=== PATIENT | male | born 1950 | race Caucasian/White ===

== ENCOUNTER → 2018-08-31 13:32 | Outpatient (CLI) | payer MEDICARE | END | disposition home or self-care (01) | LOC: D.RAD 13:32 | DX: M25.531 Pain in right wrist (principal) ==

== ENCOUNTER 2018-10-21 13:21 | Inpatient (IN) | payer MEDICARE ==
[~2018-10-21] VITALS: Ht 188 cm; Wt 122.5 kg
[2018-10-21] MEDS ORDERED: SINGULAIR10 MG PO (13:35)
[2018-10-21] MEDS ORDERED: HYDROCODON-ACE1 EA10 PO (13:35)
[2018-10-21] MEDS ORDERED: MOVANTIK25 MG PO (13:36)
[2018-10-21] MEDS ORDERED: FLOMAX0.4 MG PO (13:36)
[2018-10-21] MEDS ORDERED: COZAAR50 MG PO (13:37)
[2018-10-21] MEDS ORDERED: HCTZ25 MG PO (13:37)
[2018-10-21] MEDS ORDERED: CLARITIN 10 MG10 MG PO (13:38)
[2018-10-21] MEDS ORDERED: PROVENTIL/2.5 MG/3 M INH (13:38)
[2018-10-21] MEDS ORDERED: LYRICA25 MG PO (13:38)
[2018-10-21] MEDS ORDERED: FLOVENT HFA 22012 GM INH (13:39)
[2018-10-21] MEDS ORDERED: ATROVENT 0.02%2.5 ML UPD (13:39)
[2018-10-21 14:45] VITALS: BP 163/79
[2018-10-21 14:46] LABS: BASOPHILS 0.4 % (0-2); EOSINOPHILS 0.6 % (0-7); HEMATOCRIT 43.5 % (42.0-54.0); HEMOGLOBIN 15.4 g/dL (13.5-17.5); IMMATURE GRANULOCYTES 0.3 % (0-5); LYMPHOCYTES 19.4 % (15-50); MCH 33.9 pg (26.0-34.0); MCHC 35.4 g/dL (31.0-37.0); MCV 95.8 fL (80.0-100.0); MEAN PLATELET VOLUME 9.2 fL (7.4-10.4); MONOCYTES 11.4 % (2-11); NEUTROPHILS 67.9 % (40-80); PLATELET COUNT 372 10x3/uL (130-400); RBC 4.54 10x6/uL (4.20-6.10); RDW 12.5 % (11.5-14.5)
[2018-10-21 14:54] LABS: APTT 27.6 SECONDS (22.8-39.4); INR 1.13 (0.85-1.17)
[2018-10-21 15:03] LABS: ALBUMIN 3.8 g/dL (3.4-5.0); ALKALINE PHOSPHATASE 101 U/L (46-116); ALT (SGPT) 23 U/L (10-68); BILIRUBIN - TOTAL 0.84 mg/dL (0.2-1.3); CALC OSMOLALITY 265 mosm/kg (275-300); CALCIUM 9.2 mg/dL (8.5-10.1); CARBON DIOXIDE 29.8 mmol/L (21.0-32.0); CHLORIDE - SERUM 96 mmol/L (98-107); CREATININE - SERUM 1.5 mg/dL (0.6-1.3); GLUCOSE 118 mg/dL (74-106); POTASSIUM - SERUM 3.6 mmol/L (3.5-5.1); PROTEIN - SERUM 8.2 g/dL (6.4-8.2); SODIUM 133 mmol/L (136-145); UREA NITROGEN 10 mg/dL (7-18); eGFR NON AFRICAN AMERICAN 49 mL/min (90-120)
[2018-10-21 15:15] LABS: CKMB 0.4 U/L (0.0-3.6); CREATINE KINASE 59 UL (21-232); PRO BNP 98 pg/mL (0-125)
[2018-10-21 15:16] LABS: TROPONIN-I < 0.017 ng/mL (0.000-0.060)
[2018-10-21 15:45] VITALS: BP 145/73
[2018-10-21 17:26] VITALS: BP 163/91
[2018-10-21 18:20] VITALS: BP 163/91
--- NOTE | 2018-10-21 18:40 | NUR ---
ATTEMPTED TO AMB PT FROM BED TO HW. PT BECAME VERY DYSPNIC AND STARTED COUGHING INITIAL SATS =97% AFTER BACK TO BED SATS 90-92% ON RA
--- NOTE | 2018-10-21 19:14 | NUR ---
BS REPORT TO ARIANNE MCHUGH
[2018-10-21 19:25] VITALS: BP 137/77
[2018-10-21 22:52] VITALS: BP 141/73; BMI 34.7
[2018-10-22] VITALS: BP 138/69
[2018-10-22 03:00] VITALS: BP 139/72
[2018-10-22 06:36] LABS: BASOPHILS 0 % (0-2); EOSINOPHILS 0.1 % (0-7); HEMOGLOBIN 13.2 g/dL (13.5-17.5); IMMATURE GRANULOCYTES 0.2 % (0-5); LYMPHOCYTES 6.2 % (15-50); MCH 33.3 pg (26.0-34.0); MCHC 34.7 g/dL (31.0-37.0); MEAN PLATELET VOLUME 9.2 fL (7.4-10.4); MONOCYTES 1.1 % (2-11); NEUTROPHILS 92.4 % (40-80); PLATELET COUNT 331 10x3/uL (130-400); RBC 3.96 10x6/uL (4.20-6.10); RDW 12.4 % (11.5-14.5); WBC 9.9 10x3/uL (4.8-10.8)
[2018-10-22 06:53] LABS: ANION GAP 14.5 mmol/L (8-16); CALCIUM 8.8 mg/dL (8.5-10.1); CARBON DIOXIDE 25.2 mmol/L (21.0-32.0); CREATININE - SERUM 1.3 mg/dL (0.6-1.3); POTASSIUM - SERUM 3.7 mmol/L (3.5-5.1)
--- NOTE | 2018-10-22 07:55 | NUR ---
PT ALERT X 4. EXPIRATORY WHEEZES TO ALL [place]. TELEMETRY IN PLACE. REPORTING PAIN OF 8/10, WILL MONITOR. IV TO RIGHT FOREARM, PATENT, DRESSING CLEAN DRY AND INTACT. BED LOW, CALL LIGHT IN REACH. NO OTHER NEEDS AT THIS TIME.
[2018-10-22 09:07] VITALS: BP 146/73
[2018-10-22 10:41] VITALS: Ht 188 cm; Wt 122.5 kg
--- NOTE | 2018-10-22 10:45 | NUR ---
I have reviewed this patient and I concur with the Shift Assessment completed by the Licensed Practical Nurse today this shift.
[2018-10-22 14:16] VITALS: BP 126/66
[2018-10-22 17:15] VITALS: BP 129/67
[2018-10-22 20:00] VITALS: BP 119/58
--- NOTE | 2018-10-22 20:15 | NUR ---
LYING IN BED WITH EYES CLOSED. AWAKENED FOR ASSESSMENT. ORIENTED X4. DENIES PAIN. RESP EVEN AND NONLABORED. BBS DIMINSHED BILAT. TELEMETRY SHOWS SR WITH RATE OF 73. NO EDEMA NOTED. SCDS IN USE BILAT. USES URINAL. NS @ 75 ML/HR INFUSING IN RT FOREARM WITHOUT DIFF. RAY ALARM ON FOR PT SAFETY. SR ELEVATED X2. CL IN REACH.
--- NOTE | 2018-10-22 22:35 | NUR ---
MEDICATED WITH MORPHINE FOR C/O CHRONIC NECK AND BACK PAIN. GIVEN SNACK PER REQUEST. CL IN REACH.
--- NOTE | 2018-10-23 00:05 | NUR ---
PT HAD REQUESTED EARLIER THAT HE NOT BE AWAKENED FOR MIDNIGHT V/S.
--- NOTE | 2018-10-23 02:31 | NUR ---
REQUESTED POPSICLE. MEDICATED WITH MORPHINE FOR C/O PAIN IN NECK AND BACK. TALKATIVE WITH STAFF. NO DISTRESS. SR ELEVATED X2. CL IN REACH. RAY ALARM I USE.
[2018-10-23 03:00] VITALS: BP 109/63
[2018-10-23 06:55] LABS: BASOPHILS 0.1 % (0-2); EOSINOPHILS 0 % (0-7); HEMATOCRIT 38.1 % (42.0-54.0); HEMOGLOBIN 12.9 g/dL (13.5-17.5); IMMATURE GRANULOCYTES 0.2 % (0-5); LYMPHOCYTES 4.1 % (15-50); MCH 33.1 pg (26.0-34.0); MCHC 33.9 g/dL (31.0-37.0); MCV 97.7 fL (80.0-100.0); MEAN PLATELET VOLUME 9.5 fL (7.4-10.4); MONOCYTES 2.8 % (2-11); NEUTROPHILS 92.8 % (40-80); PLATELET COUNT 328 10x3/uL (130-400); RDW 12.8 % (11.5-14.5)
[2018-10-23 06:58] LABS: WBC 19.2 10x3/uL (4.8-10.8)
--- NOTE | 2018-10-23 07:42 | NUR ---
PT ALERT X 4. BREATH SOUNDS DIMINISHED TO LOWER LOBES, INSPIRATORY AND EXPIRATORY WHEEZES TO LEFT SIDE, EXPIRATORY WHEEZES TO RIGHT SIDE. TELEMETRY IN PLACE. IV TO RIGHT FOREARM, PATENT, DRESSING CLEAN DRY AND INTACT. SCD'S IN PLACE. PT REPORTING PAIN OF 5/10, NOT WANTING MEDICATION AT THIS TIME, WILL MONITOR. BED LOW, CALL LIGHT IN REACH. NO OTHER NEEDS AT THIS TIME.
[2018-10-23 09:54] VITALS: BP 125/60
[2018-10-23 10:08] LABS: ALBUMIN 2.9 g/dL (3.4-5.0); ANION GAP 13.8 mmol/L (8-16); BILIRUBIN - TOTAL 0.36 mg/dL (0.2-1.3); CALCIUM 8.3 mg/dL (8.5-10.1); CARBON DIOXIDE 26.6 mmol/L (21.0-32.0); CREATININE - SERUM 1.4 mg/dL (0.6-1.3); POTASSIUM - SERUM 3.4 mmol/L (3.5-5.1); PROTEIN - SERUM 6.5 g/dL (6.4-8.2)
[2018-10-23 13:43] VITALS: BP 100/58
--- NOTE | 2018-10-23 16:24 | NUR ---
I have reviewed this patient and I concur with the Shift Assessment completed by the Licensed Practical Nurse today this shift.
[2018-10-23 17:49] VITALS: BP 139/73
--- NOTE | 2018-10-23 19:15 | NUR ---
SITTING UP IN BED. ALERT AND ORIENTED X4. C/O PAIN IN BACK RATING 8. RESP IRREG. BBS EXP WHEEZES. TELEMETRY SHOWS SR WITH RATE OF 71 WITH PACS. SCDS IN USE BILAT. NO EDEMA NOTED. BRUISES NOTED TO BUE. SALINE LOCK NOTED TO LT WRIST. RAY ALARM ON FOR PT SAFETY. AMB WITH ASSIST X1. SR ELEVATED X2. CL IN REACH.
--- NOTE | 2018-10-23 19:25 | NUR ---
MEDICATED WITH FLEXERIL ORDERED FOR C/O BACK PAIN. CL IN REACH.
[2018-10-23 20:00] VITALS: BP 143/66
--- NOTE | 2018-10-24 02:20 | NUR ---
HAS RESTED WELL TONIGHT. LYING IN BED WITH EYES CLOSED. RESP EVEN AND NONLABORED. NO DISTRESS. SR ELEVATED X2. CL IN REACH.
[2018-10-24 03:00] VITALS: BP 152/84
--- NOTE | 2018-10-24 05:50 | NUR ---
MEDICATED WITH NORCO ORDERED FOR C/O BACK PAIN RATING 8. CL IN REACH.
[2018-10-24 07:51] LABS: BASOPHILS 0 % (0-2); EOSINOPHILS 0 % (0-7); HEMATOCRIT 38.7 % (42.0-54.0); HEMOGLOBIN 13.1 g/dL (13.5-17.5); IMMATURE GRANULOCYTES 0.3 % (0-5); LYMPHOCYTES 4.5 % (15-50); MCHC 33.9 g/dL (31.0-37.0); MCV 97.5 fL (80.0-100.0); MEAN PLATELET VOLUME 9.5 fL (7.4-10.4); MONOCYTES 8.2 % (2-11); PLATELET COUNT 320 10x3/uL (130-400); RBC 3.97 10x6/uL (4.20-6.10); RDW 12.6 % (11.5-14.5); WBC 14.3 10x3/uL (4.8-10.8)
[2018-10-24 08:07] LABS: ANION GAP 11.7 mmol/L (8-16); BILIRUBIN - TOTAL 0.4 mg/dL (0.2-1.3); CALCIUM 8.7 mg/dL (8.5-10.1); CARBON DIOXIDE 27.9 mmol/L (21.0-32.0); CREATININE - SERUM 1.3 mg/dL (0.6-1.3); POTASSIUM - SERUM 3.6 mmol/L (3.5-5.1); PROTEIN - SERUM 6.5 g/dL (6.4-8.2)
[2018-10-24 11:16] VITALS: BP 154/84
[2018-10-24 14:37] VITALS: BP 145/74
--- NOTE | 2018-10-24 14:42 | NUR ---
REQUESTED AND RECEIVED A NEWSPAPER. CO BACK PAIN STILL AT A 03/28. REQUESTS SOME BENADRYL FOR ITCHING NOT ORDERED BUT WILL ASK DR. SCHMIDT
--- NOTE | 2018-10-24 15:44 | NUR ---
OT NOTE: PT COMPLETED SIMPLE HYGIENE TASK SUPINE IN BED WITH SET UP. PT COMPLETED UE AROM AXS . THANK YOU, HARESH WALLACE
[2018-10-24 18:12] VITALS: BP 132/84
[2018-10-24 21:57] VITALS: BP 136/71
[2018-10-25 05:19] VITALS: BP 136/67
[2018-10-25 07:20] LABS: BASOPHILS 0 % (0-2); EOSINOPHILS 0 % (0-7); HEMOGLOBIN 13.7 g/dL (13.5-17.5); IMMATURE GRANULOCYTES 0.3 % (0-5); LYMPHOCYTES 13.8 % (15-50); MCH 33.5 pg (26.0-34.0); MCHC 34.3 g/dL (31.0-37.0); MCV 97.8 fL (80.0-100.0); MEAN PLATELET VOLUME 9.6 fL (7.4-10.4); MONOCYTES 12.7 % (2-11); NEUTROPHILS 73.2 % (40-80); PLATELET COUNT 284 10x3/uL (130-400); RBC 4.09 10x6/uL (4.20-6.10); RDW 12.5 % (11.5-14.5); WBC 12.9 10x3/uL (4.8-10.8)
--- NOTE | 2018-10-25 08:00 | NUR ---
PT RESTING EYES CLOSED EASY RISE AND FALL OF CHEST, NO SIGNS OF DISTRESS NOTED, WILL CONTINUE TO MONITOR CL IN REACH
[2018-10-25 08:10] LABS: ALBUMIN 3.2 g/dL (3.4-5.0); BILIRUBIN - TOTAL 0.73 mg/dL (0.2-1.3); CALCIUM 8.7 mg/dL (8.5-10.1); CARBON DIOXIDE 29.9 mmol/L (21.0-32.0); CREATININE - SERUM 1.4 mg/dL (0.6-1.3); PROTEIN - SERUM 6.7 g/dL (6.4-8.2)
[2018-10-25 08:28] LABS: ANION GAP 9.6 mmol/L (8-16); POTASSIUM - SERUM 3.5 mmol/L (3.5-5.1)
[2018-10-25 08:55] VITALS: BP 146/82
--- NOTE | 2018-10-25 09:49 | MORECARE ---
CASE MANAGEMENT DISCHARGE SUMMARY PATIENT: CHAZ HUGGINS UNIT: [id number] ADM DATE: 10/21/18 AGE: 68 : 49 SEX: M ROOM/BED: D.2240 AUTHOR: DIOMEDES ANDRADE PHYSICIAN: REFERRING PHYSICIAN: PATRIA MENG DO DATE OF SERVICE: 10/25/18 Discharge Plan Patient Name: CHAZ HUGGINS [facility] [facility] 1950 Planned Disposition: Inpatient Rehab Anticipated Discharge Date: Discharge Date: Expected LOS: Initial Reviewer: [email or web address] Initial Review Date: 10/25/2018 Generated: 10/25/18 10:49 am Patient Name: CHAZ HUGGINS Page [id number] at 0949 All edits/amendments must be made on the electronic document DICTATION DATE: 10/25/18948 SCHOOL ADMISSIONS REPRESENTATIVE: JACK 10/25/18948 RPT#: [id number] DC DATE: STATUS: ADM IN [facility] [address] [place] [address] END OF REPORT
--- NOTE | 2018-10-25 09:56 | MORECARE ---
CASE MANAGEMENT DISCHARGE SUMMARY PATIENT: CHAZ HUGGINS UNIT: [id number] ADM DATE: 10/21/18 AGE: 68 : 49 SEX: M ROOM/BED: D.2240 AUTHOR: DIOMEDES ANDRADE PHYSICIAN: REFERRING PHYSICIAN: PATRIA MENG DO DATE OF SERVICE: 10/25/18 Discharge Plan Patient Name: CHAZ HUGGINS [facility] : 1950 Planned Disposition: Inpatient Rehab Anticipated Discharge Date: Discharge Date: Expected LOS: Initial Reviewer: [email or web address] Initial Review Date: 10/25/2018 Generated: 10/25/18 10:56 am DCPIA - Discharge Planning Initial Assessment Updated by [email or web address]: Amarilis Eisenberg on 10/25/18 9:50 am * Is the patient Alert and Oriented? Yes * How many steps to enter\exit or inside your home? 6/0 * PCP Dr. Gilmar Chew in [place] * Pharmacy [facility] on [address] * Preadmission Environment Home Alone * ADLs Partial Dependent * Partial ADLs (Assistance needed) Ambulation * Equipment Cane Nebulizer Oxygen * List name and contact numbers for known caregivers / representatives who currently or will assist patient after discharge: Blaise Dela Cruz - [phone] * Verbal permission to speak to the caregivers and representatives has been obtained from the patient. Yes * Community resources currently utilized None * Additional services required to return to the preadmission environment? No * Can the patient safely return to the preadmission environment? Yes * Has this patient been hospitalized within the prior 30 days at any hospital? No Last DP export: 10/25/18 8:49 am Patient Name: CHAZ HUGGINS Page [id number] at 0956 All edits/amendments must be made on the electronic document DICTATION DATE: 10/25/18954 ROAD DESIGN DRAFTSPERSON: JACK 10/25/18954 RPT#: [id number] DC DATE: STATUS: ADM IN [facility] [address] [place] [address] END OF REPORT
--- NOTE | 2018-10-25 10:10 | MORECARE ---
CASE MANAGEMENT DISCHARGE SUMMARY PATIENT: CHAZ HUGGINS UNIT: [id number] ADM DATE: 10/21/18 AGE: 68 : 49 SEX: M ROOM/BED: D.2240 AUTHOR: DIOMEDES ANDRADE PHYSICIAN: REFERRING PHYSICIAN: PATRIA MENG DO DATE OF SERVICE: 10/25/18 Discharge Plan Patient Name: CHAZ HUGGINS [facility] [facility] 1950 Planned Disposition: Inpatient Rehab Anticipated Discharge Date: Discharge Date: Expected LOS: Initial Reviewer: [email or web address] Initial Review Date: 10/25/2018 Generated: 10/25/18 11:09 am Comments DCP- Discharge Planning Updated by [id number]: Amarilis Eisenberg on 10/25/18 9:[address] Patient Name: CHAZ HUGGINS Admission Status: ER Accout number: [id number] Admission Date: 10-21-2018 : 1950 Admission Diagnosis:CHRONIC OBSTRUCTIVE PULMONARY DISEASE W (ACUTE) EXACERB Attending: PATRIA MENG Current LOS: 4 Anticipated DC Date: Planned Disposition: Inpatient Rehab Primary Insurance: [facility] MEDICARE SOLUTIONS Discharge Planning Comments: CM met with patient to discuss discharge planning/needs, he is alone in the room. States he lives alone. States he has a privately hired person that assists with cooking and cleaning. States she is not from an agency, just someone he met through a friend that helps him out. States he is independent with his care and still drives. States he has a cane, nebulizer and oxygen concentrator. He does not have portable oxygen and states he would like portable oxygen. I informed him that for insurance to pay he would need his oxygen saturation less than 88%. He has not been wearing oxygen this admission. He states DME company is [employer], but he bought his own concentrator. I called Shaina at [employer] and she states that they do not provide oxygen for him. Shaina states that his insurance will not pay for the neb meds, he will need to get them at his pharmacy. At this time, he does not qualify for portable oxygen and with his back issues he would be unable to do a 6 minute walk test. I provided him with the physician referral number from out website and [employer] connections number for primary care. CM will continue to follow and assist with discharge planning/needs. Ribbon Inker: Amarilis Faina DCPIA - Discharge Planning Initial Assessment Updated by [id number]: Amarilis Eisenberg on 10/25/18 9:50 am * Is the patient Alert and Oriented? Yes * How many steps to enter\exit or inside your home? 6/0 * PCP Dr. Gilmar Chew in [place] * Pharmacy [facility] on [address] * Preadmission Environment Home Alone * ADLs Partial Dependent * Partial ADLs (Assistance needed) Ambulation * Equipment Cane Nebulizer Oxygen * List name and contact numbers for known caregivers / representatives who currently or will assist patient after discharge: Blaise Moralesd [phone] * Verbal permission to speak to the caregivers and representatives has been obtained from the patient. Yes * Community resources currently utilized None * Additional services required to return to the preadmission environment? No * Can the patient safely return to the preadmission environment? Yes * Has this patient been hospitalized within the prior 30 days at any hospital? No Coverage Notice Reviewer: [id number] - Amarilis Eisenberg Notice Issued Date-Time: 10/25/2018 10:05 Notice Type: Patient Choice Letter Notice Delivered To: Patient Relationship to Patient: Chemical Plant Operator Name: Delivery Method: HAND - Hand Delivered Yolanda Days: Prior Verbal Notification: Recipient Understood Notice: Yes Recipient Signature: Yes Med Rec Note Co-signed by Attending: Coverage Notice Comment: ELENA for Ang Gonzalez DP export: 10/25/18 8:56 am Patient Name: CHAZ HUGGINS Page [id number] at 1010 All edits/amendments must be made on the electronic document DICTATION DATE: 10/25/18 1009 CODIFIER: JACK 10/25/18 1009 RPT#: [id number] DC DATE: STATUS: ADM IN [facility] [address] [place] [address] END OF REPORT
[2018-10-25 12:24] VITALS: BP 142/85
--- NOTE | 2018-10-25 15:28 | NUR ---
I have reviewed this patient and I concur with the Shift Assessment completed by the Licensed Practical Nurse today this shift.
[2018-10-25 16:45] VITALS: BP 155/82
--- NOTE | 2018-10-25 20:00 | NUR ---
SITTING UP IN CHAIR, C/O BACK PAIN, SEE SHIFT ASSESSMENT, CALL LIGHT IN REACH
[2018-10-25 21:18] VITALS: BP 125/69
[2018-10-26 05:32] LABS: BASOPHILS 0.1 % (0-2); EOSINOPHILS 0 % (0-7); HEMATOCRIT 40.6 % (42.0-54.0); HEMOGLOBIN 13.7 g/dL (13.5-17.5); IMMATURE GRANULOCYTES 0.4 % (0-5); LYMPHOCYTES 16.4 % (15-50); MCH 33.3 pg (26.0-34.0); MCHC 33.7 g/dL (31.0-37.0); MCV 98.5 fL (80.0-100.0); MEAN PLATELET VOLUME 9.6 fL (7.4-10.4); MONOCYTES 15.3 % (2-11); NEUTROPHILS 67.8 % (40-80); PLATELET COUNT 258 10x3/uL (130-400); RBC 4.12 10x6/uL (4.20-6.10); RDW 12.4 % (11.5-14.5)
[2018-10-26 05:53] LABS: ANION GAP 8.3 mmol/L (8-16); BILIRUBIN - TOTAL 0.83 mg/dL (0.2-1.3); CALCIUM 8.3 mg/dL (8.5-10.1); CARBON DIOXIDE 32.1 mmol/L (21.0-32.0); CREATININE - SERUM 1.3 mg/dL (0.6-1.3); POTASSIUM - SERUM 3.4 mmol/L (3.5-5.1); PROTEIN - SERUM 6.6 g/dL (6.4-8.2); WBC 9.5 10x3/uL (4.8-10.8)
[2018-10-26 05:59] VITALS: BP 156/76
--- NOTE | 2018-10-26 07:40 | NUR ---
PT RESTING IN BED, EYES CLOSED. RESPIRATIONS EVEN AND UNLABORED. AROUSES TO VOICE. NO C/O PAIN. NO S/S OF ACUTE DISTRESS NOTED. PT ALERT AND ORIENTED. PT ON ELECTROLYTE PROTOCOL, POTASSIUM 3.4 COVERAGE GIVEN ON PRIOR SHIFT. IV TO LEFT FOREARM, SL. SITE PATENT WITHOUT REDNESS OR SWELLING. PT ON TELEMETRY SR 64. PT DENIES ANYTHING FURTHER AT THIS TIME. CALL LIGHT IN REACH. WILL CONTINUE TO MONITOR.
[2018-10-26 09:41] VITALS: BP 138/84
--- NOTE | 2018-10-26 09:50 | NUR ---
PT C/O PAIN TO BACK, GAVE DILAUDID 0.5MG FOR PAIN.
--- NOTE | 2018-10-26 11:55 | NUR ---
I have reviewed this patient and I concur with the Shift Assessment completed by the Licensed Practical Nurse today this shift.
[2018-10-26 15:09] VITALS: BP 127/71
--- NOTE | 2018-10-26 16:14 | MORECARE ---
CASE MANAGEMENT DISCHARGE SUMMARY PATIENT: CHAZ HUGGINS UNIT: [id number] ADM DATE: 10/21/18 AGE: 68 : 49 SEX: M ROOM/BED: D.2240 AUTHOR: LUPE,DOC PHYSICIAN: REFERRING PHYSICIAN: PATRIA MENG DO DATE OF SERVICE: 10/26/18 Discharge Plan Patient Name: CHAZ HUGGINS Facility: [facility]:[place] : 1950 Planned Disposition: Inpatient Rehab Anticipated Discharge Date: Discharge Date: Expected LOS: Initial Reviewer: [email or web address] Initial Review Date: 10/25/2018 Generated: 10/26/18 5:13 pm DCP- Discharge Planning Updated by [id number]: Amarilis Eisenberg on 10/26/18 3:[address] PT recommends ambulating with a walker. I faxed order to [employer]. CM will continue to follow and assist with discharge planning/needs. DCP- Discharge Planning Updated by [id number]: Amarilis Eisenberg on 10/25/18 9:[address] Patient Name: CHAZ HUGGINS Admission Status: ER Accout number: [id number] Admission Date: 10-21-2018 : 1950 Admission Diagnosis:CHRONIC OBSTRUCTIVE PULMONARY DISEASE W (ACUTE) EXACERB Attending: PATRIA MENG Current LOS: 4 Anticipated DC Date: Planned Disposition: Inpatient Rehab Primary Insurance: [facility] MEDICARE SOLUTIONS Discharge Planning Comments: CM met with patient to discuss discharge planning/needs, he is alone in the room. States he lives alone. States he has a privately hired person that assists with cooking and cleaning. States she is not from an agency, just someone he met through a friend that helps him out. States he is independent with his care and still drives. States he has a cane, nebulizer and oxygen concentrator. He does not have portable oxygen and states he would like portable oxygen. I informed him that for insurance to pay he would need his oxygen saturation less than 88%. He has not been wearing oxygen this admission. He states DME company is [employer], but he bought his own concentrator. I called Shaina at [employer] and she states that they do not provide oxygen for him. Shaina states that his insurance will not pay for the neb meds, he will need to get them at his pharmacy. At this time, he does not qualify for portable oxygen and with his back issues he would be unable to do a 6 minute walk test. I provided him with the physician referral number from out website and [employer] connections number for primary care. CM will continue to follow and assist with discharge planning/needs. Air Sampler: Amarilis Eisenberg DCPIA - Discharge Planning Initial Assessment Updated by [id number]: Amarilis Eisenberg on 10/25/18 9:50 am * Is the patient Alert and Oriented? Yes * How many steps to enter\exit or inside your home? 6/0 * PCP Dr. Gilmar Chew in [place] * [facility] [address] * Preadmission Environment Home Alone * ADLs Partial Dependent * Partial ADLs (Assistance needed) Ambulation * Equipment Cane Nebulizer Oxygen * List name and contact numbers for known caregivers / representatives who currently or will assist patient after discharge: Blaise Lanie - [phone] * Verbal permission to speak to the caregivers and representatives has been obtained from the patient. Yes * Community resources currently utilized None * Additional services required to return to the preadmission environment? No * Can the patient safely return to the preadmission environment? Yes * Has this patient been hospitalized within the prior 30 days at any hospital? No External Providers External Provider: Meagan Dorsey Next Contact Date: Service Request Date: Service Type: Resolution: Reviewer: Comments: Coverage Notice Reviewer: [id number] - Amarilis Faina Notice Issued Date-Time: 10/25/2018 10:05 Notice Type: Patient Choice Letter Notice Delivered To: Patient Relationship to Patient: Supervisor Airplane Flight Attendant Name: Delivery Method: HAND - Hand Delivered Yolanda Days: Prior Verbal Notification: Recipient Understood Notice: Yes Recipient Signature: Yes Med Rec Note Co-signed by Attending: Coverage Notice Comment: ELENA for Ang Gonzalez DP export: 10/25/18 9:10 am Patient Name: CHAZ HUGGINS Page [id number] at 1614 All edits/amendments must be made on the electronic document DICTATION DATE: 10/26/181612 LINK CUTTER: JACK 10/26/181612 RPT#: [id number] DC DATE: STATUS: ADM IN [facility] [address] [place] [address] END OF REPORT
[2018-10-26 17:54] VITALS: BP 100/56
--- NOTE | 2018-10-26 18:44 | NUR ---
PT RESTING IN BED, EYES OPEN. NO C/O PAIN. NO S/S OF ACUTE DISTRESS NOTED. PT DENIES ANYTHING FURTHER AT THIS TIME. CALL LIGHT IN REACH. WILL CONTINUE TO MONITOR.
--- NOTE | 2018-10-26 20:09 | NUR ---
LIGHTS OFF WHEN ENTERING THE ROOM. PT ALERT AND ORIENTED. LEFT LUNG PRESENTS WITH INSPIRATORY AND EXPIRATORY WHEEZES. REQUESTS PAIN MEDICINE BE BROUGHT IN WITH NIGHT TIME MEDS.
--- NOTE | 2018-10-26 21:18 | NUR ---
PT COMPLAINED OF BACK PAIN. RATED 7/10. ADMINISTERED PAIN MEDICINE PER ORDER.
[2018-10-26 22:22] VITALS: BP 109/66
--- NOTE | 2018-10-27 04:23 | NUR ---
I have reviewed this patient and I concur with the Shift Assessment completed by the Licensed Practical Nurse today this shift.
[2018-10-27 05:16] VITALS: BP 112/64
[2018-10-27 07:16] LABS: BASOPHILS 0 % (0-2); EOSINOPHILS 0.1 % (0-7); HEMATOCRIT 37.3 % (42.0-54.0); HEMOGLOBIN 12.7 g/dL (13.5-17.5); IMMATURE GRANULOCYTES 0.6 % (0-5); LYMPHOCYTES 22.4 % (15-50); MCV 96.9 fL (80.0-100.0); MEAN PLATELET VOLUME 9.5 fL (7.4-10.4); MONOCYTES 13.4 % (2-11); NEUTROPHILS 63.5 % (40-80); PLATELET COUNT 231 10x3/uL (130-400); RBC 3.85 10x6/uL (4.20-6.10); RDW 12.3 % (11.5-14.5); WBC 10.2 10x3/uL (4.8-10.8)
[2018-10-27 07:32] LABS: ALBUMIN 2.8 g/dL (3.4-5.0); ANION GAP 8.5 mmol/L (8-16); BILIRUBIN - TOTAL 0.97 mg/dL (0.2-1.3); CALCIUM 8.2 mg/dL (8.5-10.1); CARBON DIOXIDE 31.4 mmol/L (21.0-32.0); CREATININE - SERUM 1.2 mg/dL (0.6-1.3); POTASSIUM - SERUM 3.9 mmol/L (3.5-5.1); PROTEIN - SERUM 5.9 g/dL (6.4-8.2)
--- NOTE | 2018-10-27 07:40 | NUR ---
PT RESTING IN BED, EYES CLOSED. RESPIRATIONS EVEN AND UNLABORED. NO C/O PAIN. NO S/S OF ACUTE DISTRESS NOTED. PT ADMITTED WITH COPD EXACERBATION, T6 COMPRESSION FX. SCDS PRESENT NOT ON. PT ALERT AND ORIENTED. UP AD KEVIN. IV TO LEFT FOREARM, SL. SITE PATENT WITHOUT REDNESS OR SWELLING. FENTANYL PATCH TO RIGHT SHOULDER. PT ON TELEMETRY 52 SB. PT AROUSES TO VOICE. PT DENIES ANYTHING FURTHER AT THIS TIME. CALL LIGHT IN REACH. WILL CONTINUE TO MONITOR.
[2018-10-27] MEDS ORDERED: MIRALAX17 GM PO (08:47)
[2018-10-27] MEDS ORDERED: ROBAXIN500 MG PO (08:49)
[2018-10-27] MEDS ORDERED: Duragesic TRANSDERM (08:49)
[2018-10-27 09:05] VITALS: BP 152/77
--- NOTE | 2018-10-27 09:16 | MORECARE ---
CASE MANAGEMENT DISCHARGE SUMMARY PATIENT: CHAZ HUGGINS UNIT: [id number] ADM DATE: 10/21/18 AGE: 68 : 49 SEX: M ROOM/BED: D.2240 AUTHOR: LUPEDOC PHYSICIAN: REFERRING PHYSICIAN: PATRIA MENG DO DATE OF SERVICE: 10/27/18 Discharge Plan Patient Name: CHAZ HUGGINS [facility]:[place] : 1950 Planned Disposition: Inpatient Rehab Anticipated Discharge Date: Discharge Date: Expected LOS: Initial Reviewer: [email or web address] Initial Review Date: 10/25/2018 Generated: 10/27/18 10:16 am DCP- Discharge Planning Updated by [email or web address]: Amarilis Eisenberg on 10/26/18 3:[address] PT recommends ambulating with a walker. I faxed order to [employer]. CM will continue to follow and assist with discharge planning/needs. DCP- Discharge Planning Updated by [email or web address]: Amarilis Eisenberg on 10/25/18 9:[address] Patient Name: CHAZ HUGGINS Admission Status: ER Accout number: [id number] Admission Date: 10-21-2018 : 1950 Admission Diagnosis:CHRONIC OBSTRUCTIVE PULMONARY DISEASE W (ACUTE) EXACERB Attending: PATRIA MENG Current LOS: 4 Anticipated DC Date: Planned Disposition: Inpatient Rehab Primary Insurance: [facility] MEDICARE SOLUTIONS Discharge Planning Comments: CM met with patient to discuss discharge planning/needs, he is alone in the room. States he lives alone. States he has a privately hired person that assists with cooking and cleaning. States she is not from an agency, just someone he met through a friend that helps him out. States he is independent with his care and still drives. States he has a cane, nebulizer and oxygen concentrator. He does not have portable oxygen and states he would like portable oxygen. I informed him that for insurance to pay he would need his oxygen saturation less than 88%. He has not been wearing oxygen this admission. He states DME company is [employer], but he bought his own concentrator. I called Shaina at [employer] and she states that they do not provide oxygen for him. Shaina states that his insurance will not pay for the neb meds, he will need to get them at his pharmacy. At this time, he does not qualify for portable oxygen and with his back issues he would be unable to do a 6 minute walk test. I provided him with the physician referral number from out website and [employer] connections number for primary care. CM will continue to follow and assist with discharge planning/needs. Scenic Artist: Amarilis Eisenberg DCPIA - Discharge Planning Initial Assessment Updated by [id number]: Amarilis Eisenberg on 10/25/18 9:50 am * Is the patient Alert and Oriented? Yes * How many steps to enter\exit or inside your home? 6/0 * PCP Dr. Gilmar Chew in [place] * Pharmacy [facility] on [address] * Preadmission Environment Home Alone * ADLs Partial Dependent * Partial ADLs (Assistance needed) Ambulation * Equipment Cane Nebulizer Oxygen * List name and contact numbers for known caregivers / representatives who currently or will assist patient after discharge: Blaise Dela Cruz - [phone] * Verbal permission to speak to the caregivers and representatives has been obtained from the patient. Yes * Community resources currently utilized None * Additional services required to return to the preadmission environment? No * Can the patient safely return to the preadmission environment? Yes * Has this patient been hospitalized within the prior 30 days at any hospital? No External Providers External Provider: Gui Downing Contact Date: Service Request Date: Service Type: Resolution: Reviewer: Comments: Coverage Notice Reviewer: [id number] - Amarilis Orrkalyn Notice Issued Date-Time: 10/25/2018 10:05 Notice Type: Patient Choice Letter Notice Delivered To: Patient Relationship to Patient: Manifest Clerk Name: Delivery Method: HAND - Hand Delivered Yolanda Days: Prior Verbal Notification: Recipient Understood Notice: Yes Recipient Signature: Yes Med Rec Note Co-signed by Attending: Coverage Notice Comment: ELENA for Ang Gonzalez DP export: 10/26/18 3:13 p Patient Name: CHAZ HUGGINS Page [phone] at 0916 All edits/amendments must be made on the electronic document DICTATION DATE: 10/27/18915 AGRICULTURAL EQUIPMENT TEST ENGINEER: JACK 10/27/18915 RPT#: [id number] DC DATE: STATUS: ADM IN [facility] [address] [facility] [place] [place] [address] END OF REPORT
--- NOTE | 2018-10-27 09:41 | MORECARE ---
CASE MANAGEMENT DISCHARGE SUMMARY PATIENT: CHAZ HUGGINS UNIT: [id number] ADM DATE: 10/21/18 AGE: 68 : 49 SEX: M ROOM/BED: D.2240 AUTHOR: DIOMEDES ANDRADE PHYSICIAN: REFERRING PHYSICIAN: PATRIA MENG DO DATE OF SERVICE: 10/27/18 Discharge Plan Patient Name: CHAZ HUGGINS Facility: [facility]:[place] : 1950 Planned Disposition: Inpatient Rehab Anticipated Discharge Date: Discharge Date: Expected LOS: Initial Reviewer: [id number] Initial Review Date: 10/25/2018 Generated: 10/27/18 10:41 am Comments DCP- Discharge Planning Updated by [email or web address]: Amarilis Eisenberg on 10/27/18 8:[address] [employer] came to deliver walker and he refused. States he wants to change [employer] company to [employer]. I called [facility] and orders sent for walker. [facility] states they have received an order from his primary doctor in [place] for a new nebulizer and his nebulizer medications. Declines other needs. States he will have his private duty person help with grocery shopping. CM will continue to follow and assist with discharge planning/needs. DCP- Discharge Planning Updated by [id number]: Amarilis Eisenberg on 10/26/18 3:[address] PT recommends ambulating with a walker. I faxed order to [employer]. CM will continue to follow and assist with discharge planning/needs. DCP- Discharge Planning Updated by [email or web address]: Amarilis Faina on 10/25/18 9:[address] Patient Name: CHAZ HUGGINS Admission Status: ER Accout number: [id number] Admission Date: 10-21-2018 : 1950 Admission Diagnosis:CHRONIC OBSTRUCTIVE PULMONARY DISEASE W (ACUTE) EXACERB Attending: PATRIA MENG Current LOS: 4 Anticipated DC Date: Planned Disposition: Inpatient Rehab Primary Insurance: [facility] [employer] Discharge Planning Comments: CM met with patient to discuss discharge planning/needs, he is alone in the room. States he lives alone. States he has a privately hired person that assists with cooking and cleaning. States she is not from an agency, just someone he met through a friend that helps him out. States he is independent with his care and still drives. States he has a cane, nebulizer and oxygen concentrator. He does not have portable oxygen and states he would like portable oxygen. I informed him that for insurance to pay he would need his oxygen saturation less than 88%. He has not been wearing oxygen this admission. He states DME company is [employer], but he bought his own concentrator. I called Shaina at [employer] and she states that they do not provide oxygen for him. Shaina states that his insurance will not pay for the neb meds, he will need to get them at his pharmacy. At this time, he does not qualify for portable oxygen and with his back issues he would be unable to do a 6 minute walk test. I provided him with the physician referral number from out website and [employer] number for primary care. CM will continue to follow and assist with discharge planning/needs. Wetlands Conservation Laborer: Amarilsi Eisenberg DCPIA - Discharge Planning Initial Assessment Updated by [id number]: Amarilis Eisenberg on 10/25/18 9:50 am * Is the patient Alert and Oriented? Yes * How many steps to enter\exit or inside your home? 6/0 * PCP Dr. Gilmar Chew in [place] * [facility] [address] * Preadmission Environment Home Alone * ADLs Partial Dependent * Partial ADLs (Assistance needed) Ambulation * Equipment Cane Nebulizer Oxygen * List name and contact numbers for known caregivers / representatives who currently or will assist patient after discharge: Blaise Dela Cruz - [phone] * Verbal permission to speak to the caregivers and representatives has been obtained from the patient. Yes * Community resources currently utilized None * Additional services required to return to the preadmission environment? No * Can the patient safely return to the preadmission environment? Yes * Has this patient been hospitalized within the prior 30 days at any hospital? No Coverage Notice Reviewer: [id number] - Amarilis Eisenberg Notice Issued Date-Time: 10/25/2018 10:05 Notice Type: Patient Choice Letter Notice Delivered To: Patient Relationship to Patient: Hot Air Furnace Installer Repairer Name: Delivery Method: HAND - Hand Delivered Yolanda Days: Prior Verbal Notification: Recipient Understood Notice: Yes Recipient Signature: Yes Med Rec Note Co-signed by Attending: Coverage Notice Comment: ELENA for Ang Reviewer: [id number] Paloma Eisenberg Notice Issued Date-Time: 10/27/2018 9:27 Notice Type: IM Discharge Notice Notice Delivered To: Patient Relationship to Patient: Self Hot Air Furnace Installer Repairer Name: Delivery Method: HAND - Hand Delivered Yolanda Days: Prior Verbal Notification: Recipient Understood Notice: Yes Recipient Signature: Yes Med Rec Note Co-signed by Attending: Coverage Notice Comment: IMM explained, signed, given, copy placed in MR Last DP export: 10/27/18 8:16 a Patient Name: CHAZ HUGGINS Page [phone] at 0941 All edits/amendments must be made on the electronic document DICTATION DATE: 10/27/18939 BASEBALL INSPECTOR AND REPAIRER: JACK 10/27/18939 RPT#: [id number] DC DATE: STATUS: ADM IN [facility] [address] [place] [address] END OF REPORT
[2018-10-27] MEDS ORDERED: DILAUDID2 MG PO (11:08)
--- NOTE | 2018-10-27 11:47 | NUR ---
I have reviewed this patient and I concur with the Shift Assessment completed by the Licensed Practical Nurse today this shift.
[2018-10-27 12:47] VITALS: BP 131/80
--- NOTE | 2018-10-27 14:57 | NUR ---
PT DISCHARGED HOME WITH FAMILY VIA WHEELCHAIR ACCOMPANIED BY HOSPITAL STAFF. NO C/O PAIN. NO S/S OF ACUTE DISTRESS NOTED. WENT OVER DISCHARGE INSTRUCTIONS WITH PT, PT VERBALIZED UNDERSTANDING. DISCONTINUED IV, CATHETER TIP INTACT. PT DENIES ANYTHING FURTHER.
== END 2018-10-27 14:59 | disposition home or self-care (01) | DRG 560 ==
LOC: D.ER 13:21 → D.EDHOLD 18:53 → D.MS 18:53
PROVIDERS: Family Medicine; ADMIT Family Medicine; ATTEND Family Medicine
DX: M48.54XG Collapsed vertebra, not elsewhere classified, thoracic region, subsequent encounter for fracture with delayed healing (principal); J44.1 Chronic obstructive pulmonary disease with (acute) exacerbation; I11.0 Hypertensive heart disease with heart failure; I25.10 Atherosclerotic heart disease of native coronary artery without angina pectoris

== ENCOUNTER 2018-10-28 14:42 | Observation (INO) | payer MEDICARE, MEDICAID ==
[~2018-10-28 14:42] MED LIST: ATROVENT 0.02%2.5 ML UPD; CLARITIN 10 MG10 MG PO; COZAAR50 MG PO; DILAUDID2 MG PO; Duragesic TRANSDERM; FLOMAX0.4 MG PO; FLOVENT HFA 22012 GM INH; HCTZ25 MG PO; HYDROCODON-ACE1 EA10 PO; LYRICA25 MG PO; MIRALAX17 GM PO; MOVANTIK25 MG PO; PROVENTIL/2.5 MG/3 M INH; ROBAXIN500 MG PO; SINGULAIR10 MG PO
[2018-10-28 15:28] LABS: BASOPHILS 0.1 % (0-2); EOSINOPHILS 0.5 % (0-7); HEMATOCRIT 40.3 % (42.0-54.0); IMMATURE GRANULOCYTES 0.8 % (0-5); LYMPHOCYTES 15.8 % (15-50); MCH 33.5 pg (26.0-34.0); MCHC 34.7 g/dL (31.0-37.0); MCV 96.4 fL (80.0-100.0); MEAN PLATELET VOLUME 9.8 fL (7.4-10.4); MONOCYTES 16.2 % (2-11); NEUTROPHILS 66.6 % (40-80); PLATELET COUNT 276 10x3/uL (130-400); RBC 4.18 10x6/uL (4.20-6.10); RDW 12.1 % (11.5-14.5)
[2018-10-28 15:42] LABS: ALBUMIN 3.2 g/dL (3.4-5.0); ANION GAP 11.7 mmol/L (8-16); BILIRUBIN - TOTAL 1.38 mg/dL (0.2-1.3); CALCIUM 8.1 mg/dL (8.5-10.1); CARBON DIOXIDE 29.1 mmol/L (21.0-32.0); POTASSIUM - SERUM 3.8 mmol/L (3.5-5.1); PROTEIN - SERUM 6.7 g/dL (6.4-8.2)
[2018-10-28 15:45] LABS: CREATININE - SERUM 1.7 mg/dL (0.6-1.3)
[2018-10-28 15:49] LABS: WBC 18.1 10x3/uL (4.8-10.8)
[2018-10-28 19:00] VITALS: BP 118/71
[2018-10-28 20:00] VITALS: BP 136/80
[2018-10-28 23:55] VITALS: BP 124/70
[2018-10-29 03:38] VITALS: BP 124/70; BMI 32.1
[2018-10-29 04:35] LABS: BASOPHILS 0.1 % (0-2); EOSINOPHILS 0.7 % (0-7); IMMATURE GRANULOCYTES 0.7 % (0-5); LYMPHOCYTES 18.1 % (15-50); MCH 33.3 pg (26.0-34.0); MCHC 34.2 g/dL (31.0-37.0); MCV 97.4 fL (80.0-100.0); MEAN PLATELET VOLUME 9.5 fL (7.4-10.4); MONOCYTES 16.2 % (2-11); NEUTROPHILS 64.2 % (40-80); PLATELET COUNT 228 10x3/uL (130-400); RDW 12.2 % (11.5-14.5); WBC 14.8 10x3/uL (4.8-10.8)
[2018-10-29 04:52] LABS: ANION GAP 8.1 mmol/L (8-16); POTASSIUM - SERUM 4.1 mmol/L (3.5-5.1)
[2018-10-29 04:53] LABS: CREATININE - SERUM 1.2 mg/dL (0.6-1.3)
[2018-10-29 08:37] LABS: % SATURATION 48 % (15-55); IRON 104 ug/dl (35-150); TOTAL IRON BIND CAPACITY 216 ug/dl (260-445); UNSAT IRON BIND CAPACITY 112 ug/dl (150-375)
[2018-10-29 08:48] VITALS: BP 108/64
[2018-10-29 12:25] VITALS: BP 121/79
[2018-10-29 15:59] VITALS: BP 125/80
[2018-10-29 17:22] LABS: APPEARANCE CLEAR (CLEAR); COLOR YELLOW (YELLOW)
[2018-10-29 17:23] LABS: BILIRUBIN NEGATIVE (NEGATIVE); GLUCOSE NEGATIVE (NEGATIVE); KETONE NEGATIVE (NEGATIVE); NITRITE NEGATIVE (NEGATIVE); PROTEIN NEGATIVE (NEGATIVE); UROBILINOGEN NORMAL (NORMAL)
[2018-10-29 20:44] VITALS: BP 95/65
[2018-10-30 00:54] VITALS: BP 111/56
[2018-10-30 04:00] VITALS: BP 120/69
[2018-10-30 04:43] LABS: BASOPHILS 0.1 % (0-2); HEMATOCRIT 35.9 % (42.0-54.0); HEMOGLOBIN 12.3 g/dL (13.5-17.5); IMMATURE GRANULOCYTES 0.8 % (0-5); LYMPHOCYTES 17.8 % (15-50); MCH 33.1 pg (26.0-34.0); MCHC 34.3 g/dL (31.0-37.0); MCV 96.5 fL (80.0-100.0); MEAN PLATELET VOLUME 9.7 fL (7.4-10.4); MONOCYTES 15.1 % (2-11); NEUTROPHILS 65.2 % (40-80); PLATELET COUNT 265 10x3/uL (130-400); RBC 3.72 10x6/uL (4.20-6.10); WBC 12.2 10x3/uL (4.8-10.8)
[2018-10-30 05:02] LABS: ANION GAP 10.6 mmol/L (8-16); CALCIUM 8.2 mg/dL (8.5-10.1); CARBON DIOXIDE 30.4 mmol/L (21.0-32.0); CREATININE - SERUM 1.2 mg/dL (0.6-1.3)
[2018-10-30 07:58] VITALS: BP 137/69
[2018-10-30 11:22] VITALS: BP 132/73
[2018-10-30 16:10] VITALS: BP 114/61
[2018-10-30 20:00] VITALS: BP 111/54
[2018-10-31] VITALS: BP 119/67
[2018-10-31 04:00] VITALS: BP 117/96
[2018-10-31 05:59] LABS: BASOPHILS 0.1 % (0-2); EOSINOPHILS 0.9 % (0-7); HEMATOCRIT 38.7 % (42.0-54.0); HEMOGLOBIN 13.2 g/dL (13.5-17.5); IMMATURE GRANULOCYTES 1.4 % (0-5); LYMPHOCYTES 20.3 % (15-50); MCH 33.6 pg (26.0-34.0); MCHC 34.1 g/dL (31.0-37.0); MEAN PLATELET VOLUME 9.7 fL (7.4-10.4); MONOCYTES 15.1 % (2-11); NEUTROPHILS 62.2 % (40-80); PLATELET COUNT 255 10x3/uL (130-400); RBC 3.93 10x6/uL (4.20-6.10); RDW 12.2 % (11.5-14.5)
[2018-10-31 06:13] LABS: ANION GAP 9.7 mmol/L (8-16); CALCIUM 8.3 mg/dL (8.5-10.1); CARBON DIOXIDE 32.9 mmol/L (21.0-32.0); CREATININE - SERUM 1.3 mg/dL (0.6-1.3); POTASSIUM - SERUM 3.6 mmol/L (3.5-5.1)
[2018-10-31 06:16] LABS: MCV 98.5 fL (80.0-100.0)
[2018-10-31 07:53] VITALS: BP 126/72
[2018-10-31 11:09] LABS: FOLATE (FOLIC ACID) - SERUM 14.2 ng/mL (>3.0)
[2018-10-31 14:46] VITALS: BP 123/75
[2018-10-31 20:00] VITALS: BP 117/44
[2018-11-01 00:59] VITALS: BP 109/59
[2018-11-01 05:49] VITALS: BP 106/71
[2018-11-01 05:49] LABS: BASOPHILS 0.2 % (0-2); EOSINOPHILS 0.9 % (0-7); HEMATOCRIT 38.4 % (42.0-54.0); HEMOGLOBIN 13.2 g/dL (13.5-17.5); IMMATURE GRANULOCYTES 0.9 % (0-5); MCH 33.2 pg (26.0-34.0); MCHC 34.4 g/dL (31.0-37.0); MEAN PLATELET VOLUME 9.4 fL (7.4-10.4); MONOCYTES 13.2 % (2-11); NEUTROPHILS 66.8 % (40-80); PLATELET COUNT 255 10x3/uL (130-400); RBC 3.98 10x6/uL (4.20-6.10); WBC 10.4 10x3/uL (4.8-10.8)
[2018-11-01 05:56] LABS: MCV 96.5 fL (80.0-100.0)
[2018-11-01 06:15] LABS: ANION GAP 9.9 mmol/L (8-16); CALCIUM 8.6 mg/dL (8.5-10.1); CARBON DIOXIDE 31.8 mmol/L (21.0-32.0); CREATININE - SERUM 1.4 mg/dL (0.6-1.3); POTASSIUM - SERUM 3.7 mmol/L (3.5-5.1)
[2018-11-01 10:25] VITALS: BP 133/73
[2018-11-01] MEDS ORDERED: FLORAJEN3 CAPS460 MG PO (11:21)
[2018-11-01 12:22] VITALS: BMI 32.1
--- NOTE | 2018-11-02 08:11 | MORECARE ---
CASE MANAGEMENT DISCHARGE SUMMARY PATIENT: CHAZ HUGGINS UNIT: [id number] ADM DATE: 10/28/18 AGE: 68 : 49 SEX: M ROOM/BED: D.2104 AUTHOR: DIOMEDES ANDRADE PHYSICIAN: REFERRING PHYSICIAN: PADMA YORK MD DATE OF SERVICE: 11/02/18 Discharge Plan Patient Name: CHAZ HUGGINS Facility: [facility]:[place] : 1950 Planned Disposition: Home Anticipated Discharge Date: 11/01/18 Discharge Date: 11/01/2018 Expected LOS: 4 Initial Reviewer: [email or web address] Initial Review Date: 11/02/2018 Generated: 11/02/18 9:11 am Comments DCP- Discharge Planning Updated by [id number]: Kate Ann on 11/01/18 11:[address] SPOKE WITH SINDHU GALDAMEZ APN IN REGARDS TO DISCHARGE. PATIENT WILL DISCHARGE TODAY AND FOLLOW UP AT HIS PREVIOUSLY SCHEDULED PROCEDURE TOMORROW WITH DR ROCA. SHE HAS REQUESTED I SPEAK WITH THE PATIENT ABOUT THIS. I WENT IN ROOM AND SPOKE WITH HIM. HE STATED HE WAS OK WITH IT LONG HE COULD HAVE ORAL PAIN MEDS AND THE RELAXER PILL. I ASKED IF HE RECEIVED SCRIPTS FOR PAIN MEDS WHEN THEY DISCHARGED HIM ON WEDNESDAY FROM THE OTHER SIDE. HE STATED HE RECEIVED A SCRIPT FOR 2 PAIN PATCHES, BUT HIS PHARMACIST CALLED AND SAID HE COULD NOT FILL THAT SCRIPT BECAUSE THEY CAME IN A BOX OF 5 AND HE WAS NOT ALLOWED TO SPLIT A BOX. I TALKED TO SINDHU ABOUT THIS, AND SHE REQUESTED I LOOK AT WHAT WAS FILLED BECAUSE HE WAS SUPPOSE TO BE DISCHARGED ON DILAUDID. ON PHARMACY LOOK UP, IT SHOW THAT THE PATIENT HAD ROBAXIN #60 FILLED ON 10/27 AND DILAUDID #30 FILLED ON 10/28. I WENT AND DISCUSSED THIS WITH THE PATIENT, AND HE STATED THAT HE REMEMBERED THAT NOW AND SAID HE WILL HAVE TO FIND SOMEONE TO TAKE HIM TO THE PHARMACY TO GET THEM HE DOES NOT HAVE A CAR. I ASKED IF THE PERSON PICKING HIM UP COULD SWING BY AND LET HIM GET THEM BEFORE THEY TAKE HIM HOME. HE STATED HE WOULD ASK. I HAVE LET SINDHU GALDAMEZ APN KNOW OF THESE FINDINGS. DCP- Discharge Planning Updated by [id number]: Kate Ann on 10/31/18 1:[address] @9863 I RECEIVED A CALL FROM LUIS AT DR JARON MADISON'S OFFICE IN [place]. SHE STATE THEY ARE THE PATIENTS PCP AND WANTED HIS RECORDS FROM THIS STAY SENT TO THEM AND A RECORD OF THE SURGERY HE WAS SCHEDULED FOR. I EXPLAINED THAT HIS SURGERY WOULD HAVE BEEN SCHEDULED AND IN HIS RECORDS FROM THIS PREVIOUS STAY, AND THAT HE WASN'T SCHEDULED FOR ANY SURGERY THIS STAY, JUST A NEUROSURGERY CONSULT. SHE CONTINUED TO TALK IF HE WAS SCHEDULED FOR A SURGERY, I OPENED HIS LAST CHART (WHICH SHE STATED SHE ALREADY HAD THE INFORMATION FROM) AND THE PATIENT DID NOT LOOK TO BE SIGNED UP FOR A SURGERY, THAT HE JUST HAD A FOLLOW UP SCHEDULED WITH DR ROCA AND A ESTER BRACE ORDERED. I EXPLAINED THAT WE HAVE NO ORDERES FOR SURGERY. SHE AGAIN REQUESTED HIS RECORDS WITH A NOTE TO BE INCLUDED THAT SAID WHEN AND WHAT SURGERY WAS BEING DONE. I AGAIN EXPLAINED THAT THERE WAS NO SURGERY SCHEDULED AND SHE REPEATED IT FOR A 3RD TIME. I OBTAINED THE FAX # [phone] TO FAX RECORDS TO. I WENT INTO THE PATIENTS ROOM AND OBTAINED HIS CONSENT TO SEND HIS RECORDS, AND A DISCLOSURE FORM WAS FILLED OUT AND SIGNED. WHILE I WAS IN THERE, HE QUESTIONED ME ABOUT WHAT WAS TAKING SO LONG FOR HIM TO HAVE HIS SURGERY. I EXPLAINED THAT RIGHT NOW HE WAS NOT SCHEDULED FOR ANYTHING BUT PAIN CONTROL. HE STATED THAT HE HAS LOOKED UP THE INFORMATION AND KNOWS THAT THE INJECTION ONLY TAKES A FEW MINUTES AND HE JUST CAN'T UNDERSTAND WHY HE HASN'T HAD IT. I EXPLAINED TO HIM THAT KYPHOPLASTY IS USUALLY AN OUTPATIENT PROCEDURE AND USUALLY WE SCHEDULE THEM FOR FOLLOW UP APPOINTMENT AFTER DISCHARGE FOR IT TO BE DONE. HE STATED AGAIN THAT HE DID NOT UNDERSTAND WHY WE WERE DRAGGING OUR FEET AND NOT JUST DOING IT HERE. I AGAIN TRIED TO EXPLAINE, BUT THE PATEINT HAS EXPLAINED THAT HE LIVES ALONE AND HAS NO ONE TO TAKE CARE OF HIM AT HOME AND HE WANTED IT TO BE DONE HERE, THAT IT DIDN'T TAKE BUT A FEW MINUTES TO DO. INSTEAD OF REPEATING MYSELF OVER AND OVER AGAIN, I SIMPLE STATED THAT DR ROCA HAS BEEN CONSULTED TO COME AND SEE HIM THIS ADMISSION WELL, AND HE COULD HAVE THIS CONVERSATION WITH HIM. THAT RIGHT NOW OTHER THAN GIVING HIM PAIN MEDS TO CONTROL HIS PAIN, EVERYTHING ELSE WAS JUST IN STAND STILL UNTIL SEEN BY DR ROCA. THE THANKED ME FOR MY TIME, I EXITED THE ROOM, AND HIS NURSE GLO VILLALPANDO WAS SCANNING PAIN MEDICATIONS TO ADMINISTER. I WILL FAX RECORDS REQUESTED. External Providers External Provider: OTHER-OTHER Next Contact Date: Service Request Date: Service Type: Resolution: Reviewer: Comments: Coverage Notice Reviewer: [id number] - Shana Ordoñez Notice Issued Date-Time: 10/30/2018 13:06 Notice Type: Medicare Outpatient Observation Notice Notice Delivered To: Patient Relationship to Patient: Self Interior Design Consultant Name: Delivery Method: HAND - Hand Delivered Yolanda Days: Prior Verbal Notification: Recipient Understood Notice: Yes Recipient Signature: Yes Med Rec Note Co-signed by Attending: Coverage Notice Comment: CM attempted to deliver 10/29/18 pm. however the patient was is severe neck and back pain. he ask CM to please get his nurse. Pain management had been an issue all day. However he was extremely uncomfortable. spoke with him this pm after cardiovascular surgeon visit. Patient Name: CHAZ HUGGINS Page [phone] at 0811 All edits/amendments must be made on the electronic document DICTATION DATE: 11/02/18809 FLOORWORKER: JACK 11/02/18809 RPT#: [id number] DC DATE:11/01/18 STATUS: DIS IN [facility] [address] [facility] [place] [address] END OF REPORT
--- NOTE | 2018-11-02 14:39 | EC ---
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 Ao 155 cm/sec RVOT 97 cm/sec RA cm/sec PA 92 cm/sec AV Gradient Peak 9.6 mmHg AV Mean 5.3 mmHg AV Area 3.8 cm MV Gradient Peak 3.8 mmHg MV Mean 2.0 mmHg MV Area cm COMMENTS: Dental Hygiene Teacher: Geoff GREER Assembly Person: 1 Dr. Mariscal TAPE# PACS Pericardial Effusion N DATE OF SERVICE: 10/30/2018 FINDINGS: 1. Left ventricular chamber size is within normal limits. Left ventricular systolic function is normal. Overall ejection fraction is estimated at 55%. 2. Left atrium, right atrium, and right ventricular chamber sizes are within normal limit. 3. Valvular structures have normal structure and motion. 4. Doppler interrogation reveals no significant valvular insufficiency or stenosis. Pulmonary systolic pressure is estimated at 18 mmHg. ECHOCARDIOGRAM REPORT [id number] CHAZ HUGGINS 5. No evidence of pericardial effusion or left ventricular thrombus. TRANSINT:[id number] Voice Confirmation ID: [id number] DOCUMENT ID: [id number] ANEUDY MARISCAL MD at 1439 CC: [id number] DICTATION DATE: 10/31/[address] JUDGE: 10/31/18 1505 DIS IN 11/01/18 [place] [id number] [place] [id number]
== END 2018-11-01 15:02 | disposition home or self-care (01) ==
LOC: D.ER 14:42 → D.EDHOLD 18:57 → D.M2 20:14
PROVIDERS: Emergency Medicine; ADMIT Internal Medicine Nephrology
DX: S22.059D Unspecified fracture of T5-T6 vertebra, subsequent encounter for fracture with routine healing (principal); X58.XXXD Exposure to other specified factors, subsequent encounter; D50.9 Iron deficiency anemia, unspecified; E87.1 Hypo-osmolality and hyponatremia; I10 Essential (primary) hypertension; J96.10 Chronic respiratory failure, unspecified whether with hypoxia or hypercapnia; I25.10 Atherosclerotic heart disease of native coronary artery without angina pectoris; K59.09 Other constipation; G62.9 Polyneuropathy, unspecified; I71.2 Thoracic aortic aneurysm, without rupture; J44.9 Chronic obstructive pulmonary disease, unspecified

== ENCOUNTER 2018-11-02 19:27 | Observation (INO) | payer MEDICARE, MEDICAID ==
[~2018-11-02 19:27] MED LIST changes: +FLORAJEN3 CAPS460 MG PO
[2018-11-02 20:30] VITALS: BP 119/71
[2018-11-02 21:30] VITALS: BP 136/70
[2018-11-02 22:28] VITALS: BP 155/76
[2018-11-03 00:37] VITALS: BP 155/76; BMI 32.1
[2018-11-03 05:02] VITALS: BP 157/65
[2018-11-03 08:20] VITALS: BP 132/81
[2018-11-03 09:58] LABS: BASOPHILS 0.1 % (0-2); EOSINOPHILS 0 % (0-7); HEMATOCRIT 37.1 % (42.0-54.0); HEMOGLOBIN 13.3 g/dL (13.5-17.5); IMMATURE GRANULOCYTES 0.3 % (0-5); LYMPHOCYTES 5.2 % (15-50); MCH 33.7 pg (26.0-34.0); MCHC 35.8 g/dL (31.0-37.0); MCV 93.9 fL (80.0-100.0); MEAN PLATELET VOLUME 9.2 fL (7.4-10.4); MONOCYTES 4.2 % (2-11); NEUTROPHILS 90.2 % (40-80); PLATELET COUNT 270 10x3/uL (130-400); RBC 3.95 10x6/uL (4.20-6.10); WBC 11.8 10x3/uL (4.8-10.8)
[2018-11-03 10:18] LABS: ALBUMIN 3.2 g/dL (3.4-5.0); ANION GAP 14.2 mmol/L (8-16); BILIRUBIN - TOTAL 0.78 mg/dL (0.2-1.3); CALCIUM 8.8 mg/dL (8.5-10.1); CARBON DIOXIDE 24.3 mmol/L (21.0-32.0); CREATININE - SERUM 1.3 mg/dL (0.6-1.3); POTASSIUM - SERUM 3.5 mmol/L (3.5-5.1); PROTEIN - SERUM 7.1 g/dL (6.4-8.2)
== END 2018-11-03 13:30 | disposition home or self-care (01) ==
LOC: D.ER 19:27 → D.EDHOLD 21:11 → D.MS 22:00
PROVIDERS: Family Medicine; ADMIT Family Medicine
DX: G25.1 Drug-induced tremor (principal); T50.7X5A Adverse effect of analeptics and opioid receptor antagonists, initial encounter; I10 Essential (primary) hypertension; J44.9 Chronic obstructive pulmonary disease, unspecified; M79.7 Fibromyalgia; D50.9 Iron deficiency anemia, unspecified; G89.29 Other chronic pain

== ENCOUNTER 2018-12-30 13:29 | Emergency (ER) | payer MEDICARE ==
[~2018-12-30] VITALS: Ht 188 cm; Wt 113.6 kg
[2018-12-30 13:37] VITALS: Ht 188 cm; Wt 113.6 kg
[2018-12-30 14:03] LABS: BASOPHILS 0.5 % (0-2); EOSINOPHILS 0.6 % (0-7); HEMATOCRIT 45.9 % (42.0-54.0); HEMOGLOBIN 16.1 g/dL (13.5-17.5); IMMATURE GRANULOCYTES 0.3 % (0-5); MCH 34.3 pg (26.0-34.0); MCHC 35.1 g/dL (31.0-37.0); MCV 97.9 fL (80.0-100.0); MEAN PLATELET VOLUME 9.5 fL (7.4-10.4); MONOCYTES 9.6 % (2-11); PLATELET COUNT 287 10x3/uL (130-400); RBC 4.69 10x6/uL (4.20-6.10); RDW 13.1 % (11.5-14.5); WBC 9.5 10x3/uL (4.8-10.8)
[2018-12-30 14:19] LABS: ALKALINE PHOSPHATASE 89 U/L (46-116); ALT (SGPT) 27 U/L (10-68); BILIRUBIN - TOTAL 1.09 mg/dL (0.2-1.3); CALC OSMOLALITY 279 mosm/kg (275-300); CALCIUM 9.5 mg/dL (8.5-10.1); CARBON DIOXIDE 26.1 mmol/L (21.0-32.0); CHLORIDE - SERUM 101 mmol/L (98-107); CREATININE - SERUM 1.3 mg/dL (0.6-1.3); GLUCOSE 126 mg/dL (74-106); POTASSIUM - SERUM 3.4 mmol/L (3.5-5.1); PROTEIN - SERUM 7.9 g/dL (6.4-8.2); SODIUM 139 mmol/L (136-145); UREA NITROGEN 12 mg/dL (7-18); eGFR NON AFRICAN AMERICAN 58 mL/min (90-120)
[2018-12-30 14:31] LABS: CKMB 0.5 U/L (0.0-3.6); CREATINE KINASE 78 UL (21-232); PRO BNP 78 pg/mL (0-125); TROPONIN-I < 0.017 ng/mL (0.000-0.060)
[2018-12-30 14:35] LABS: INR 1.1 (0.85-1.17); PROTIME 13.7 SECONDS (11.6-15.0)
[2018-12-30 14:36] LABS: APTT 28.9 SECONDS (22.8-39.4)
[2018-12-30] MEDS ORDERED: PROZAC20 MG PO (17:36)
[2018-12-30] MEDS ORDERED: PAXIL20 MG PO (17:38)
[2018-12-30 18:15] VITALS: BP 128/89
--- NOTE | 2018-12-30 18:47 | NUR ---
SPOKE WITH PT AND HE HAD CAME TO THE EMERGENCY ROOM TO GO TO REHAB. HE HAD SPOKE WITH NACHO EARLIER IN THE DAY AND SHE TOOK INSURANCE INFORMATION. PT STATED, "SHE NEVER CALLED ME BACK SO I CAME TO THE EMERGENCY ROOM." RESOURCES DISCUSSED BUT PT IS NOT INTERESTED IN THEM. HE WANTS TO BE ADMITTED TO REHAB. CALLED REHAB TO DISCUSS PT.
== END 2018-12-30 19:29 | disposition home or self-care (01) ==
LOC: D.ER 13:29
PROVIDERS: Emergency Medicine
DX: K59.09 Other constipation (principal); F41.9 Anxiety disorder, unspecified; F32.9 Major depressive disorder, single episode, unspecified; F41.0 Panic disorder [episodic paroxysmal anxiety]

== ENCOUNTER 2019-07-09 18:22 | Emergency (ER) | payer MEDICARE ==
[~2019-07-09] VITALS: Ht 188 cm; Wt 113.6 kg
[2019-07-09 18:22] VITALS: Ht 188 cm; Wt 113.6 kg
[~2019-07-09 18:22] MED LIST changes: +PAXIL20 MG PO; +PROZAC20 MG PO
[2019-07-09 19:13] LABS: BASOPHILS 0.6 % (0-2); EOSINOPHILS 0.9 % (0-7); HEMATOCRIT 45.7 % (42.0-54.0); HEMOGLOBIN 15.8 g/dL (13.5-17.5); IMMATURE GRANULOCYTES 0.3 % (0-5); LYMPHOCYTES 13.3 % (15-50); MCHC 34.6 g/dL (31.0-37.0); MCV 95.4 fL (80.0-100.0); MEAN PLATELET VOLUME 9.5 fL (7.4-10.4); NEUTROPHILS 75.9 % (40-80); PLATELET COUNT 317 10x3/uL (130-400); RBC 4.79 10x6/uL (4.20-6.10); RDW 12.6 % (11.5-14.5); WBC 14.7 10x3/uL (4.8-10.8)
[2019-07-09 19:23] LABS: CALC OSMOLALITY 272 mosm/kg (275-300); CALCIUM 9.4 mg/dL (8.5-10.1); CARBON DIOXIDE 22.7 mmol/L (21.0-32.0); CHLORIDE - SERUM 100 mmol/L (98-107); CREATININE - SERUM 1.3 mg/dL (0.6-1.3); GLUCOSE 139 mg/dL (74-106); POTASSIUM - SERUM 3.6 mmol/L (3.5-5.1); SODIUM 136 mmol/L (136-145); UREA NITROGEN 11 mg/dL (7-18); eGFR NON AFRICAN AMERICAN 58 mL/min (90-120)
[2019-07-09 19:31] LABS: ALKALINE PHOSPHATASE 88 U/L (46-116); ALT (SGPT) 26 U/L (10-68); BILIRUBIN - TOTAL 1.32 mg/dL (0.2-1.3); PROTEIN - SERUM 7.6 g/dL (6.4-8.2); TROPONIN-I < 0.017 ng/mL (0.000-0.060)
[2019-07-09] MEDS ORDERED: ATIVAN1 MG PO (20:17)
[2019-07-09 20:42] VITALS: BP 145/78
== END 2019-07-09 20:44 | disposition home or self-care (01) ==
LOC: D.ER 18:22
PROVIDERS: Emergency Medicine
DX: F41.9 Anxiety disorder, unspecified (principal); I10 Essential (primary) hypertension; J44.9 Chronic obstructive pulmonary disease, unspecified; M54.9 Dorsalgia, unspecified; N40.0 Benign prostatic hyperplasia without lower urinary tract symptoms

== ENCOUNTER 2019-07-20 09:53 | Emergency (ER) | payer MEDICARE ==
[~2019-07-20] VITALS: Ht 188 cm; Wt 120.5 kg
[~2019-07-20 09:53] MED LIST changes: +ATIVAN1 MG PO
[2019-07-20 10:00] VITALS: Ht 188 cm; Wt 120.5 kg
[2019-07-20 10:16] LABS: BASOPHILS 1.7 % (0-2); EOSINOPHILS 2.7 % (0-7); HEMATOCRIT 45.2 % (42.0-54.0); HEMOGLOBIN 15.5 g/dL (13.5-17.5); IMMATURE GRANULOCYTES 0.3 % (0-5); LYMPHOCYTES 43.6 % (15-50); MCH 33.5 pg (26.0-34.0); MCHC 34.3 g/dL (31.0-37.0); MCV 97.8 fL (80.0-100.0); MEAN PLATELET VOLUME 9.6 fL (7.4-10.4); MONOCYTES 11.8 % (2-11); NEUTROPHILS 39.9 % (40-80); PLATELET COUNT 328 10x3/uL (130-400); RBC 4.62 10x6/uL (4.20-6.10); RDW 12.9 % (11.5-14.5); WBC 7.9 10x3/uL (4.8-10.8)
[2019-07-20 10:26] LABS: CALC OSMOLALITY 279 mosm/kg (275-300); CALCIUM 9.2 mg/dL (8.5-10.1); CARBON DIOXIDE 25.4 mmol/L (21.0-32.0); CHLORIDE - SERUM 103 mmol/L (98-107); CREATININE - SERUM 1.1 mg/dL (0.6-1.3); GLUCOSE 111 mg/dL (74-106); SODIUM 140 mmol/L (136-145); UREA NITROGEN 13 mg/dL (7-18); eGFR NON AFRICAN AMERICAN 70 mL/min (90-120)
[2019-07-20 10:29] LABS: POTASSIUM - SERUM 4.6 mmol/L (3.5-5.1)
[2019-07-20 10:31] LABS: INR 1.01 (0.85-1.17); PROTIME 12.8 SECONDS (11.6-15.0)
[2019-07-20 10:46] LABS: ALBUMIN 3.5 g/dL (3.4-5.0); ALKALINE PHOSPHATASE 81 U/L (46-116); ALT (SGPT) 31 U/L (10-68); BILIRUBIN - TOTAL 0.77 mg/dL (0.2-1.3); CKMB 0.4 U/L (0.0-3.6); CREATINE KINASE 124 UL (21-232); PRO BNP 78 pg/mL (0-125); PROTEIN - SERUM 7.3 g/dL (6.4-8.2); TROPONIN-I < 0.017 ng/mL (0.000-0.060)
[2019-07-20 12:34] LABS: APPEARANCE CLEAR (CLEAR); BILIRUBIN NEGATIVE (NEGATIVE); COLOR YELLOW (YELLOW); GLUCOSE NEGATIVE (NEGATIVE); KETONE NEGATIVE (NEGATIVE); NITRITE NEGATIVE (NEGATIVE); PROTEIN NEGATIVE (NEGATIVE); SPECIFIC GRAVITY 1.015 (1.005-1.020); UROBILINOGEN NORMAL (NORMAL)
[2019-07-20] MEDS ORDERED: EFFEXOR XR37.5 MG PO (13:13)
[2019-07-20] MEDS ORDERED: VISTARIL25 MG PO (13:13)
[2019-07-20 13:38] VITALS: BP 138/74
== END 2019-07-20 13:39 | disposition home or self-care (01) ==
LOC: D.ER 09:53
PROVIDERS: Emergency Medicine
DX: F41.9 Anxiety disorder, unspecified (principal); J44.9 Chronic obstructive pulmonary disease, unspecified; I10 Essential (primary) hypertension

== ENCOUNTER 2019-10-03 16:47 | Inpatient (IN) | payer MEDICARE ==
[~2019-10-03] VITALS: Ht 188 cm; Wt 113.4 kg
--- NOTE | ~2019-10-03 | EC ---
PATIENT:CHAZ HUGGINS DATE OF SERVICE: 10/03/19 SEX: M MEDICAL RECORD: [id number] DATE OF : [birth year] LOCATION:D.MS Garcia AGE OF PATIENT: 69 ADMISSION DATE: 10/03/19 REFERRING PHYSICIAN: INTERPRETING PHYSICIAN: CLEMENTINA LY MD ECHOCARDIOGRAM REPORT ECHO CHARGES 4 ECHO COMPLETE Date: 10/14/19 CLINICAL DIAGNOSIS: CARDIAC ARRHYTHMIA ECHOCARDIOGRAPHIC MEASUREMENTS (adult normal given) AC root (d.<3.7cm) 3.6 cm LV Septum d (<1.2 cm> 1.5 cm Valve Excursion 2.0 cm LV Septum (systole) 2.3 cm Left Atria (s.<4.0cm> 5.2 cm LVPW d(<1.2cm) 1.2 cm RV (d.<2.3cm) 2.7 cm LVPW (sytole) 1.8 cm LV diastole(<5.6CM) 5.5 cm MV E-F(>70mm/sec) cm LV systole 3.5 cm LVOT Diameter 2.4 cm MV exc.(>10mm) cm Est.ejection fraction (50-75%) % DOPPLER: LVIT cm/sec A 39.0 cm/sec E 67.0 cm/sec LA cm/sec RVSP 26.0 mmHg LVOT 120 cm/sec AOP1/2T m/s Asc. Ao 122 cm/sec RVOT 75.0 cm/sec RA cm/sec PA 104 cm/sec AV Gradient Peak 6.0 mmHg AV Mean 3.6 mmHg AV Area 4.6 cm MV Gradient Peak 3.8 mmHg MV Mean 1.2 mmHg MV Area cm COMMENTS: Service Assistant: Darling WATERSOE Health And Safety Inspector: 4 Dr. Ly TAPE# PACS Pericardial Effusion N DATE OF SERVICE: 10/14/2019 PROCEDURE: Echocardiogram. FINDINGS: LEFT VENTRICLES: Normal size, normal function with an ejection fraction of 55%. There were a couple of pauses during the interrogation. The patient has [id number] left ventricular hypertrophy. LEFT ATRIUM: Markedly dilated at 5.2 cm. AORTIC VALVE: Appears to be normal. ECHOCARDIOGRAM REPORT [id number] CHAZ HUGGINS MITRAL VALVE: Structurally normal with trace mitral regurgitation. TRICUSPID VALVE: Has trace tricuspid regurgitation with normal right ventricular systolic pressures. PERICARDIUM: Normal. RIGHT VENTRICLES: Normal size and function. RIGHT ATRIUM: Mild to moderately dilated. PULMONIC VALVE: Normal. There is no pericardial effusion. IMPRESSION: The patient has evidence of hypertensive heart disease. The patient has left ventricular hypertrophy. The patient has dilated left and right atrium. The patient appears to have sinus rhythm, but is having pauses occasionally on interrogation. TRANSINT:[id number] Voice Confirmation ID: [id number] DOCUMENT ID: [id number] CLEMENTINA LY MD CC: [id number] DICTATION DATE: 10/15/19 1126 MERCHANT MILL UTILITY WORKER: 10/16/19 0805 DIS IN 10/14/19 [place] [id number] [place] [id number]
[~2019-10-03 16:47] MED LIST changes: +EFFEXOR XR37.5 MG PO; +VISTARIL25 MG PO
[2019-10-03 17:33] LABS: BASOPHILS 0 % (0-2); EOSINOPHILS 0 % (0-7); HEMATOCRIT 31.1 % (42.0-54.0); HEMOGLOBIN 10.6 g/dL (13.5-17.5); IMMATURE GRANULOCYTES 0.4 % (0-5); MCH 31.8 pg (26.0-34.0); MCHC 34.1 g/dL (31.0-37.0); MCV 93.4 fL (80.0-100.0); MEAN PLATELET VOLUME 9.1 fL (7.4-10.4); MONOCYTES 5.1 % (2-11); NEUTROPHILS 83.5 % (40-80); RBC 3.33 10x6/uL (4.20-6.10); RDW 12.1 % (11.5-14.5)
[2019-10-03 17:35] LABS: PLATELET COUNT 231 10x3/uL (130-400)
--- NOTE | 2019-10-03 17:56 | NUR ---
FLU AND STREP COLLECTED SENT TO LAB
[2019-10-03 17:57] LABS: APTT 25.4 SECONDS (22.8-39.4); INR 1.13 (0.85-1.17); PROTIME 14.4 SECONDS (11.6-15.0)
[2019-10-03 18:26] LABS: CALC OSMOLALITY 273 mosm/kg (275-300); CALCIUM 8.4 mg/dL (8.5-10.1); CARBON DIOXIDE 25.3 mmol/L (21.0-32.0); CHLORIDE - SERUM 101 mmol/L (98-107); GLUCOSE 92 mg/dL (74-106); POTASSIUM - SERUM 3.7 mmol/L (3.5-5.1); SODIUM 136 mmol/L (136-145); UREA NITROGEN 18 mg/dL (7-18); eGFR NON AFRICAN AMERICAN 78 mL/min (90-120)
[2019-10-03 18:30] VITALS: BP 133/87
[2019-10-03 18:35] LABS: ALKALINE PHOSPHATASE 42 U/L (30-120); ALT (SGPT) 67 U/L (10-68); BILIRUBIN - TOTAL 0.74 mg/dL (0.2-1.3); PROTEIN - SERUM 6.4 g/dL (6.4-8.2); TROPONIN-I < 0.017 ng/mL (0.000-0.060)
--- NOTE | 2019-10-03 18:38 | NUR ---
URINE SPECIMEN COLLECTED, LABELED AT BS AND SENT TO LAB
[2019-10-03 19:01] LABS: BILIRUBIN NEGATIVE (NEGATIVE); GLUCOSE NEGATIVE (NEGATIVE); KETONE SMALL mg/dL (NEGATIVE); NITRITE NEGATIVE (NEGATIVE); SPECIFIC GRAVITY 1.015 (1.005-1.020); UROBILINOGEN NORMAL (NORMAL)
--- NOTE | 2019-10-03 19:17 | NUR ---
REPORT TO ARIANNE ECHEVERRIA
[2019-10-03 19:24] VITALS: BP 134/95
[2019-10-03 20:00] VITALS: BP 148/88
--- NOTE | 2019-10-03 20:02 | NUR ---
PATIENT WITH CHRONIC BACK PAIN 04/27. A OX3. TRANSPORTED VIA STRETCHER TO MED SURG. NO DISTRESS NOTED
[2019-10-03] MEDS ORDERED: XANAX0.5 MG PO (20:17)
[2019-10-03] MEDS ORDERED: COZAAR50 MG PO (20:18)
[2019-10-03] MEDS ORDERED: ZANAFLEX4 MG PO (20:21)
[2019-10-03] MEDS ORDERED: LYRICA150 MG PO (20:23)
[2019-10-03] MEDS ORDERED: STERAPRED DS 1210 MG PO (20:31)
[2019-10-03] MEDS ORDERED: MUCINEX600 MG PO (20:35)
[2019-10-03] MEDS ORDERED: MAGIC MOUTHWASH PO (20:41)
[2019-10-03] MEDS ORDERED: GENTIAN VIOLET PO (20:44)
[2019-10-03] MEDS ORDERED: DULERA 200 MCG8.8 GM INH (20:48)
[2019-10-04 01:30] VITALS: BP 148/88; BMI 32.1
--- NOTE | 2019-10-04 01:56 | NUR ---
REFUSED FULL BODY AUDIT ASSISMENT DONE WITH WHAT WAS SEEN MOVING PT. AND GIVING MEDS AYE NO SKID SOCKS. AND CHART
[2019-10-04 04:00] VITALS: BP 112/65
--- NOTE | 2019-10-04 05:43 | NUR ---
REFUSED AM LABS.
[2019-10-04 08:54] VITALS: BP 96/75
[2019-10-04 09:11] VITALS: BMI 32.1
--- NOTE | 2019-10-04 09:22 | NUR ---
HE IS ASKING FOR PAIN MEDS, WANTS HIS DIET INCREASED. VOIDING IN THE URINAL. WAINTING TO SEE THE DOCTOR.
[2019-10-04 10:13] LABS: BASOPHILS 0.1 % (0-2); EOSINOPHILS 0.3 % (0-7); HEMATOCRIT 30.6 % (42.0-54.0); HEMOGLOBIN 10.2 g/dL (13.5-17.5); IMMATURE GRANULOCYTES 0.3 % (0-5); MCH 31.5 pg (26.0-34.0); MCHC 33.3 g/dL (31.0-37.0); MCV 94.4 fL (80.0-100.0); MEAN PLATELET VOLUME 9.1 fL (7.4-10.4); MONOCYTES 4.5 % (2-11); NEUTROPHILS 80.8 % (40-80); RBC 3.24 10x6/uL (4.20-6.10); RDW 12.6 % (11.5-14.5); WBC 15.6 10x3/uL (4.8-10.8)
[2019-10-04 10:17] LABS: ALBUMIN 2.6 g/dL (3.4-5.0); ALKALINE PHOSPHATASE 41 U/L (30-120); ALT (SGPT) 51 U/L (10-68); BILIRUBIN - TOTAL 0.98 mg/dL (0.2-1.3); CALC OSMOLALITY 273 mosm/kg (275-300); CARBON DIOXIDE 27.4 mmol/L (21.0-32.0); CHLORIDE - SERUM 102 mmol/L (98-107); GLUCOSE 84 mg/dL (74-106); MAGNESIUM - SERUM 2.1 mg/dL (1.8-2.4); PHOSPHOROUS 2.9 mg/dL (2.5-4.9); POTASSIUM - SERUM 3.7 mmol/L (3.5-5.1); PRO BNP 3753 pg/mL (0-125); PROTEIN - SERUM 5.9 g/dL (6.4-8.2); SODIUM 137 mmol/L (136-145); UREA NITROGEN 14 mg/dL (7-18); eGFR NON AFRICAN AMERICAN 78 mL/min (90-120)
[2019-10-04 10:19] LABS: PLATELET COUNT 304 10x3/uL (130-400)
--- NOTE | 2019-10-04 11:40 | NUR ---
THE FIELD ARTILLERY FIRE CONTROL MAN CALLED THE PATIENT CONVERTED TO SR WITH A RATE OF 89. HE IS WANTING MORE OF HIS HOME MEDICATIONS RESTARTED.
[2019-10-04 12:32] VITALS: BP 137/56
--- NOTE | 2019-10-04 14:25 | MORECARE ---
CASE MANAGEMENT DISCHARGE SUMMARY PATIENT: CHAZ HUGGINS UNIT: [id number] ADM DATE: 10/03/19 AGE: 69 : [birth year] SEX: M ROOM/BED: D.2206 AUTHOR: DIOMEDES ANDRADE PHYSICIAN: REFERRING PHYSICIAN: RICHY PIPER MD DATE OF SERVICE: 10/04/19 Discharge Plan Patient Name: CHAZ HUGGINS [facility] [facility] 1950 Planned Disposition: Long-Term Facility Anticipated Discharge Date: Discharge Date: Expected LOS: Initial Reviewer: [email or web address] Initial Review Date: 10/03/2019 Generated: 10/04/19 3:24 pm Comments DCP- Discharge Planning Updated by [email or web address]: Fidelina Fisher on 10/04/19 1:[address] REFERRAL SENT TO THE [facility], HE IS CURRENT WITH [facility] WILL NEED TO SEND ALL EVALS WHEN THEY ARE COMPLETED External Providers External Provider: [facility] and [facility] Next Contact Date: Service Request Date: Service Type: Resolution: Reviewer: Comments: Patient Name: CHAZ HUGGINS Page [phone] at 1425 All edits/amendments must be made on the electronic document DICTATION DATE: 10/04/191423 BOILER TESTING TECHNICIAN: JACK 10/04/19 142 RPT#: [id number] DC DATE: STATUS: ADM IN [facility] [address] [place] [address] END OF REPORT
[2019-10-04 16:44] VITALS: BP 98/72
[2019-10-04 20:43] VITALS: BP 94/58
--- NOTE | 2019-10-04 21:43 | MORECARE ---
CASE MANAGEMENT DISCHARGE SUMMARY PATIENT: CHAZ HUGGINS UNIT: [id number] ADM DATE: 10/03/19 AGE: 69 : [birth year] SEX: M ROOM/BED: D.2206 AUTHOR: DIOMEDES ANDRADE PHYSICIAN: REFERRING PHYSICIAN: RICHY PIPER MD DATE OF SERVICE: 10/04/19 Discharge Plan Patient Name: CHAZ HUGGINS [facility] [facility] 1950 Planned Disposition: Long-Term Facility Anticipated Discharge Date: Discharge Date: Expected LOS: Initial Reviewer: [email or web address] Initial Review Date: 10/03/2019 Generated: 10/04/19 10:42 pm DCP- Discharge Planning Updated by [email or web address]: Fidelina Fisher on 10/04/19 1:[address] REFERRAL SENT TO [facility], HE IS CURRENT WITH [facility] WILL NEED TO SEND ALL EVALS WHEN THEY ARE COMPLETED Last DP export: 10/04/19 1:25 p Patient Name: CHAZ HUGGINS Page [phone] at 2143 All edits/amendments must be made on the electronic document DICTATION DATE: 10/04/192141 CROZER: JACK 10/04/192141 RPT#: [id number] DC DATE: STATUS: ADM IN [facility] [address] [place] [address] END OF REPORT
--- NOTE | 2019-10-04 21:55 | MORECARE ---
CASE MANAGEMENT DISCHARGE SUMMARY PATIENT: CHAZ HUGGINS UNIT: [id number] ADM DATE: 10/03/19 AGE: 69 : [birth year] SEX: M ROOM/BED: D.2206 AUTHOR: DIOMEDES ANDRADE PHYSICIAN: REFERRING PHYSICIAN: RICHY PIPER MD DATE OF SERVICE: 10/04/19 Discharge Plan Patient Name: CHAZ HUGGINS [facility] [facility] 1950 Planned Disposition: Group Home Facility Anticipated Discharge Date: Discharge Date: Expected LOS: Initial Reviewer: [email or web address] Initial Review Date: 10/03/2019 Generated: 10/04/19 10:55 pm DCP- Discharge Planning Updated by [email or web address]: Fidelina Fisher on 10/04/19 1:[address] REFERRAL SENT TO THE [facility], HE IS CURRENT WITH [facility] WILL NEED TO SEND ALL EVALS WHEN THEY ARE COMPLETED DCPIA - Discharge Planning Initial Assessment Updated by [email or web address]: Hermila Leon on 10/04/19 9:54 pm * Is the patient Alert and Oriented? Yes * PCP MARGIE LOPEZ * Pharmacy [facility] * Preadmission Environment Home Alone * ADLs Total Dependent * List name and contact numbers for known caregivers / representatives who currently or will assist patient after discharge: CARRIE STODDARD - [phone] * Verbal permission to speak to the caregivers and representatives has been obtained from the patient. N/A * Community resources currently utilized Home Health * Please name any agencies selected above. [facility] * Additional services required to return to the preadmission environment? No * Can the patient safely return to the preadmission environment? Yes * Has this patient been hospitalized within the prior 30 days at any hospital? Yes Last DP export: 10/04/19 8:42 p Patient Name: CHAZ HUGGINS Page [phone] at 2154 All edits/amendments must be made on the electronic document DICTATION DATE: 10/04/192154 CENTRAL OFFICE REPAIRER: JACK 10/04/192154 RPT#: [id number] DC DATE: STATUS: ADM IN [facility] [address] [place] [address] END OF REPORT
--- NOTE | 2019-10-04 22:20 | MORECARE ---
CASE MANAGEMENT DISCHARGE SUMMARY PATIENT: CHAZ HUGGINS UNIT: [id number] ADM DATE: 10/03/19 AGE: 69 : 49 SEX: M ROOM/BED: D.2206 AUTHOR: LUPE,DOC PHYSICIAN: REFERRING PHYSICIAN: RICHY PIPER MD DATE OF SERVICE: 10/04/19 Discharge Plan Patient Name: CHAZ HUGGINS Facility: [facility]:[place] : 1950 Planned Disposition: Care Home Facility Anticipated Discharge Date: Discharge Date: Expected LOS: Initial Reviewer: [id number] Initial Review Date: 10/03/2019 Generated: 10/04/19 11:20 pm Comments DCP- Discharge Planning Updated by [id number]: Hermila Leon on 10/04/19 9:[address] Patient Name: CHAZ HUGGINS Admission Status: ER Accout number: [id number] Admission Date: 10-03-2019 : 1950 Admission Diagnosis: Attending: RICHY PIPER Current LOS: 1 Anticipated DC Date: Planned Disposition: Care Home Facility Primary Insurance: [facility] MEDICARE SOLUTIONS Discharge Planning Comments: CM met with patient after obtaining verbal consent. CM met with patient while in ER. His story was somewhat confusing at the time but after speaking with Ya Yates RN [phone]. CM understands a better. Patient lives home alone and was fully independent prior to his last hospitalization at [facility] in . He states he was discharged 09/30/19 after a month long stay with pneumonia. He states that he was on TPN while he was there because he is unable to eat d/t thrush in his mouth. He states that he is very weak and immobile. He states that he is unable to care for himself and his two caregivers have quit/ fired d/t stealing. [place] [facility] has been out to see him since d/c and the patient yesterday through himself out of the chair and crawled to door. Then refused to come to ER when ambulance arrived to get him up out of floor. Ya stated that she was planning on getting patient into [facility] but then he finally agreed to come to ER for evaluation. Patient gave verbal consent for [facility] for SNF Rehab. Patient admits that he is unable to care for himself at this time. CM will ask physician about OT, PT, and ST eval for placement. CM will continue to follow and assist as needed with discharge planning / needs. Therapist Rrt: Hermila Leon DCP- Discharge Planning Updated by [id number]: Fidelina Fisher on 10/04/19 1:[address] [facility]FERRAL SENT TO [facility], HE IS CURRENT WITH [facility] WILL NEED TO SEND ALL EVALS WHEN THEY ARE COMPLETED DCPIA - Discharge Planning Initial Assessment Updated by [id number]: Hermila Leon on 10/04/19 9:54 pm * Is the patient Alert and Oriented? Yes * PCP MARGIE LOPEZ * Pharmacy [facility] * Preadmission Environment Home Alone * ADLs Total Dependent * List name and contact numbers for known caregivers / representatives who currently or will assist patient after discharge: CARRIE STODDARD - [phone] * Verbal permission to speak to the caregivers and representatives has been obtained from the patient. N/A * Community resources currently utilized Home Health * Please name any agencies selected above. [facility] * Additional services required to return to the preadmission environment? No * Can the patient safely return to the preadmission environment? Yes * Has this patient been hospitalized within the prior 30 days at any hospital? Yes Coverage Notice Reviewer: [id number] - Hermila Leon Notice Issued Date-Time: 10/03/2019 19:30 Notice Type: Patient Choice Letter Notice Delivered To: Patient Relationship to Patient: Self Care Assistant Name: Delivery Method: HAND - Hand Delivered Yolanda Days: Prior Verbal Notification: Yes Recipient Understood Notice: Yes Recipient Signature: Yes Med Rec Note Co-signed by Attending: Coverage Notice Comment: [facility] Last DP export: 10/04/19 8:55 p Patient Name: CHAZ HUGGINS Page [id number] at 2220 All edits/amendments must be made on the electronic document DICTATION DATE: 10/04/192219 HORTICULTURAL SPECIALTY GROWER: JACK 10/04/192219 RPT#: [id number] DC DATE: STATUS: ADM IN [facility] [address] [id number] END OF REPORT
[2019-10-05 00:20] VITALS: BP 93/50
--- NOTE | 2019-10-05 03:49 | NUR ---
RESTING IN BED WITH NO NEEDS NOTED OR STATED CALL LIGHT IN REACH BED LOW. IV IN PLACE AND PATEN WITH NS AT 50 ML /HR. TELEMERTY IN PLACE 83 SR. NO S/S OF DISTRESS NO STATED NEEDS AT THIS TIME.
[2019-10-05 08:11] LABS: BASOPHILS 0 % (0-2); EOSINOPHILS 1.3 % (0-7); IMMATURE GRANULOCYTES 0.2 % (0-5); LYMPHOCYTES 17.5 % (15-50); MCH 31.9 pg (26.0-34.0); MCHC 33.6 g/dL (31.0-37.0); MCV 94.8 fL (80.0-100.0); MEAN PLATELET VOLUME 8.7 fL (7.4-10.4); MONOCYTES 3.9 % (2-11); NEUTROPHILS 77.1 % (40-80); RDW 13.1 % (11.5-14.5)
[2019-10-05 08:18] LABS: ANION GAP 6.8 mmol/L (8-16); BILIRUBIN - TOTAL 0.85 mg/dL (0.2-1.3); CALCIUM 7.4 mg/dL (8.5-10.1); CARBON DIOXIDE 29.5 mmol/L (21.0-32.0); CREATININE - SERUM 1.1 mg/dL (0.6-1.3); MAGNESIUM - SERUM 2.1 mg/dL (1.8-2.4); PHOSPHOROUS 3.3 mg/dL (2.5-4.9); POTASSIUM - SERUM 3.3 mmol/L (3.5-5.1); PROTEIN - SERUM 4.8 g/dL (6.4-8.2)
[2019-10-05 08:40] LABS: HEMATOCRIT 23.8 % (42.0-54.0); PLATELET COUNT 194 10x3/uL (130-400); RBC 2.51 10x6/uL (4.20-6.10); WBC 8.3 10x3/uL (4.8-10.8)
[2019-10-05 08:58] VITALS: BP 96/51
--- NOTE | 2019-10-05 09:12 | NUR ---
HE IS SLEEPY THIS MORNING. IV OUT, SEVERAL ATTEMPTS TO START A NEW ONE. VASCULAR ASSESS TEAM CALLED.
[2019-10-05 12:26] VITALS: BP 103/58
--- NOTE | 2019-10-05 13:19 | MORECARE ---
CASE MANAGEMENT DISCHARGE SUMMARY PATIENT: CHAZ HUGGINS UNIT: [id number] ADM DATE: 10/03/19 AGE: 69 : 49 SEX: M ROOM/BED: D.2206 AUTHOR: LUPE,DOC PHYSICIAN: REFERRING PHYSICIAN: RICHY PIPER MD DATE OF SERVICE: 10/05/19 Discharge Plan Patient Name: CHAZ HUGGINS Facility: [facility]:[place] : 1950 Planned Disposition: Jail Facility Anticipated Discharge Date: Discharge Date: Expected LOS: Initial Reviewer: [id number] Initial Review Date: 10/03/2019 Generated: 10/05/19 2:18 pm Comments DCP- Discharge Planning Updated by [id number]: Maria R Marinelli on 10/05/19 12:[address] DC PLAN: Refusing Snf- Wants to return home with resume [facility]. ELENA Signed for [facility] - placed in patients chart. DC IMM Notification given and signed, placed in chart. CM met with patient to complete ALFRED. After completion of the ALFRED the patient stated he is refusing to go to a SNF. He stated he is going to work hard with PT and go home. CM reviewed PT eval which stated they had to encourage the patient to participate. With patient's permission CM went ahead and faxed the ALFRED just in case he needs rehab. He currently has HH services with [facility]. CM encouraged the patient to work with PT to ensure he is safe to dc to his home. He stated he is going to work with therapy because he does not want to go to the longterm. Maria R Marinelli RN, [facility] DCP- Discharge Planning Updated by [email or web address]: Hermial Leon on 10/04/19 9:[address] Patient Name: CHAZ HUGGINS Admission Status: ER Accout number: [id number] Admission Date: 10-03-2019 : 1950 Admission Diagnosis: Attending: RICHY PIPER Current LOS: 1 Anticipated DC Date: Planned Disposition: Jail Facility Primary Insurance: [facility] MEDICARE SOLUTIONS Discharge Planning Comments: CM met with patient after obtaining verbal consent. CM met with patient while in ER. His story was somewhat confusing at the time but after speaking with Ya Yates RN [phone]. CM understands a better. Patient lives home alone and was fully independent prior to his last hospitalization at [facility] in . He states he was discharged 09/30/19 after a month long stay with pneumonia. He states that he was on TPN while he was there because he is unable to eat d/t thrush in his mouth. He states that he is very weak and immobile. He states that he is unable to care for himself and his two caregivers have quit/ fired d/t stealing. [facility] has been out to see him since d/c and the patient yesterday through himself out of the chair and crawled to door. Then refused to come to ER when ambulance arrived to get him up out of floor. Ya stated that she was planning on getting patient into [facility] but then he finally agreed to come to ER for evaluation. Patient gave verbal consent for [facility] for SNF Rehab. Patient admits that he is unable to care for himself at this time. CM will ask physician about OT, PT, and ST eval for placement. CM will continue to follow and assist as needed with discharge planning / needs. Architecture Faculty Member: Hermila Leon DCP- Discharge Planning Updated by [id number]: Fidelina Fisher on 10/04/19 1:[address] REFERRAL SENT TO [facility] HE IS CURRENT WITH [facility] WILL NEED TO SEND ALL EVALS WHEN THEY ARE COMPLETED DCPIA - Discharge Planning Initial Assessment Updated by [email or web address]: Hermila Leon on 10/04/19 9:54 pm * Is the patient Alert and Oriented? Yes * PCP MARGIE MADISON - JESSICA * Pharmacy [facility] * Preadmission Environment Home Alone * ADLs Total Dependent * List name and contact numbers for known caregivers / representatives who currently or will assist patient after discharge: CARRIE ARLYN - [phone] * Verbal permission to speak to the caregivers and representatives has been obtained from the patient. N/A * Community resources currently utilized Home Health * Please name any agencies selected above. [facility] * Additional services required to return to the preadmission environment? No * Can the patient safely return to the preadmission environment? Yes * Has this patient been hospitalized within the prior 30 days at any hospital? Yes Coverage Notice Reviewer: [id number] - Hermila Leon Notice Issued Date-Time: 10/03/2019 19:30 Notice Type: Patient Choice Letter Notice Delivered To: Patient Relationship to Patient: Self Dba Name: Delivery Method: HAND - Hand Delivered Yolanda Days: Prior Verbal Notification: Yes Recipient Understood Notice: Yes Recipient Signature: Yes Med Rec Note Co-signed by Attending: Coverage Notice Comment: [facility] Last DP export: 10/04/19 9:20 p Patient Name: CHAZ HUGGINS Page [id number] at 1319 All edits/amendments must be made on the electronic document DICTATION DATE: 10/05/191317 CAGE TENDER: JACK 10/05/198 RPT#: [id number] DC DATE: STATUS: ADM IN [facility] [address] [place] [address] END OF REPORT
--- NOTE | 2019-10-05 15:59 | MORECARE ---
CASE MANAGEMENT DISCHARGE SUMMARY PATIENT: CHAZ HUGGINS UNIT: [id number] ADM DATE: 10/03/19 AGE: 69 : 49 SEX: M ROOM/BED: D.2206 AUTHOR: LUPEDOC PHYSICIAN: REFERRING PHYSICIAN: RICHY PIPER MD DATE OF SERVICE: 10/05/19 Discharge Plan Patient Name: CHAZ HUGGINS Facility: [facility]:[place] : 1950 Planned Disposition: Longterm Facility Anticipated Discharge Date: Discharge Date: Expected LOS: Initial Reviewer: [id number] Initial Review Date: 10/03/2019 Generated: 10/05/19 4:59 pm Comments DCP- Discharge Planning Updated by [email or web address]: Maria R Marinelli on 10/05/19 2:[address] DC PLAN: Pending to the [facility] has been returned and he has been approved for 30 days. CM faxed ALFRED to the [facility] along with PT/OT/ST. Maria R Marinelli RN, CC DCP- Discharge Planning Updated by [id number]: Maria R Marinelli on 10/05/19 12:[address] DC PLAN: Refusing Snf- Wants to return home with resume [facility]. ELENA Signed for [facility] - placed in patients chart. DC IMM Notification given and signed, placed in chart. CM met with patient to complete ALFRED. After completion of the ALFRED the patient stated he is refusing to go to a SNF. He stated he is going to work hard with PT and go home. CM reviewed PT eval which stated they had to encourage the patient to participate. With patient's permission CM went ahead and faxed the ALFRED just in case he needs rehab. He currently has HH services with [facility]. CM encouraged the patient to work with PT to ensure he is safe to dc to his home. He stated he is going to work with therapy because he does not want to go to the long term. Maria R Marinelli RN, CCM DCP- Discharge Planning Updated by [id number]: Hermila Leon on 10/04/19 9:[address] Patient Name: CHAZ HUGGINS Admission Status: ER Accout number: [id number] Admission Date: 10-03-2019 : 1950 Admission Diagnosis: Attending: RICHY PIPER Current LOS: 1 Anticipated DC Date: Planned Disposition: Longterm Facility Primary Insurance: [facility] MEDICARE SOLUTIONS Discharge Planning Comments: CM met with patient after obtaining verbal consent. CM met with patient while in ER. His story was somewhat confusing at the time but after speaking with Ya Yates RN [phone]. CM understands a better. Patient lives home alone and was fully independent prior to his last hospitalization at [facility] in . He states he was discharged 09/30/19 after a month long stay with pneumonia. He states that he was on TPN while he was there because he is unable to eat d/t thrush in his mouth. He states that he is very weak and immobile. He states that he is unable to care for himself and his two caregivers have quit/ fired d/t stealing. [facility] has been out to see him since d/c and the patient yesterday through himself out of the chair and crawled to door. Then refused to come to ER when ambulance arrived to get him up out of floor. Ya stated that she was planning on getting patient into [facility] but then he finally agreed to come to ER for evaluation. Patient gave verbal consent for [facility] for SNF Rehab. Patient admits that he is unable to care for himself at this time. CM will ask physician about OT, PT, and ST eval for placement. CM will continue to follow and assist as needed with discharge planning / needs. Tank Welder: Hermila Leon DCP- Discharge Planning Updated by [id number]: Fidelina Fisher on 10/04/19 1:[address] [facility]FERRAL SENT TO [facility], HE IS CURRENT WITH [facility] WILL NEED TO SEND ALL EVALS WHEN THEY ARE COMPLETED DCPIA - Discharge Planning Initial Assessment Updated by [id number]: Hermila Leon on 10/04/19 9:54 pm * Is the patient Alert and Oriented? Yes * PCP MARGIE LOPEZ * Pharmacy [facility] * Preadmission Environment Home Alone * ADLs Total Dependent * List name and contact numbers for known caregivers / representatives who currently or will assist patient after discharge: CARRIE STODDARD - [phone] * Verbal permission to speak to the caregivers and representatives has been obtained from the patient. N/A * Community resources currently utilized Home Health * Please name any agencies selected above. [facility] * Additional services required to return to the preadmission environment? No * Can the patient safely return to the preadmission environment? Yes * Has this patient been hospitalized within the prior 30 days at any hospital? Yes Coverage Notice Reviewer: [id number] Paloma Leon Notice Issued Date-Time: 10/03/2019 19:30 Notice Type: Patient Choice Letter Notice Delivered To: Patient Relationship to Patient: Self Computer Systems Technology Instructor Name: Delivery Method: HAND - Hand Delivered Yolanda Days: Prior Verbal Notification: Yes Recipient Understood Notice: Yes Recipient Signature: Yes Med Rec Note Co-signed by Attending: Coverage Notice Comment: ROBIN MEDLEY Reviewer: [id number] Paloma Marinelli Notice Issued Date-Time: 10/05/2019 13:32 Notice Type: Patient Choice Letter Notice Delivered To: Patient Relationship to Patient: Computer Systems Technology Instructor Name: Delivery Method: - Yolanda Days: Prior Verbal Notification: Recipient Understood Notice: Yes Recipient Signature: Yes Med Rec Note Co-signed by Attending: Coverage Notice Comment: hammad Reviewer: [id number] - Maria R Marinelli Notice Issued Date-Time: 10/05/2019 13:32 Notice Type: IM Discharge Notice Notice Delivered To: Patient Relationship to Patient: Computer Systems Technology Instructor Name: Delivery Method: - Yolanda Days: Prior Verbal Notification: Recipient Understood Notice: Yes Recipient Signature: Yes Med Rec Note Co-signed by Attending: Coverage Notice Comment: dc imm signed and put in chart. Last DP export: 10/05/19 12:19 p Patient Name: CHAZ HUGGINS Page [phone] at 1559 All edits/amendments must be made on the electronic document DICTATION DATE: 10/05/19 155 HOSPICE EXECUTIVE DIRECTOR: JACK 10/05/19 1553 RPT#: [id number] DC DATE: STATUS: ADM IN [facility] [address] [place] [address] END OF REPORT
[2019-10-05 17:15] VITALS: BP 99/51
[2019-10-05 20:00] VITALS: BP 128/64
--- NOTE | 2019-10-05 20:31 | NUR ---
REC'D. WALKING ROUNDS CHGE OF SHIFT. IN BED WATCHING NEWS ON TV.DENIES ANY PAIN STATES JUST STILL VERY WEAK.WILL CONTINUE TO MONITOR FOR ANY CHGES AND FOLLOW CURRENT PLAN OF CARE
[2019-10-06] VITALS: BP 80/48
--- NOTE | 2019-10-06 03:41 | NUR ---
I have reviewed this patient and I concur with the Shift Assessment completed by the Licensed Practical Nurse today this shift.
[2019-10-06 04:00] VITALS: BP 80/45
[2019-10-06 07:21] LABS: % SATURATION 8 % (15-55); IRON 10 ug/dl (35-150); TOTAL IRON BIND CAPACITY 112 ug/dl (260-445); UNSAT IRON BIND CAPACITY 102 ug/dl (150-375)
[2019-10-06 07:30] LABS: ANION GAP 10.5 mmol/L (8-16); BILIRUBIN - TOTAL 0.95 mg/dL (0.2-1.3); CALCIUM 7.4 mg/dL (8.5-10.1); CARBON DIOXIDE 27.9 mmol/L (21.0-32.0); CREATININE - SERUM 1.3 mg/dL (0.6-1.3); MAGNESIUM - SERUM 2.1 mg/dL (1.8-2.4); POTASSIUM - SERUM 3.4 mmol/L (3.5-5.1); PROTEIN - SERUM 4.7 g/dL (6.4-8.2)
[2019-10-06 08:27] LABS: BASOPHILS 1.2 % (0-2); EOSINOPHILS 0.1 % (0-7); HEMATOCRIT 25.5 % (42.0-54.0); HEMOGLOBIN 8.6 g/dL (13.5-17.5); IMMATURE GRANULOCYTES 0.7 % (0-5); LYMPHOCYTES 11.9 % (15-50); MCH 32.6 pg (26.0-34.0); MCHC 33.7 g/dL (31.0-37.0); MCV 96.6 fL (80.0-100.0); MEAN PLATELET VOLUME 9.6 fL (7.4-10.4); MONOCYTES 3.8 % (2-11); NEUTROPHILS 82.3 % (40-80); PLATELET COUNT 227 10x3/uL (130-400); RBC 2.64 10x6/uL (4.20-6.10); RDW 13.4 % (11.5-14.5); WBC 7.5 10x3/uL (4.8-10.8)
--- NOTE | 2019-10-06 09:00 | NUR ---
ALERT AND ORIENTED X4. LUNGS CTA AND HRRR. TRACE EDEMA NOTED TO BLE. STATES DIDN'T SLEEP WELL LAST NIGHT AND HAD MUSCLE RELAXER. REQUESTING TO SLLEEP SOME PRIOR TO THERAPY. DENIES ANY PAIN OR DISCOMFORT. DISCUSSED BLOOD PRESSURE MEDICATIONS AND EFFECT. PATIENT STATEES FEELS GOOD TAKEING BY ITSELF. ENCOURAGED TO USE CALL LIGHT FOR ASSIST. DENIES ANY VERTIGO UPON STANDING.
[2019-10-06 09:39] VITALS: BP 98/51
--- NOTE | 2019-10-06 09:51 | NUR ---
NUTRITION F/U SPEECH THERAPY NOTE REVIEWED. PT CURRENTLY TOLERATING REG MECH SOFT DIET WITH 100% INTAKE RECENT MEALS. WILL CONTINUE TO PROVIDE DIET, MONITOR PO INTAKE. RD FOLLOWING
--- NOTE | 2019-10-06 10:35 | NUR ---
OT NOTE: HOLD PER THERAPY SECONDARY TO PT REPORTING THAT HE HAD RECEIVED MUSCLE RELAXER AND PAIN MED AND FELT VERY SLEEPY. STATED THAT HE WOULD NOT FEEL SAFE UP IN THE CHAIR BUT WOULD DO WHATEVER THERAPIST SUGGESTED. WILL ALLOW HIM TO SLEEP IN AM AND RE CHECK LATER. JAMES DICK,OTR/L
[2019-10-06 12:17] VITALS: BP 92/50
--- NOTE | 2019-10-06 13:49 | MORECARE ---
CASE MANAGEMENT DISCHARGE SUMMARY PATIENT: CHAZ HUGGINS UNIT: [id number] ADM DATE: 10/03/19 AGE: 69 : 49 SEX: M ROOM/BED: D.2206 AUTHOR: LUPEDOC PHYSICIAN: REFERRING PHYSICIAN: RICHY PIPER MD DATE OF SERVICE: 10/06/19 Discharge Plan Patient Name: CHAZ HUGGINS Facility: [facility]:[place] : 1950 Planned Disposition: Usp Facility Anticipated Discharge Date: Discharge Date: Expected LOS: Initial Reviewer: [id number] Initial Review Date: 10/03/2019 Generated: 10/06/19 2:49 pm DCP- Discharge Planning Updated by [id number]: Maria R Marinelli on 10/05/19 2:[address] DC PLAN: Pending to the [facility] has been returned and he has been approved for 30 days. CM faxed ALFRED to the [facility] along with PT/OT/ST. Maria R Marinelli RN, CC DCP- Discharge Planning Updated by [id number]: Maria R Marinelli on 10/05/19 12:[address] DC PLAN: Refusing Snf- Wants to return home with resume [facility]. ELENA Signed for [facility] - placed in patients chart. DC IMM Notification given and signed, placed in chart. CM met with patient to complete ALFRED. After completion of the ALFRED the patient stated he is refusing to go to a SNF. He stated he is going to work hard with PT and go home. CM reviewed PT eval which stated they had to encourage the patient to participate. With patient's permission CM went ahead and faxed the ALFRED just in case he needs rehab. He currently has HH services with [facility]. CM encouraged the patient to work with PT to ensure he is safe to dc to his home. He stated he is going to work with therapy because he does not want to go to the half-way. Maria R Marinelli RN, CCM DCP- Discharge Planning Updated by [id number]: Hermila Leon on 10/04/19 9:[address] Patient Name: CHAZ HUGGINS Admission Status: ER Accout number: [id number] Admission Date: 10-03-2019 : 1950 Admission Diagnosis: Attending: RICHY PIPER Current LOS: 1 Anticipated DC Date: Planned Disposition: Usp Facility Primary Insurance: [facility] MEDICARE SOLUTIONS Discharge Planning Comments: CM met with patient after obtaining verbal consent. CM met with patient while in ER. His story was somewhat confusing at the time but after speaking with Ya Yates RN [phone]. CM understands a better. Patient lives home alone and was fully independent prior to his last hospitalization at [facility] in . He states he was discharged 09/30/19 after a month long stay with pneumonia. He states that he was on TPN while he was there because he is unable to eat d/t thrush in his mouth. He states that he is very weak and immobile. He states that he is unable to care for himself and his two caregivers have quit/ fired d/t stealing. [facility] has been out to see him since d/c and the patient yesterday through himself out of the chair and crawled to door. Then refused to come to ER when ambulance arrived to get him up out of floor. Ya stated that she was planning on getting patient into [facility] but then he finally agreed to come to ER for evaluation. Patient gave verbal consent for The [facility] for SNF Rehab. Patient admits that he is unable to care for himself at this time. CM will ask physician about OT, PT, and ST eval for placement. CM will continue to follow and assist as needed with discharge planning / needs. Ice Delivery Driver: Hermila Leon DCP- Discharge Planning Updated by [id number]: Fidelina Fisher on 10/04/19 1:[address] REFERRAL SENT TO [facility], HE IS CURRENT WITH [facility] WILL NEED TO SEND ALL EVALS WHEN THEY ARE COMPLETED DCPIA - Discharge Planning Initial Assessment Updated by [id number]: Hermila Leon on 10/04/19 9:54 pm * Is the patient Alert and Oriented? Yes * PCP MARGIE LOPEZ * Pharm[facility] * Preadmission Environment Home Alone * ADLs Total Dependent * List name and contact numbers for known caregivers / representatives who currently or will assist patient after discharge: CARRIE STODDARD - [phone] * Verbal permission to speak to the caregivers and representatives has been obtained from the patient. N/A * Community resources currently utilized Home Health * Please name any agencies selected above. [facility] * Additional services required to return to the preadmission environment? No * Can the patient safely return to the preadmission environment? Yes * Has this patient been hospitalized within the prior 30 days at any hospital? Yes Coverage Notice Reviewer: [id number] Paloma Leon Notice Issued Date-Time: 10/03/2019 19:30 Notice Type: Patient Choice Letter Notice Delivered To: Patient Relationship to Patient: Self Sand Slinger Name: Delivery Method: HAND - Hand Delivered Yolanda Days: Prior Verbal Notification: Yes Recipient Understood Notice: Yes Recipient Signature: Yes Med Rec Note Co-signed by Attending: Coverage Notice Comment: ROBIN MEDLEY Reviewer: [id number] Paloma Marinelli Notice Issued Date-Time: 10/05/2019 13:32 Notice Type: Patient Choice Letter Notice Delivered To: Patient Relationship to Patient: Sand Slinger Name: Delivery Method: - Yolanda Days: Prior Verbal Notification: Recipient Understood Notice: Yes Recipient Signature: Yes Med Rec Note Co-signed by Attending: Coverage Notice Comment: hammad Reviewer: [id number] - Maria R Marinelli Notice Issued Date-Time: 10/05/2019 13:32 Notice Type: IM Discharge Notice Notice Delivered To: Patient Relationship to Patient: Sand Slinger Name: Delivery Method: - Yolanda Days: Prior Verbal Notification: Recipient Understood Notice: Yes Recipient Signature: Yes Med Rec Note Co-signed by Attending: Coverage Notice Comment: dc imm signed and put in chart. Last DP export: 10/05/19 2:59 p Patient Name: CHAZ HUGGINS Page 11051 at 1349 All edits/amendments must be made on the electronic document DICTATION DATE: 10/06/19 1349 STAFF TOXICOLOGIST: JACK 10/06/19 1349 RPT#: [id number] DC DATE: STATUS: ADM IN [facility] [address] [place] [address] END OF REPORT
--- NOTE | 2019-10-06 13:56 | NUR ---
PT REFUSED [place] BECAUSE HE WAS ON HIS CELL PHONE
--- NOTE | 2019-10-06 14:05 | MORECARE ---
CASE MANAGEMENT DISCHARGE SUMMARY PATIENT: CHAZ HUGGINS UNIT: [id number] ADM DATE: 10/03/19 AGE: 69 : 48 SEX: M ROOM/BED: D.2206 AUTHOR: LUPE,DOC PHYSICIAN: REFERRING PHYSICIAN: RICHY PIPER MD DATE OF SERVICE: 10/06/19 Discharge Plan Patient Name: CHAZ HUGGINS Facility: [facility]:[place] : 1950 Planned Disposition: [facility] Facility Anticipated Discharge Date: Discharge Date: Expected LOS: Initial Reviewer: [id number] Initial Review Date: 10/03/2019 Generated: 10/06/19 3:04 pm Comments DCP- Discharge Planning Updated by [id number]: Maria R Marinelli on 10/06/19 1:[address] REFERRAL SENT TO [facility]. CM CALLED CARE , [phone], SPOKE TO CAROL WHO STATED THEY ARE OUT OF NETWORK. CM CALLED [facility], [phone], SPOKE TO JOSE WHO STATED THEY WILL NOT ACCEPT PATIENT BACK. CM WILL FAX REFERRAL TO [facility] AND SEE IF THEY WILL ACCEPT THE PATIENT FOR ADMISSION. CM SPOKE TO KRISHAN WHO ACCEPTED THE REFERRAL.REFERRAL FAXED FAX DC INFO TO [facility]. MARIA R MARINELLI RN, CCM DCP- Discharge Planning Updated by [email or web address]: Maria R Marinelli on 10/05/19 2:[address] DC PLAN: Pending to the [facility] has been returned and he has been approved for 30 days. CM faxed ALFRED to the [facility] along with PT/OT/ST. Maria R Marinelli RN, CC DCP- Discharge Planning Updated by [email or web address]: Maria R Marinelli on 10/05/19 12:[address] DC PLAN: Refusing Snf- Wants to return home with resume [facility]. ELENA Signed for [facility] - placed in patients chart. DC IMM Notification given and signed, placed in chart. CM met with patient to complete ALFRED. After completion of the ALFRED the patient stated he is refusing to go to a SNF. He stated he is going to work hard with PT and go home. CM reviewed PT eval which stated they had to encourage the patient to participate. With patient's permission CM went ahead and faxed the ALFRED just in case he needs rehab. He currently has services with [facility]. CM encouraged the patient to work with PT to ensure he is safe to dc to his home. He stated he is going to work with therapy because he does not want to go to the shelter. Maria R Marinelli RN, [facility] DCP- Discharge Planning Updated by [id number]: Hermila Leon on 10/04/19 9:[address] Patient Name: CHAZ HUGGINS Admission Status: ER Accout number: [id number] Admission Date: 10-03-2019 : 1950 Admission Diagnosis: Attending: RICHY PIPER Current LOS: 1 Anticipated DC Date: Planned Disposition: [facility] Facility Primary Insurance: [facility] MEDICARE SOLUTIONS Discharge Planning Comments: CM met with patient after obtaining verbal consent. CM met with patient while in ER. His story was somewhat confusing at the time but after speaking with Ya Yates RN [phone]. CM understands a better. Patient lives home alone and was fully independent prior to his last hospitalization at [facility] in . He states he was discharged 09/30/19 after a month long stay with pneumonia. He states that he was on TPN while he was there because he is unable to eat d/t thrush in his mouth. He states that he is very weak and immobile. He states that he is unable to care for himself and his two caregivers have quit/ fired d/t stealing. [facility] has been out to see him since d/c and the patient yesterday through himself out of the chair and crawled to door. Then refused to come to ER when ambulance arrived to get him up out of floor. Ya stated that she was planning on getting patient into The [facility] but then he finally agreed to come to ER for evaluation. Patient gave verbal consent for [facility] for SNF Rehab. Patient admits that he is unable to care for himself at this time. CM will ask physician about OT, PT, and ST eval for placement. CM will continue to follow and assist as needed with discharge planning / needs. Electrician Underground: Hermila Leon DCP- Discharge Planning Updated by [id number]: Fidelina Fisher on 10/04/19 1:[address] [facility]FERRAL SENT TO [facility], [facility] WILL NEED TO SEND ALL EVALS WHEN THEY ARE COMPLETED DCPIA - Discharge Planning Initial Assessment Updated by [id number]: Hermila Leon on 10/04/19 9:54 pm * Is the patient Alert and Oriented? Yes * PCP MARGIE LOPEZ * Pharmacy [facility] * Preadmission Environment Home Alone * ADLs Total Dependent * List name and contact numbers for known caregivers / representatives who currently or will assist patient after discharge: CARRIE STODDARD [phone] * Verbal permission to speak to the caregivers and representatives has been obtained from the patient. N/A * Community resources currently utilized Home Health * Please name any agencies selected above. [facility] * Additional services required to return to the preadmission environment? No * Can the patient safely return to the preadmission environment? Yes * Has this patient been hospitalized within the prior 30 days at any hospital? Yes External Providers [facility] Next Contact Date: Service Request Date: Service Type: Resolution: Reviewer: Comments: Coverage Notice Reviewer: [id number] Paloma Leon Notice Issued Date-Time: 10/03/2019 19:30 Notice Type: Patient Choice Letter Notice Delivered To: Patient Relationship to Patient: Self Manager Account Management Name: Delivery Method: HAND - Hand Delivered Yolanda Days: Prior Verbal Notification: Yes Recipient Understood Notice: Yes Recipient Signature: Yes Med Rec Note Co-signed by Attending: Coverage Notice Comment: ROBIN GALINDO Reviewer: [id number] Paloma Marinelli Notice Issued Date-Time: 10/05/2019 13:32 Notice Type: Patient Choice Letter Notice Delivered To: Patient Relationship to Patient: Manager Account Management Name: Delivery Method: - Yolanda Days: Prior Verbal Notification: Recipient Understood Notice: Yes Recipient Signature: Yes Med Rec Note Co-signed by Attending: Coverage Notice Comment: hammad Reviewer: [id number] Paloma Marinelli Notice Issued Date-Time: 10/05/2019 13:32 Notice Type: IM Discharge Notice Notice Delivered To: Patient Relationship to Patient: Manager Account Management Name: Delivery Method: - Yolanda Days: Prior Verbal Notification: Recipient Understood Notice: Yes Recipient Signature: Yes Med Rec Note Co-signed by Attending: Coverage Notice Comment: dc imm signed and put in chart. Last DP export: 10/06/19 12:49 p Patient Name: CHAZ HUGGINS #: [id number] Page 32056 at 1405 All edits/amendments must be made on the electronic document DICTATION DATE: 10/06/191403 SLAB GRINDER: JACK 10/06/191403 RPT#: [id number] DC DATE: STATUS: ADM IN [facility] [address] [place] [address] END OF REPORT
--- NOTE | 2019-10-06 14:13 | MORECARE ---
CASE MANAGEMENT DISCHARGE SUMMARY PATIENT: CHAZ HUGGINS UNIT: [id number] ADM DATE: 10/03/19 AGE: 69 : 49 SEX: M ROOM/BED: D.2206 AUTHOR: LUPE,DOC PHYSICIAN: REFERRING PHYSICIAN: RICHY PIPER MD DATE OF SERVICE: 10/06/19 Discharge Plan Patient Name: CHAZ HUGGINS Facility: [facility]:[place] : 1950 Planned Disposition: Longterm Facility Anticipated Discharge Date: Discharge Date: Expected LOS: Initial Reviewer: [id number] Initial Review Date: 10/03/2019 Generated: 10/06/19 3:12 pm Comments DCP- Discharge Planning Updated by [id number]: Maria R Marinelli on 10/06/19 1:[address] REFERRAL SENT TO [facility]. CM CALLED [facility]ARE , [phone], SPOKE TO CAROL WHO STATED THEY ARE OUT OF NETWORK. CM CALLED [facility], [phone], SPOKE TO JOSE WHO STATED THEY WILL NOT ACCEPT PATIENT BACK. CM WILL FAX REFERRAL TO [facility] AND SEE IF THEY WILL ACCEPT THE PATIENT FOR ADMISSION. CM SPOKE TO KRISHAN WHO ACCEPTED THE REFERRAL.REFERRAL FAXED FAX DC INFO TO [facility]. MARIA R MARINELLI RN, CCM DCP- Discharge Planning Updated by [id number]: Maria R Marinelli on 10/05/19 2:[address] DC PLAN: Pending to the [facility] has been returned and he has been approved for 30 days. CM faxed ALFRED to the [facility] along with PT/OT/ST. Maria R Marinelli RN, CC DCP- Discharge Planning Updated by [email or web address]: Maria R Marinelli on 10/05/19 12:[address] DC PLAN: Refusing Snf- Wants to return home with resume [facility]. ELENA Signed for [facility] - placed in patients chart. DC IMM Notification given and signed, placed in chart. CM met with patient to complete ALFRED. After completion of the ALFRED the patient stated he is refusing to go to a SNF. He stated he is going to work hard with PT and go home. CM reviewed PT eval which stated they had to encourage the patient to participate. With patient's permission CM went ahead and faxed the ALFRED just in case he needs rehab. He currently has services with [facility]. CM encouraged the patient to work with PT to ensure he is safe to dc to his home. He stated he is going to work with therapy because he does not want to go to the long term. Maria R Marinelli RN, [facility] DCP- Discharge Planning Updated by [id number]: Hermila Leon on 10/04/19 9:[address] Patient Name: CHAZ HUGGINS Admission Status: ER Accout number: [id number] Admission Date: 10-03-2019 : 1950 Admission Diagnosis: Attending: RICHY PIPER Current LOS: 1 Anticipated DC Date: Planned Disposition: Longterm Facility Primary Insurance: [facility] MEDICARE SOLUTIONS Discharge Planning Comments: CM met with patient after obtaining verbal consent. CM met with patient while in ER. His story was somewhat confusing at the time but after speaking with Ya Yates RN [phone]. CM understands a better. Patient lives home alone and was fully independent prior to his last hospitalization at [facility] in . He states he was discharged 09/30/19 after a month long stay with pneumonia. He states that he was on TPN while he was there because he is unable to eat d/t thrush in his mouth. He states that he is very weak and immobile. He states that he is unable to care for himself and his two caregivers have quit/ fired d/t stealing. [facility] has been out to see him since d/c and the patient yesterday through himself out of the chair and crawled to door. Then refused to come to ER when ambulance arrived to get him up out of floor. Ya stated that she was planning on getting patient into [facility] but then he finally agreed to come to ER for evaluation. Patient gave verbal consent for The [facility] for SNF Rehab. Patient admits that he is unable to care for himself at this time. CM will ask physician about OT, PT, and ST eval for placement. CM will continue to follow and assist as needed with discharge planning / needs. Electricity Trading Analyst: Hermila Leon DCP- Discharge Planning Updated by [id number]: Fidelina Fisher on 10/04/19 1:[address] [facility]FERRAL SENT [facility], HE IS CURRENT WITH [facility] WILL NEED TO SEND ALL EVALS WHEN THEY ARE COMPLETED DCPIA - Discharge Planning Initial Assessment Updated by [id number]: Hermila Leon on 10/04/19 9:54 pm * Is the patient Alert and Oriented? Yes * PCP MARGIE LOPEZ * Pharmacy [facility] * Preadmission Environment Home Alone * ADLs Total Dependent * List name and contact numbers for known caregivers / representatives who currently or will assist patient after discharge: CARRIE STODDARD [phone] * Verbal permission to speak to the caregivers and representatives has been obtained from the patient. N/A * Community resources currently utilized Home Health * Please name any agencies selected above. [facility] * Additional services required to return to the preadmission environment? No * Can the patient safely return to the preadmission environment? Yes * Has this patient been hospitalized within the prior 30 days at any hospital? Yes Coverage Notice Reviewer: [id number] Paloma Leon Notice Issued Date-Time: 10/03/2019 19:30 Notice Type: Patient Choice Letter Notice Delivered To: Patient Relationship to Patient: Self Tool Procurement Coordinator Name: Delivery Method: HAND - Hand Delivered Yolanda Days: Prior Verbal Notification: Yes Recipient Understood Notice: Yes Recipient Signature: Yes Med Rec Note Co-signed by Attending: Coverage Notice Comment: ROBIN GALINDO Reviewer: [id number] Paloma Marinelli Notice Issued Date-Time: 10/05/2019 13:32 Notice Type: Patient Choice Letter Notice Delivered To: Patient Relationship to Patient: Tool Procurement Coordinator Name: Delivery Method: - Yolanda Days: Prior Verbal Notification: Recipient Understood Notice: Yes Recipient Signature: Yes Med Rec Note Co-signed by Attending: Coverage Notice Comment: [facility]ammad [facility] Reviewer: [id number] Paloma Marinelli Notice Issued Date-Time: 10/05/2019 13:32 Notice Type: IM Discharge Notice Notice Delivered To: Patient Relationship to Patient: Tool Procurement Coordinator Name: Delivery Method: - Yolanda Days: Prior Verbal Notification: Recipient Understood Notice: Yes Recipient Signature: Yes Med Rec Note Co-signed by Attending: Coverage Notice Comment: dc imm signed and put in chart. Last DP export: 10/06/19 1:05 p Patient Name: CHAZ HUGGINS Page 25300 at 1413 All edits/amendments must be made on the electronic document DICTATION DATE: 10/06/191411 SALES REPRESENTATIVE BUSINESS COURSES: JACK 10/06/191411 RPT#: [id number] DC DATE: STATUS: ADM IN [facility] [address] [place] [address] END OF REPORT
[2019-10-06 16:37] VITALS: BP 111/51
--- NOTE | 2019-10-06 18:44 | NUR ---
PATIENT UP WITH SBA TO BATHROOM AND HAD SMALL BM PER STATED. ASKED PATIENT TO LEAVE FOR VIEWIGN BY STAFF.
[2019-10-06 20:00] VITALS: BP 101/59
[2019-10-07] VITALS (7 sets, daily range): BP systolic 79–122; BP diastolic 45–72
[2019-10-07 06:51] LABS: ALBUMIN 1.7 g/dL (3.4-5.0); ALKALINE PHOSPHATASE 34 U/L (30-120); ALT (SGPT) 26 U/L (10-68); BILIRUBIN - TOTAL 0.77 mg/dL (0.2-1.3); CALC OSMOLALITY 278 mosm/kg (275-300); CALCIUM 7.5 mg/dL (8.5-10.1); CARBON DIOXIDE 24.2 mmol/L (21.0-32.0); CHLORIDE - SERUM 107 mmol/L (98-107); GLUCOSE 133 mg/dL (74-106); MAGNESIUM - SERUM 2.1 mg/dL (1.8-2.4); PHOSPHOROUS 2.4 mg/dL (2.5-4.9); POTASSIUM - SERUM 3.2 mmol/L (3.5-5.1); PROTEIN - SERUM 5.1 g/dL (6.4-8.2); SODIUM 139 mmol/L (136-145); UREA NITROGEN 9 mg/dL (7-18); eGFR NON AFRICAN AMERICAN 78 mL/min (90-120)
[2019-10-07 07:32] LABS: BASOPHILS 0.4 % (0-2); EOSINOPHILS 8.2 % (0-7); HEMATOCRIT 24.7 % (42.0-54.0); IMMATURE GRANULOCYTES 0.2 % (0-5); LYMPHOCYTES 18.2 % (15-50); MCHC 32.4 g/dL (31.0-37.0); MCV 95.7 fL (80.0-100.0); MEAN PLATELET VOLUME 8.9 fL (7.4-10.4); MONOCYTES 5.1 % (2-11); NEUTROPHILS 67.9 % (40-80); PLATELET COUNT 223 10x3/uL (130-400); RBC 2.58 10x6/uL (4.20-6.10); RDW 13.1 % (11.5-14.5)
[2019-10-07 07:34] LABS: WBC 5.5 10x3/uL (4.8-10.8)
--- NOTE | 2019-10-07 08:10 | NUR ---
ALERT AND ORIENTED X4. LUNGS CTA AND DIMINISHED X4. ENCOURAGED TO USE FLUTTER VALVE. ELECTROLYTES TREATED PER PROTOCOL. IV NOTED TO RT. F/A WITH IVF INFUSING AT PRESCRIBED RATE WITH NO S/S OF INFECTION/INFILTRATION.PATIENT STATES FEELS BETTER THIS MORNING. NORCO GIVEN FOR GENERALIZED BACK PAIN 02/25. ENCOURAGED TO USE CALL LIGHT FOR ASSSIT.
--- NOTE | 2019-10-07 21:30 | NUR ---
IV OUT. RESITED TO RIGHT WRIST X 1 ATTEMPT. TOLERATED WELL. CL IN REACH.
[2019-10-08 00:29] VITALS: BP 147/51
--- NOTE | 2019-10-08 00:30 | NUR ---
HAS PULLED IV OUT. REFUSES TO HAVE IV RESTARTED. WANTS TO TALK TO DOCTOR ABOUT PICC LINE. STATES" BEEN STUCK TO MANY TIME".
--- NOTE | 2019-10-08 03:00 | NUR ---
I have reviewed this patient and I concur with the Shift Assessment completed by the Licensed Practical Nurse today this shift.
[2019-10-08 04:09] VITALS: BP 109/57
--- NOTE | 2019-10-08 04:51 | NUR ---
REFUSES LAB DRAW THIS AM.
[2019-10-08 09:22] VITALS: BP 111/65
[2019-10-08 10:10] LABS: BASOPHILS 0 % (0-2); EOSINOPHILS 6.6 % (0-7); HEMATOCRIT 23.6 % (42.0-54.0); HEMOGLOBIN 7.6 g/dL (13.5-17.5); IMMATURE GRANULOCYTES 0.2 % (0-5); LYMPHOCYTES 21.6 % (15-50); MCHC 32.2 g/dL (31.0-37.0); MCV 96.3 fL (80.0-100.0); MONOCYTES 14.1 % (2-11); NEUTROPHILS 57.5 % (40-80); PLATELET COUNT 235 10x3/uL (130-400); RBC 2.45 10x6/uL (4.20-6.10); RDW 13.4 % (11.5-14.5); WBC 4.3 10x3/uL (4.8-10.8)
[2019-10-08 10:18] LABS: ALBUMIN 1.7 g/dL (3.4-5.0); ALKALINE PHOSPHATASE 35 U/L (30-120); ALT (SGPT) 30 U/L (10-68); BILIRUBIN - TOTAL 0.55 mg/dL (0.2-1.3); CALCIUM 7.6 mg/dL (8.5-10.1); CARBON DIOXIDE 28.2 mmol/L (21.0-32.0); CHLORIDE - SERUM 108 mmol/L (98-107); CREATININE - SERUM 0.9 mg/dL (0.6-1.3); GLUCOSE 106 mg/dL (74-106); PHOSPHOROUS 2.5 mg/dL (2.5-4.9); POTASSIUM - SERUM 3.2 mmol/L (3.5-5.1); PROTEIN - SERUM 5.3 g/dL (6.4-8.2); SODIUM 141 mmol/L (136-145); VANCOMYCIN - TROUGH 14.3 ug/mL (10.0-20.0); eGFR NON AFRICAN AMERICAN 89 mL/min (90-120)
[2019-10-08 10:21] LABS: CALC OSMOLALITY 277 mosm/kg (275-300); UREA NITROGEN 5 mg/dL (7-18)
[2019-10-08 13:57] VITALS: BP 113/63
[2019-10-08 16:42] VITALS: BP 98/51
[2019-10-08 17:54] VITALS: Ht 188 cm; Wt 113.4 kg
--- NOTE | 2019-10-08 18:45 | NUR ---
20 GAUGE STARTED TOLEFT FOREARM WITH PRBC'S INFUSING WITH NO S/S OF REACTION OR INFILTRATION NOTED.
[2019-10-08 20:00] VITALS: BP 103/53
--- NOTE | 2019-10-08 21:30 | NUR ---
PRBC COMPLETED WITH NO REACTIONS NOTED. IV TO LFA INTACTT WITHOUT REDNESS OR EDEMA NOTED. CL IN REACH
[2019-10-09] VITALS: BP 102/63
--- NOTE | 2019-10-09 01:48 | NUR ---
I have reviewed this patient and I concur with the Shift Assessment completed by the Licensed Practical Nurse today this shift.
[2019-10-09 04:00] VITALS: BP 121/67
[2019-10-09 05:01] LABS: BASOPHILS 0.2 % (0-2); EOSINOPHILS 7.4 % (0-7); HEMATOCRIT 27.5 % (42.0-54.0); HEMOGLOBIN 8.9 g/dL (13.5-17.5); IMMATURE GRANULOCYTES 0.2 % (0-5); LYMPHOCYTES 27.3 % (15-50); MCH 30.6 pg (26.0-34.0); MCHC 32.4 g/dL (31.0-37.0); MCV 94.5 fL (80.0-100.0); MEAN PLATELET VOLUME 9.2 fL (7.4-10.4); MONOCYTES 13.6 % (2-11); NEUTROPHILS 51.3 % (40-80); PLATELET COUNT 256 10x3/uL (130-400); RBC 2.91 10x6/uL (4.20-6.10); RDW 13.9 % (11.5-14.5); WBC 4.2 10x3/uL (4.8-10.8)
[2019-10-09 05:16] LABS: ALBUMIN 1.8 g/dL (3.4-5.0); ANION GAP 11.2 mmol/L (8-16); BILIRUBIN - TOTAL 0.92 mg/dL (0.2-1.3); CALCIUM 7.2 mg/dL (8.5-10.1); CARBON DIOXIDE 25.4 mmol/L (21.0-32.0); CREATININE - SERUM 1.1 mg/dL (0.6-1.3); POTASSIUM - SERUM 3.6 mmol/L (3.5-5.1); PROTEIN - SERUM 5.6 g/dL (6.4-8.2)
[2019-10-09 08:55] VITALS: BP 140/77
[2019-10-09 11:51] VITALS: BP 91/61
--- NOTE | 2019-10-09 11:56 | NUR ---
REQUESTED AND GIVEN ONE HYDROCODONE PO FOR C/O BILATERAL HIP PAIN LEVEL 9. WILL MONITOR.
[2019-10-09 15:26] VITALS: BP 104/43
--- NOTE | 2019-10-09 17:59 | NUR ---
MEDICATED WITH XANAX PER ORDERS FOR C/O ANXIETY AT THIS TIME. C/L IN REACH AT BEDSIDE.
--- NOTE | 2019-10-09 19:30 | NUR ---
A&O X 4. REPORTS PAIN OF 8/10 TO BLE, SHOULDERS AND MIDDLE BACK. REDNESS/CHAFFING NOTED TO GROIN AND BUTTOCK. BUTTPASTE APPLIED BY PT. REPORTS DISCOMFORT IN MOUTH. DENIES FURTHER NEEDS, WILL CONTINUE TO MONITOR.
[2019-10-09 20:29] VITALS: BP 133/82
--- NOTE | 2019-10-09 22:21 | NUR ---
I have reviewed this patient and I concur with the Shift Assessment completed by the Licensed Practical Nurse today this shift.
[2019-10-10 00:25] VITALS: BP 87/52
[2019-10-10 08:46] VITALS: BP 130/74
--- NOTE | 2019-10-10 08:59 | NUR ---
PT REFUSED TO LET LAB TAKE BLOOD AT THIS TIME.
[2019-10-10 12:33] VITALS: BP 105/60
--- NOTE | 2019-10-10 12:49 | NUR ---
Nutrition follow-up: Diet: Regular PO intake has decreased to ~25% of meals 2/2 some lethargy from medication. Labs reviewed Wt:249# Will continue to provide food choices and honor food preferences. RDN following.
--- NOTE | 2019-10-10 14:09 | NUR ---
OT NOTE: PT SEEN IN AM. CONTINUES TO REPORT THAT HE FEELS DIZZY AND WEAK. CONTINUES WITH CONFUSION. MIN ASSIST TO SIT UP ON EOB. PT REQUIRES EXT TIME DUE TO SLOW PROCESSING. GOOD STATIC SITTING ON EOB. ABLE TO ANTHONY SHOES WITH SET UP. PERFORMED SIT TO STAND WITH MIN ASSIST. STANDING WITH WALKER WITH MIN ASSIST. PT PERFORMED STRETCHING ACT WHILE IN STANDING. PT THEN REPORTED FEELING LIGHT HEADED. PT REQUESTING THERAPIST TO HAND HIM HIS BAG FROM DRAW[facility]. PT OPENED BAG AND NUMEROUS MEDS NOTICED IN BAG. INFORMED NURSING WHO CAME AND REMOVED ALL MEDS. PT SLIGHTLY ANGRY AT THIS TIME. WILL ATTEMPT TO SEE PT AGAIN IN AFTERNOON. PT SEEN AGAIN IN PM, PT DID NOT REMEMBER ANYONE REMOVING HIS MEDS THIS AM. HE SAW BAG ON EOB AND WONDERED WHAT IT WAS DOING OUT. BED MOB WITH SPV; SIT TO STAND WITH MIN ASSIST; AMB APPROX 100 FT WITH WALKER. BACK TO BED WITH MIN ASSIST. SIMPLE GROOMING WITH SET UP. JAMES DICK, OTR/L
[2019-10-10 17:42] VITALS: BP 105/67
[2019-10-10 18:07] LABS: AEROBE ID Final report (())
--- NOTE | 2019-10-10 18:16 | NUR ---
I have reviewed this patient and I concur with the Shift Assessment completed by the Licensed Practical Nurse today this shift.
[2019-10-10 20:00] VITALS: BP 132/77
--- NOTE | 2019-10-10 20:00 | NUR ---
ALERT SITTING UP IN BED, DENIES PAIN OR NEEDS AT THIS TIME, SEE SAHIFT ASSESSMENT, CALL LIGHT IN REACH
[2019-10-11 00:30] VITALS: BP 118/72
[2019-10-11 05:12] LABS: ALBUMIN 1.7 g/dL (3.4-5.0); ANION GAP 10.9 mmol/L (8-16); BILIRUBIN - TOTAL 0.47 mg/dL (0.2-1.3); CALCIUM 7.7 mg/dL (8.5-10.1); CARBON DIOXIDE 25.5 mmol/L (21.0-32.0); CREATININE - SERUM 1.1 mg/dL (0.6-1.3); POTASSIUM - SERUM 3.4 mmol/L (3.5-5.1); PROTEIN - SERUM 5.8 g/dL (6.4-8.2)
[2019-10-11 05:17] LABS: HEMATOCRIT 27.6 % (42.0-54.0); MCH 30.6 pg (26.0-34.0); MCHC 32.6 g/dL (31.0-37.0); MCV 93.9 fL (80.0-100.0); MEAN PLATELET VOLUME 9.3 fL (7.4-10.4); NEUTROPHILS 51.8 % (40-80); RBC 2.94 10x6/uL (4.20-6.10); RDW 13.8 % (11.5-14.5); WBC 4.6 10x3/uL (4.8-10.8)
[2019-10-11 05:18] LABS: PLATELET COUNT 323 10x3/uL (130-400)
[2019-10-11 07:29] VITALS: BP 131/80
--- NOTE | 2019-10-11 07:31 | NUR ---
ALERT AND ORIENTED. LUNGS CLEAR BILATERALLY. HEART SOUNDS S1 AND S2 HEARD IN ALL [place]. BOWEL SOUNDS ACTIVE X 4. SKIN INTACT WITHOUT REDNESS. MOUTH SORE. HAS MAGIC MOUTHWASH PRN. TELEMETRY IN PLACE RUNNING CONTROLLED AFIB. IV TO KATERYNA PATENT WITHOUT REDNESS. BED LOW. FALL PRECAUTIONS IN PLACE. CALL TORRES AND PERSONAL ITEMS IN REACH. WILL CONTINUE TO MONITOR.
--- NOTE | 2019-10-11 09:30 | NUR ---
PATIENT MOVED TO ROOM 2204 BECAUSE OF ELECTRICAL BURNING SMELL. NO COMPLAINTS OR SIGNS OF DISTRESS. AMBULATED WITH PT IN HALLWAY AND TO ROOM AT THIS TIME. IV INTACT. CALL LIGHT WITHIN REACH.
--- NOTE | 2019-10-11 10:31 | NUR ---
OT NOTE: PT ORIENTED TO SELF AND PLACE, BUT REMAINS CONFUSED REGARDING MOST OTHER THINGS ( PT ATTEMPTS TO COVER CONFUSION AND TALKS AROUND THE SUBJECT, BUT HOPEFULLY THIS IS MED RELATED) UPON ENTERING ROOM TODAY, THERE WAS A STRONG ELECTRICAL SMELL COMING FROM PTS ROOM. PT REPORTED THAT HE SMELLED IT, HOWEVER, HE WAS IN BED WITH FEET ELEVATED AND VERY LETHARGIC. UP TO EOB WITHOUT ASSIST. SIMPLE GROOMING WITH SET UP; ABLE TO ANTHONY SOCKS AND SHOES WITH SET UP. STATES THAT HE DID NOT EAT BREAKFAST AND CONT TO REPORT THAT HE HAS NOT EATEN IN SEVERAL WEEKS. SIT TO STAND WITH MIN ASSIST; AMB IN ROOM AND INTO HALLWAY TO IMPROVE STRENGTH AND ENDURANCE. PT TRANSFERRED TO ANOTHER ROOM, AND UPON RETURN TO THIS ROOM, PT WAS SOB AND AGREEABLE TO APPLY O2. PT REFUSED IT EARLIER IN TMT STATING THAT HE NO LONGER NEEDED IT. TRANSFERRED TO CHAIR WITH MIN ASSIST AND VC TO BACK UP ALL THE WAY PRIOR TO SITTING DOWN. DISCUSSED SAFETY ISSUES WITH PT. PT CURRENTLY UNSAFE TO DC HOME DUE TO CONFUSION AND LIMITED INITIATION OF ADLS, HOWEVER, PHYSICALLY HE IS DOING WELL. RECOMMENDED REHAB BUT PT REFUSES. JAMES DICK,OTR/L [phone]
[2019-10-11 12:48] VITALS: BP 124/71
--- NOTE | 2019-10-11 15:00 | NUR ---
PATIENT IV LEAKING. DRESSING TAKEN DOWN AND SCREWED IV TUBING BACK ON TO CATHETER. FLUSHING WITH NO LEAKS OR PAIN. REDRESSED AND IVF RESTARTED. CALL LIGHT WITHIN REACH.
--- NOTE | 2019-10-11 17:20 | MORECARE ---
CASE MANAGEMENT DISCHARGE SUMMARY PATIENT: CHAZ HUGGINS UNIT: [id number] ADM DATE: 10/03/19 AGE: 69 : 49 SEX: M ROOM/BED: D.2204 AUTHOR: LUPE,DOC PHYSICIAN: REFERRING PHYSICIAN: RICHY PIPER MD DATE OF SERVICE: 10/11/19 Discharge Plan Patient Name: CHAZ HUGGINS Facility: [facility]:[place] : 1950 Planned Disposition: Retirement Facility Anticipated Discharge Date: Discharge Date: Expected LOS: Initial Reviewer: [email or web address] Initial Review Date: 10/03/2019 Generated: 10/11/19 6:19 pm Comments DCP- Discharge Planning Updated by [id number]: Hermila Leon on 10/11/19 4:[address] CM received a call from [place] with [facility] she asked that she be called directly when patient is getting discharged [phone]. CM will continue to follow and assist as needed with discharge planning / needs. DCP- Discharge Planning Updated by [id number]: Maria R Marinelli on 10/06/19 1:[address] REFERRAL SENT TO [facility]. CM CALLED [facility] , [phone], SPOKE TO CAROL WHO STATED THEY ARE OUT OF NETWORK. CM CALLED [facility], [phone], SPOKE TO JOSE WHO STATED THEY WILL NOT ACCEPT PATIENT BACK. CM WILL FAX REFERRAL TO [facility] AND SEE IF THEY WILL ACCEPT THE PATIENT FOR ADMISSION. CM SPOKE TO KRISHAN WHO ACCEPTED THE REFERRAL.REFERRAL FAXED FAX DC INFO TO [facility]. MARIA R MARINELLI RN, CCM DCP- Discharge Planning Updated by [id number]: Maria R Marinelli on 10/05/19 2:[address] DC PLAN: Pending to the [facility] [place] has been returned and he has been approved for 30 days. CM faxed ALFRED to the [facility] along with PT/OT/ST. Maria R Marinelli RN, CC DCP- Discharge Planning Updated by [id number]: Maria R Marinelli on 10/05/19 12:[address] DC PLAN: Refusing Snf- Wants to return home with resume [facility]. ELENA Signed for [facility] - placed in patients chart. DC IMM Notification given and signed, placed in chart. CM met with patient to complete ALFRED. After completion of the ALFRED the patient stated he is refusing to go to a SNF. He stated he is going to work hard with PT and go home. CM reviewed PT eval which stated they had to encourage the patient to participate. With patient's permission CM went ahead and faxed the ALFRED just in case he needs rehab. He currently has HH services with [facility]. CM encouraged the patient to work with PT to ensure he is safe to dc to his home. He stated he is going to work with therapy because he does not want to go to the halfway. Maria R Marinelli RN, [facility] DCP- Discharge Planning Updated by [id number]: Hermila Leon on 10/04/19 9:[address] Patient Name: CHAZ HUGGINS Admission Status: ER Accout number: [id number] Admission Date: 10-03-2019 : 1950 Admission Diagnosis: Attending: RICHY PIPER Current LOS: 1 Anticipated DC Date: Planned Disposition: Retirement Facility Primary Insurance: [facility] MEDIC[employer] SOLUTIONS Discharge Planning Comments: CM met with patient after obtaining verbal consent. CM met with patient while in ER. His story was somewhat confusing at the time but after speaking with Ya Yates RN [phone]. BERTHA understands a better. Patient lives home alone and was fully independent prior to his last hospitalization at [facility] in . He states he was discharged 09/30/19 after a month long stay with pneumonia. He states that he was on TPN while he was there because he is unable to eat d/t thrush in his mouth. He states that he is very weak and immobile. He states that he is unable to care for himself and his two caregivers have quit/ fired d/t stealing. [facility] has been out to see him since d/c and the patient yesterday through himself out of the chair and crawled to door. Then refused to come to ER when ambulance arrived to get him up out of floor. Ya stated that she was planning on getting patient into [facility] but then he finally agreed to come to ER for evaluation. Patient gave verbal consent for [facility] for SNF Rehab. Patient admits that he is unable to care for himself at this time. CM will ask physician about OT, PT, and ST eval for placement. CM will continue to follow and assist as needed with discharge planning / needs. Location Analyst: Hermila Leon DCP- Discharge Planning Updated by [id number]: Fidelinatoni Fisher on 10/04/19 1:[address] [facility], [facility] WILL NEED TO SEND ALL EVALS WHEN THEY ARE COMPLETED DCPIA - Discharge Planning Initial Assessment Updated by [id number]: Hermila Leon on 10/04/19 9:54 pm * Is the patient Alert and Oriented? Yes * PCP MARGIE LOPEZ * Pharmacy [facility] * Preadmission Environment Home Alone * ADLs Total Dependent * List name and contact numbers for known caregivers / representatives who currently or will assist patient after discharge: CARRIE STODDARD - [phone] * Verbal permission to speak to the caregivers and representatives has been obtained from the patient. N/A * Community resources currently utilized Home Health * Please name any agencies selected above. [facility] * Additional services required to return to the preadmission environment? No * Can the patient safely return to the preadmission environment? Yes * Has this patient been hospitalized within the prior 30 days at any hospital? Yes Coverage Notice Reviewer: [id number] Paloma Leon Notice Issued Date-Time: 10/03/2019 19:30 Notice Type: Patient Choice Letter Notice Delivered To: Patient Relationship to Patient: Self [employer] Name: Delivery Method: HAND - Hand Delivered Yolanda Days: Prior Verbal Notification: Yes Recipient Understood Notice: Yes Recipient Signature: Yes Med Rec Note Co-signed by Attending: Coverage Notice Comment: ROBIN DONNELLYMegan Reviewer: [id number] Paloma Marinelli Notice Issued Date-Time: 10/05/2019 13:32 Notice Type: Patient Choice Letter Notice Delivered To: Patient Relationship to Patient: Superintendent [employer] Name: Delivery Method: - Yolanda Days: Prior Verbal Notification: Recipient Understood Notice: Yes Recipient Signature: Yes Med Rec Note Co-signed by Attending: Coverage Notice Comment: [facility] Reviewer: [id number] Paloma Marinelli Notice Issued Date-Time: 10/05/2019 13:32 Notice Type: IM Discharge Notice Notice Delivered To: Patient Relationship to Patient: Superintendent [employer] Name: Delivery Method: - Yolanda Days: Prior Verbal Notification: Recipient Understood Notice: Yes Recipient Signature: Yes Med Rec Note Co-signed by Attending: Coverage Notice Comment: dc imm signed and put in chart. Last DP export: 10/06/19 1:13 p Patient Name: CHAZ HUGGINS Page [phone] at 1720 All edits/amendments must be made on the electronic document DICTATION DATE: 10/11/191718 MANAGEMENT CONSULTING: JACK 10/11/191718 RPT#: [id number] DC DATE: STATUS: ADM IN [facility] [address] [place] [address] END OF REPORT
[2019-10-11 17:35] VITALS: BP 127/78
--- NOTE | 2019-10-11 18:51 | NUR ---
PATIENT IN BED WITH IV INTACT. NO COMPLAINTS OR SIGNS OF DISTRESS. CALL LIGHT WITHIN REACH.
[2019-10-11 22:42] VITALS: BP 146/74
[2019-10-12 01:42] VITALS: BP 143/86
--- NOTE | 2019-10-12 03:06 | NUR ---
PT RESTING IN BED. EYES CLOSED. NO SIGNS OF DISTRESS. BREATHING EVEN AND UNLABORED. IV SITE RT UPPER ARM. DRESSING CLEAN DRY AND INTACT. NO SIGNS OF INFECTION OR INFULTRATION. 2LO2 NASAL CANNULA. TELE MONITOR ON 87 CONTROLLED A-FIB WITH BUNDLE BRANCH. GENERLIZED SWELLING. SKIN CLEAN DRY AND INTACT. WILL CONTINUE PLAN OF CARE. CALL LIGHT IN REACH. BED LOWERED AND LOCKED. BED RAILS UPX2.
[2019-10-12 04:52] LABS: BASOPHILS 0.2 % (0-2); EOSINOPHILS 7.8 % (0-7); HEMATOCRIT 27.5 % (42.0-54.0); HEMOGLOBIN 8.6 g/dL (13.5-17.5); IMMATURE GRANULOCYTES 0.4 % (0-5); LYMPHOCYTES 23.8 % (15-50); MCH 29.8 pg (26.0-34.0); MCHC 31.3 g/dL (31.0-37.0); MCV 95.2 fL (80.0-100.0); MEAN PLATELET VOLUME 9.2 fL (7.4-10.4); MONOCYTES 18.8 % (2-11); PLATELET COUNT 369 10x3/uL (130-400); RBC 2.89 10x6/uL (4.20-6.10); WBC 4.7 10x3/uL (4.8-10.8)
[2019-10-12 05:17] LABS: ALBUMIN 1.7 g/dL (3.4-5.0); ALKALINE PHOSPHATASE 51 U/L (30-120); ALT (SGPT) 20 U/L (10-68); BILIRUBIN - TOTAL 0.52 mg/dL (0.2-1.3); CALC OSMOLALITY 278 mosm/kg (275-300); CALCIUM 7.9 mg/dL (8.5-10.1); CARBON DIOXIDE 26.5 mmol/L (21.0-32.0); CHLORIDE - SERUM 106 mmol/L (98-107); GLUCOSE 109 mg/dL (74-106); POTASSIUM - SERUM 3.8 mmol/L (3.5-5.1); PROTEIN - SERUM 5.7 g/dL (6.4-8.2); SODIUM 141 mmol/L (136-145); UREA NITROGEN 5 mg/dL (7-18); eGFR NON AFRICAN AMERICAN 78 mL/min (90-120)
[2019-10-12 06:18] VITALS: BP 120/71
--- NOTE | 2019-10-12 07:18 | NUR ---
PT IS RESTING IN BED WITH EYES CLOSED. RESPRATIONS ARE SHALLOW/EVEN AND UNLABORED. PT IS EASILY AROUSED WITH VERBAL STIMULATION. PT IS AAO X 4. SPEECH IS SLURRED BUT PT ANSWERS ALL QUESTIONS APPROPRIATELY. PT IS IRRITABLE AT THIS TIME AND STATES "IM NOT PUTTING MY OXYGEN ON RIGHT NOW. I AM IN THE MIDDLE OF PERSONAL HYGIENE AND ITS RUDE TO DISTURB ME". NO EVIDENCE OF SOAP/WATER AT BEDSIDE. PT WITH WIPES AT BEDSIDE. PT DENIES PRESENCE OF N/V/PAIN AT THIS TIME AND REQUESTS TO BE "LEFT ALONE". BED IS IN THE LOWEST POSITION. CALL LIGHT AND BEDSIDE TABLE ARE WITHIN REACH. SIDE RAILS X 2. PT DENIES FURTHER NEEDS. WILL CONT TO MONITOR.
[2019-10-12 08:41] VITALS: BP 100/64
--- NOTE | 2019-10-12 11:26 | NUR ---
OT NOTE: ONCE AGAIN, PT REQUESTING FOR THERAPY TO COME BACK LATER BECAUSE HE HAD NOT SLEPT AT ALL THE PREVIOUS NIGHT. PT GIVES THIS SAME INFORMATION, BUT HAVE BEEN UNABLE TO CONFIRM THIS TO BE TRUE. PT STATES THAT HE DOES NOT WANT ANY BREAKFAST, BUT ALSO STATES THAT HE HASNT EATEN ANYTHING FOR MONTHS BECAUSE OF THE THRUSH IN HIS MOUTH. OFFERED TO HEAT BREAKFAST BUT PT REFUSED. CONTINUES WITH UNDERLIEING CONFUSION. STATES THAT HE WAS UP ALL NIGHT LAST NIGHT, GOT INTO THE SHOWER AND BATHED, ETC.. THIS WAS NOT FACTUAL. PT CONT TO REPORT THAT HE IS HAVING DREAMS/HALLICINATIONS...PT AMB WITH WALKER X 150 FT WITH 02, WALKER, AND GAIT BELT..LOB ON 3 OCCASSIONS. AMB IN ROOM WITH MIN ASSIST TO MANEUVER AROUND IN ROOM. MIN ASSIST TO ANTHONY GOWN; SET UP WITH SHOES. SET UP WITH WASHING FACE AND HANDS. CONT TO RECOMMEND IP REHAB OR SNF.. PT UNSAFE TO RETURN HOME INDEP. JAMES DICK, OTR/L [phone]
[2019-10-12 12:25] VITALS: BP 101/56
[2019-10-12 17:29] VITALS: BP 119/75
--- NOTE | 2019-10-12 18:39 | NUR ---
PIV TO RIGHT UPPER ARM LEAKING AND PT REPORTS BURNING. PIV REMOVED WITH CATHETER TIP INTACT. DRESSING APPLIED. UNABLE TO OBTAIN ACCESS AT THIS TIME. ER CALLED FOR IV ACCESS ASSISTANCE.
[2019-10-12 19:00] VITALS: BP 148/62
[2019-10-13] VITALS: BP 150/72
--- NOTE | 2019-10-13 02:20 | NUR ---
PT RESTINNG IN BED. EYES CLOSED. NO SIGNS OF DISTRESS. BREATHING EVEN AND UNLABORED. 3LO2 NASAL CANNULA. GENERLIZED SWELLING. NO IV SITE AT THIS TIME. WILL CONTINUE PLAN OF CARE. CALL LIGHT IN REACH. BED LOWERED AND LOCKED. BED RAILS UPX2.
--- NOTE | 2019-10-13 03:00 | NUR ---
I have reviewed this patient and I concur with the Shift Assessment completed by the Licensed Practical Nurse today this shift.
[2019-10-13 04:00] VITALS: BP 131/64
[2019-10-13 04:40] LABS: BASOPHILS 0.4 % (0-2); EOSINOPHILS 5.3 % (0-7); HEMATOCRIT 26.8 % (42.0-54.0); HEMOGLOBIN 8.4 g/dL (13.5-17.5); IMMATURE GRANULOCYTES 0.8 % (0-5); LYMPHOCYTES 26.3 % (15-50); MCH 29.8 pg (26.0-34.0); MCHC 31.3 g/dL (31.0-37.0); MEAN PLATELET VOLUME 9.3 fL (7.4-10.4); MONOCYTES 19.3 % (2-11); NEUTROPHILS 47.9 % (40-80); PLATELET COUNT 393 10x3/uL (130-400); RBC 2.82 10x6/uL (4.20-6.10); RDW 14.2 % (11.5-14.5); WBC 4.9 10x3/uL (4.8-10.8)
[2019-10-13 05:02] LABS: ALBUMIN 1.6 g/dL (3.4-5.0); ANION GAP 10.1 mmol/L (8-16); BILIRUBIN - TOTAL 0.6 mg/dL (0.2-1.3); CALCIUM 7.6 mg/dL (8.5-10.1); CARBON DIOXIDE 27.8 mmol/L (21.0-32.0); CREATININE - SERUM 1.1 mg/dL (0.6-1.3); POTASSIUM - SERUM 3.9 mmol/L (3.5-5.1); PROTEIN - SERUM 5.3 g/dL (6.4-8.2)
--- NOTE | 2019-10-13 07:36 | NUR ---
ALERT AND ORIENTED X4. O2 1L N/C. TELEMETRY INTACT WITH RESP EVEN AND UNLABORED. FALL PRECAUTIONS IN PLACE. TRACE PERIPHERAL EDMA NOTED AT THIS TIME. ENCOURAGED TO USE CALL LIGHT FOR ASSIST
[2019-10-13 09:29] VITALS: BP 140/63
--- NOTE | 2019-10-13 11:36 | NUR ---
OT NOTE: PT CONT TO REPORT THAT HE HAS NOT SLEPT AT ALL. WANTS TO GO TO BATHROOM; BED MOB WITH SPV; AMB TO BATHROOM WITH WALKER AND MIN ASSIST; REFUSING TO WEAR 02; TOILET TRANSFER WITH MIN ASSIST; 02 CHECKED AFTER A FEW MIN WITH SAT OF 74%..02 PLACED BACK ON PT.. PT REMAINED ON TOILET FOR APPROX 15 MIN AND HAD LARGE BM..PT REPORTED THAT HIS R LEG WENT TO SLEEP; REQUIRED MAX ASSIST X 2 FOR SIT TO STAND FROM TOILET; MOD ASSIST TO AMB BACK TO BED.. VERY SOB. EDUCATED PT ON THE RISKS OF RETURNING HOME ALONE. PT STATES THAT HE IS GOING HOME TOMORROW NO MATTER WHAT.. EXPLAINED TO PT THAT HE NEEDS TO GET STRONGER BECAUSE IF THIS HAPPENED AT HOME, THERE WOULD BE NO ONE THERE TO HELP HIM GET OFF THE TOILET.. HE STATES THAT HIS NEIGHBOR IS CLOSE , BUT I REMINDED PT THAT IT TOOK 2 OF US TO GET HIM UP. PT CONTINUES TO ARGUE THIS CASE. JAMES DICK, OTR/L [phone]
[2019-10-13 13:51] VITALS: BP 148/71
--- NOTE | 2019-10-13 14:11 | NUR ---
Nutrition follow-up: Diet: Regular mechanical soft with ground meat PO intake now ~75% average of last 3 meals Labs reviewed pt refusing to wear O2 at times; has been gruppy PO intake is much improved RDN will order Ensure with meals RDN following.
--- NOTE | 2019-10-13 17:38 | NUR ---
PATIENT REQUESTED MUSCLE RELAXER FOR BACK AND DENIES WANTING TO DO ENEMA AT THIS TIME DUE TO HEADACHE.
[2019-10-13 17:52] VITALS: BP 145/78
--- NOTE | 2019-10-13 19:15 | NUR ---
PATIENT RESTING WITH EYES CLOSED WHEN ENTERING THE ROOM. PATIENT AROUSES TO VERBAL STIMULI. COMPLAINS OF HEADACHE. SPOKE WITH PATIENT ABOUT ORDER FOR ENEMAS. PATIENT STATES HE WANTS TO GO THROUGH WITH THE ENEMAS BUT NOT AT THIS TIME. PATIENT CURRENTLY WEARING O2 @ 2L. TELE MONITOR. WHEEZING AND CRACKLES NOTED IN THE LEFT LOBE. ASSESSING BUTTOCKS FOR REDNESS, PATIENT HAD BOWEL MOVEMENT ALREADY. CLEANED PATIENT UP AND BED CHANGE PROVIDED. LEFT HAND IV 22G INFUSING IRON AT THIS TIME. CALL LIGHT IN REACH. CPOC.
[2019-10-13 20:00] VITALS: BP 147/72
--- NOTE | 2019-10-13 20:27 | MORECARE ---
CASE MANAGEMENT DISCHARGE SUMMARY PATIENT: CHAZ HUGGINS UNIT: [id number] ADM DATE: 10/03/19 AGE: 69 : 49 SEX: M ROOM/BED: D.2204 AUTHOR: LUPE,DOC PHYSICIAN: REFERRING PHYSICIAN: RICHY PIPER MD DATE OF SERVICE: 10/13/19 Discharge Plan Patient Name: CHAZ HUGGINS Facility: [facility]:[place] : 1950 Planned Disposition: Correction Facility Anticipated Discharge Date: Discharge Date: Expected LOS: Initial Reviewer: [email or web address] Initial Review Date: 10/03/2019 Generated: 10/13/19 9:26 pm Comments DCP- Discharge Planning Updated by [id number]: Hermila Leon on 10/13/19 7:[address] Patient requested to speak to . Patient was wanting to make sure he had 02 when time to discharge. CM explained that he would have to be evaluated within 48 hrs of discharge to see if he qualifies. ELENA completed for any DME that will accept his insurance. CM will continue to follow and assist as needed with discharge planning / needs. DCP- Discharge Planning Updated by [id number]: Hermila Leon on 10/11/19 4:[address] CM received a call from Usha with [facility] she asked that she be called directly when patient is getting discharged [phone]. CM will continue to follow and assist as needed with discharge planning / needs. DCP- Discharge Planning Updated by [id number]: Maria R Marinelli on 10/06/19 1:[address] REFERRAL SENT TO [facility]. CM CALLED [facility], [phone], SPOKE TO CAROL WHO STATED THEY ARE OUT OF NETWORK. CM CALLED [facility], [phone], SPOKE TO JOSE WHO STATED THEY WILL NOT ACCEPT PATIENT BACK. CM WILL FAX REFERRAL TO [facility] AND SEE IF THEY WILL ACCEPT THE PATIENT FOR ADMISSION. CM SPOKE TO KRISHAN WHO ACCEPTED THE REFERRAL.REFERRAL FAXED FAX DC INFO TO [facility]. MARIA R MARINELLI RN, [facility] DCP- Discharge Planning Updated by [id number]: Maria R Marinelli on 10/05/19 2:[address] DC PLAN: Pending to [facility] has been returned and he has been approved for 30 days. CM faxed ALFRED to the [facility] along with PT/OT/ST. Maria R Marinelli RN, CC DCP- Discharge Planning Updated by [id number]: Maria R Marinelli on 10/05/19 12:[address] DC PLAN: Refusing Snf- Wants to return home with resume [facility]. ELENA Signed for [facility] - placed in patients chart. DC IMM Notification given and signed, placed in chart. CM met with patient to complete ALFRED. After completion of the ALFRED the patient stated he is refusing to go to a SNF. He stated he is going to work hard with PT and go home. CM reviewed PT eval which stated they had to encourage the patient to participate. With patient's permission CM went ahead and faxed the ALFRED just in case he needs rehab. He currently has HH services with [facility]. CM encouraged the patient to work with PT to ensure he is safe to dc to his home. He stated he is going to work with therapy because he does not want to go to the [facility]. Maria R Marinelli RN, CCM DCP- Discharge Planning Updated by [id number]: Hermila Carolyn on 10/04/19 9:[address] Patient Name: CHAZ HUGGINS Admission Status: ER Accout number: [id number] Admission Date: 10-03-2019 : 1950 Admission Diagnosis: Attending: RICHY PIPER Current LOS: 1 Anticipated DC Date: Planned Disposition: Correction Facility Primary Insurance: [facility] MEDIC[facility] SOLUTIONS Discharge Planning Comments: CM met with patient after obtaining verbal consent. CM met with patient while in ER. His story was somewhat confusing at the time but after speaking with Ya Yates RN [phone]. BERTHA understands a better. Patient lives home alone and was fully independent prior to his last hospitalization at [facility] in . He states he was discharged 09/30/19 after a month long stay with pneumonia. He states that he was on TPN while he was there because he is unable to eat d/t thrush in his mouth. He states that he is very weak and immobile. He states that he is unable to care for himself and his two caregivers have quit/ fired d/t stealing. [facility] has been out to see him since d/c and the patient yesterday through himself out of the chair and crawled to door. Then refused to come to ER when ambulance arrived to get him up out of floor. Ya stated that she was planning on getting patient into [facility] but then he finally agreed to come to ER for evaluation. Patient gave verbal consent for [facility] for SNF Rehab. Patient admits that he is unable to care for himself at this time. CM will ask physician about OT, PT, and ST eval for placement. CM will continue to follow and assist as needed with discharge planning / needs. Wire Mesh Knitter: Hermila Leon DCP- Discharge Planning Updated by [id number]: Fidelina Phillip on 10/04/19 1:[address] REFERRAL SENT TO [facility] HE IS CURRENT WITH [facility] WILL NEED TO SEND ALL EVALS WHEN THEY ARE COMPLETED DCPIA - Discharge Planning Initial Assessment Updated by [id number]: Hermila Leon on 10/04/19 9:54 pm * Is the patient Alert and Oriented? Yes * PCP [facility]ARGIE [facility]OPEZ * [facility] * Preadmission Environment Home Alone * ADLs Total Dependent * List name and contact numbers for known caregivers / representatives who currently or will assist patient after discharge: CARRIE STODDARD - [phone] * Verbal permission to speak to the caregivers and representatives has been obtained from the patient. N/A * Community resources currently utilized Home Health * Please name any agencies selected above. [facility] * Additional services required to return to the preadmission environment? No * Can the patient safely return to the preadmission environment? Yes * Has this patient been hospitalized within the prior 30 days at any hospital? Yes Coverage Notice Reviewer: [id number] - Hermila Leon Notice Issued Date-Time: 10/03/2019 19:30 Notice Type: Patient Choice Letter Notice Delivered To: Patient Relationship to Patient: Self Case Mgr Name: Delivery Method: HAND - Hand Delivered Yolanda Days: Prior Verbal Notification: Yes Recipient Understood Notice: Yes Recipient Signature: Yes Med Rec Note Co-signed by Attending: Coverage Notice Comment: [facility] Reviewer: [id number] Paloma Marinelli Notice Issued Date-Time: 10/05/2019 13:32 Notice Type: Patient Choice Letter Notice Delivered To: Patient Relationship to Patient: Case Mgr Name: Delivery Method: - Yolanda Days: Prior Verbal Notification: Recipient Understood Notice: Yes Recipient Signature: Yes Med Rec Note Co-signed by Attending: Coverage Notice Comment: hammad norris Reviewer: [id number] - Maria R Marinelli Notice Issued Date-Time: 10/05/2019 13:32 Notice Type: IM Discharge Notice Notice Delivered To: Patient Relationship to Patient: Case Mgr Name: Delivery Method: - Yolanda Days: Prior Verbal Notification: Recipient Understood Notice: Yes Recipient Signature: Yes Med Rec Note Co-signed by Attending: Coverage Notice Comment: dc imm signed and put in chart. Reviewer: [email or web address] Paloma Leon Notice Issued Date-Time: 10/13/2019 20:21 Notice Type: Patient Choice Letter Notice Delivered To: Patient Relationship to Patient: Self Case Mgr Name: Delivery Method: HAND - Hand Delivered Yolanda Days: Prior Verbal Notification: Recipient Understood Notice: Yes Recipient Signature: Yes Med Rec Note Co-signed by Attending: Coverage Notice Comment: ANY DME COMPANY THAT TAKES INSURANCE Last DP export: 10/11/19 4:20 p Patient Name: CHAZ HUGGINS Page [id number] at 2026 All edits/amendments must be made on the electronic document DICTATION DATE: 10/13/192025 DIRECTOR OF HOUSING AND ENERGY SERVICES: JACK 10/13/192025 RPT#: [id number] DC DATE: STATUS: ADM IN [facility] [address] [place] [address] END OF REPORT
[2019-10-14] VITALS: BP 102/49
--- NOTE | 2019-10-14 02:30 | NUR ---
SOAP SUDS ENEMAS TILL CLEAR PER ORDER. ANTICIPATED RESULTS RECEIVED. VERY LARGE AMOUNTS OF STOOL PASSED. THREE SOAP SUDS ENEMAS USED BEFORE PATIENT CLEARED. PATIENT VERBALIZES RELIEF. BATH GIVEN, BED CHANGE PROVIDED. PATIENT RESTING WHEN LEAVING THE ROOM.
[2019-10-14 04:00] VITALS: BP 127/64
--- NOTE | 2019-10-14 04:43 | NUR ---
I have reviewed this patient and I concur with the Shift Assessment completed by the Licensed Practical Nurse today this shift.
--- NOTE | 2019-10-14 05:45 | NUR ---
I have reviewed this patient and I concur with the Shift Assessment completed by the Licensed Practical Nurse today this shift.
[2019-10-14 08:24] VITALS: BP 155/67
[2019-10-14] MEDS ORDERED: PROTONIX40 MG PO (08:49)
--- NOTE | 2019-10-14 09:00 | NUR ---
ALERT AND OREITNED X3. O2 2L N/C. TELEMETRY INTACT. PATIENT REFUSED NYSTATIN AND MUCINEX THIS AM. TAKES MEDS WHOLE WITH NO DYSPHYSIA NOTED. IVF INFUSING TO LEFT HAND WITH NO S/S OF INFECTION/INFILTRATION. PT UP AMBULATING WITH THERAPY W/O O2 TO MNITOR TOLERANCE LEVEL. FALL PRECAUTIONS IN PLACE AND ENCOURAGED TO USE CALL LIGHT FOR ASSSIT. STATES FEELS BETTER AFTER BOWEL MOVEMENTS LAST NIGHT.
--- NOTE | 2019-10-14 10:01 | NUR ---
PT 88% ON RA PLACED ON 2L/NC NOW @ 96% AMBULATED ON 2L/NC WITH SP02 AT 96%
--- NOTE | 2019-10-14 10:27 | MORECARE ---
CASE MANAGEMENT DISCHARGE SUMMARY PATIENT: CHAZ HUGGINS UNIT: [id number] ADM DATE: 10/03/19 AGE: 69 : 49 SEX: M ROOM/BED: D.2204 AUTHOR: LUPE,DOC PHYSICIAN: REFERRING PHYSICIAN: RICHY PIPER MD DATE OF SERVICE: 10/14/19 Discharge Plan Patient Name: CHAZ HUGGINS Facility: [facility]:[place] : 1950 Planned Disposition: Senior Care Facility Anticipated Discharge Date: Discharge Date: Expected LOS: Initial Reviewer: [id number] Initial Review Date: 10/03/2019 Generated: 10/14/19 11:27 am Comments DCP- Discharge Planning Updated by [id number]: Hermila Leon on 10/13/19 7:[address] Patient requested to speak to . Patient was wanting to make sure he had 02 when time to discharge. CM explained that he would have to be evaluated within 48 hrs of discharge to see if he qualifies. ELENA completed for any DME that will accept his insurance. CM will continue to follow and assist as needed with discharge planning / needs. DCP- Discharge Planning Updated by [id number]: Hermila Leon on 10/11/19 4:[address] CM received a call from Usha with [facility] she asked that she be called directly when patient is getting discharged [phone]. CM will continue to follow and assist as needed with discharge planning / needs. DCP- Discharge Planning Updated by [email or web address]: Maria R Marinelli on 10/06/19 1:[address] REFERRAL SENT TO [facility]. CM CALLED [facility], [phone], SPOKE TO CAROL WHO STATED THEY ARE OUT OF NETWORK. CM CALLED [facility], [phone], SPOKE TO JOSE WHO STATED THEY WILL NOT ACCEPT PATIENT BACK. CM WILL FAX REFERRAL TO [facility] AND SEE IF THEY WILL ACCEPT THE PATIENT FOR ADMISSION. CM SPOKE TO KRISHAN WHO ACCEPTED THE REFERRAL.REFERRAL FAXED FAX DC INFO TO [facility]. MARIA R MARINELLI RN, [facility] DCP- Discharge Planning Updated by [id number]: Maria R Marinelli on 10/05/19 2:[address] DC PLAN: Pending to the [facility] has been returned and he has been approved for 30 days. CM faxed ALFRED to the [facility] along with PT/OT/ST. Maria R Marinelli RN, [facility] DCP- Discharge Planning Updated by [id number]: Maria R Marinelli on 10/05/19 12:[address] DC PLAN: Refusing Snf- Wants to return home with resume [facility]. ELENA Signed for [facility] - placed in patients chart. DC IMM Notification given and signed, placed in chart. CM met with patient to complete ALFRED. After completion of the ALFRED the patient stated he is refusing to go to a SNF. He stated he is going to work hard with PT and go home. CM reviewed PT eval which stated they had to encourage the patient to participate. With patient's permission CM went ahead and faxed the ALFRED just in case he needs rehab. He currently has HH services with [facility]. CM encouraged the patient to work with PT to ensure he is safe to dc to his home. He stated he is going to work with therapy because he does not want to go to the [facility]. Maria R Marinelli RN, CCM DCP- Discharge Planning Updated by [id number]: Hermila Carolyn on 10/04/19 9:[address] Patient Name: CHAZ HUGGINS Admission Status: ER Accout number: [id number] Admission Date: 10-03-2019 : 1950 Admission Diagnosis: Attending: RICHY PIPER Current LOS: 1 Anticipated DC Date: Planned Disposition: Senior Care Facility Primary Insurance: [facility] MEDICARE SOLUTIONS Discharge Planning Comments: CM met with patient after obtaining verbal consent. CM met with patient while in ER. His story was somewhat confusing at the time but after speaking with Ya Yates RN [phone]. BERTHA understands a better. Patient lives home alone and was fully independent prior to his last hospitalization at [facility] in . He states he was discharged 09/30/19 after a month long stay with pneumonia. He states that he was on TPN while he was there because he is unable to eat d/t thrush in his mouth. He states that he is very weak and immobile. He states that he is unable to care for himself and his two caregivers have quit/ fired d/t stealing. [facility] has been out to see him since d/c and the patient yesterday through himself out of the chair and crawled to door. Then refused to come to ER when ambulance arrived to get him up out of floor. Ya stated that she was planning on getting patient into [facility] but then he finally agreed to come to ER for evaluation. Patient gave verbal consent for [facility] for SNF Rehab. Patient admits that he is unable to care for himself at this time. CM will ask physician about OT, PT, and ST eval for placement. CM will continue to follow and assist as needed with discharge planning / needs. Distance Learning Administrator: Hermila Leon DCP- Discharge Planning Updated by [id number]: Fidelina Phillip on 10/04/19 1:[address] REFERRAL SENT TO THE [place] HE IS CURRENT WITH [facility] WILL NEED TO SEND ALL EVALS WHEN THEY ARE COMPLETED DCPIA - Discharge Planning Initial Assessment Updated by [id number]: Hermila Leon on 10/04/19 9:54 pm * Is the patient Alert and Oriented? Yes * PCP MARGIE LOPEZ * [facility] * Preadmission Environment Home Alone * ADLs Total Dependent * List name and contact numbers for known caregivers / representatives who currently or will assist patient after discharge: CARRIE STODDARD - [phone] * Verbal permission to speak to the caregivers and representatives has been obtained from the patient. N/A * Community resources currently utilized Home Health * Please name any agencies selected above. [facility] * Additional services required to return to the preadmission environment? No * Can the patient safely return to the preadmission environment? Yes * Has this patient been hospitalized within the prior 30 days at any hospital? Yes External Providers External Provider: [facility] Next Contact Date: Service Request Date: Service Type: Resolution: Reviewer: Comments: Coverage Notice Reviewer: [id number] - Hermila Leon Notice Issued Date-Time: 10/03/2019 19:30 Notice Type: Patient Choice Letter Notice Delivered To: Patient Relationship to Patient: Self Customer Counter Associate Name: Delivery Method: HAND - Hand Delivered Yolanda Days: Prior Verbal Notification: Yes Recipient Understood Notice: Yes Recipient Signature: Yes Med Rec Note Co-signed by Attending: Coverage Notice Comment: [facility] Reviewer: [id number] Paloma Marinelli Notice Issued Date-Time: 10/05/2019 13:32 Notice Type: Patient Choice Letter Notice Delivered To: Patient Relationship to Patient: Customer Counter Associate Name: Delivery Method: - Yolanda Days: Prior Verbal Notification: Recipient Understood Notice: Yes Recipient Signature: Yes Med Rec Note Co-signed by Attending: Coverage Notice Comment: [facility] Reviewer: [id number] Paloma Marinelli Notice Issued Date-Time: 10/05/2019 13:32 Notice Type: IM Discharge Notice Notice Delivered To: Patient Relationship to Patient: Customer Counter Associate Name: Delivery Method: - Yolanda Days: Prior Verbal Notification: Recipient Understood Notice: Yes Recipient Signature: Yes Med Rec Note Co-signed by Attending: Coverage Notice Comment: dc imm signed and put in chart. Reviewer: [id number] Paloma Leon Notice Issued Date-Time: 10/13/2019 20:21 Notice Type: Patient Choice Letter Notice Delivered To: Patient Relationship to Patient: Self Customer Counter Associate Name: Delivery Method: HAND - Hand Delivered Yolanda Days: Prior Verbal Notification: Recipient Understood Notice: Yes Recipient Signature: Yes Med Rec Note Co-signed by Attending: Coverage Notice Comment: ANY [employer] THAT TAKES INSURANCE Last DP export: 10/13/19 7:27 p Patient Name: CHAZ HUGGINS Page [id number] at 1027 All edits/amendments must be made on the electronic document DICTATION DATE: 10/14/19 1027 MILLINERY DESIGNER: JACK 10/14/19 1027 RPT#: [id number] DC DATE: STATUS: ADM IN [facility] [address] [place] [address] END OF REPORT
--- NOTE | 2019-10-14 10:40 | MORECARE ---
CASE MANAGEMENT DISCHARGE SUMMARY PATIENT: CHAZ HUGGINS UNIT: [id number] ADM DATE: 10/03/19 AGE: 69 : 49 SEX: M ROOM/BED: D.2204 AUTHOR: DIOMEDES ANDRADE PHYSICIAN: REFERRING PHYSICIAN: RICHY PIPER MD DATE OF SERVICE: 10/14/19 Discharge Plan Patient Name: CHAZ HUGGINS Facility: [facility]:[place] : 1950 Planned Disposition: Long Term Facility Anticipated Discharge Date: Discharge Date: Expected LOS: Initial Reviewer: [id number] Initial Review Date: 10/03/2019 Generated: 10/14/19 11:40 am Comments DCP- Discharge Planning Updated by [id number]: Irma Salguero on 10/14/19 9:[address] Patient Name: CHAZ HUGGINS Encounter No: [id number] : 1950 Primary Insurance: [facility] MEDICARE SOLUTIONS Anticipated DC Date: Planned Disposition: HOME WITH [facility], AND OXYGEN CM SOKE WITH PATIENT ABOUT DC NEEDS. PATIENT STATED HE IS TO RESUME [employer]. PATIENT ON 4 LITERS O2. SPOKE WITH PATIENT ABOUT THE POTENTIAL NEED FOR HOME O2. ELENA SIGNED FOR ANY POTENTIAL DME PROVIDER. DC IMM EXPLAINED. PATIENT SIGNED, AND VERBALIZED UNDERSTANDING. ORIGINAL LEFT WITH PATINET. SIGNED COPY LEFT ON CHART. CALLED DENNIS FROM [employer] TO VERBALIZE DC PLAN. CALLED VENUS FROM [facility]. OXYGEN TANK WILL BE PROVIDED TO PATIENT. CM TO FOLLOW NEEDED. DCP follow-up note: Patient and family in agreement with discharge plan. Updated orders and requested information faxed to SNF. Patient\family notified of anticipated dc time. SNF phone number and contact information given to patient \family. Patient will be transported by Irma Salguero DCP- Discharge Planning Updated by [id number]: Hermila Leon on 10/13/19 7:[address] Patient requested to speak to CM. Patient was wanting to make sure he had 02 when time to discharge. CM explained that he would have to be evaluated within 48 hrs of discharge to see if he qualifies. ELENA completed for any DME that will accept his insurance. CM will continue to follow and assist as needed with discharge planning / needs. DCP- Discharge Planning Updated by [id number]: Hermila eLon on 10/11/19 4:[address] CM received a call from Usha with [facility] she asked that she be called directly when patient is getting discharged [phone]. CM will continue to follow and assist as needed with discharge planning / needs. DCP- Discharge Planning Updated by [id number]: Maria R Marinelli on 10/06/19 1:[address] REFERRAL SENT TO [facility]. CM CALLED [facility] , [phone], SPOKE TO CAROL WHO STATED THEY ARE OUT OF NETWORK. CM CALLED [facility], [phone], SPOKE TO JOSE WHO STATED THEY WILL NOT ACCEPT PATIENT BACK. CM WILL FAX REFERRAL TO [facility] AND SEE IF THEY WILL ACCEPT THE PATIENT FOR ADMISSION. CM SPOKE TO KRISHAN WHO ACCEPTED THE REFERRAL.REFERRAL FAXED FAX DC INFO TO [facility]. MARIA R MARINELLI RN, CCM DCP- Discharge Planning Updated by [email or web address]: Maria R Marinelli on 10/05/19 2:[address] DC PLAN: Pending to [facility] has been returned and he has been approved for 30 days. CM faxed ALFRED to the [facility] along with PT/OT/ST. Maria R Marinelli RN, CC DCP- Discharge Planning Updated by [id number]: Maria R Marinelli on 10/05/19 12:[address] DC PLAN: Refusing Snf- Wants to return home with resume [facility]. ELENA Signed for [facility] - placed in patients chart. DC IMM Notification given and signed, placed in chart. CM met with patient to complete ALFRED. After completion of the ALFRED the patient stated he is refusing to go to a SNF. He stated he is going to work hard with PT and go home. CM reviewed PT eval which stated they had to encourage the patient to participate. With patient's permission CM went ahead and faxed the ALFRED just in case he needs rehab. He currently has HH services with [facility]. CM encouraged the patient to work with PT to ensure he is safe to dc to his home. He stated he is going to work with therapy because he does not want to go to the residential. Maria R Marinelli RN, CCM DCP- Discharge Planning Updated by [id number]: Hermila Leon on 10/04/19 9:[address] Patient Name: CHAZ HUGGINS Admission Status: ER Accout number: [id number] Admission Date: 10-03-2019 : 1950 Admission Diagnosis: Attending: RICHY PIPER Current LOS: 1 Anticipated DC Date: Planned Disposition: Long Term Facility Primary Insurance: [facility] MEDICARE SOLUTIONS Discharge Planning Comments: CM met with patient after obtaining verbal consent. CM met with patient while in ER. His story was somewhat confusing at the time but after speaking with Ya Yates RN [phone]. CM understands a better. Patient lives home alone and was fully independent prior to his last hospitalization at [facility] in [place]. He states he was discharged 09/30/19 after a month long stay with pneumonia. He states that he was on TPN while he was there because he is unable to eat d/t thrush in his mouth. He states that he is very weak and immobile. He states that he is unable to care for himself and his two caregivers have quit/ fired d/t stealing. [facility] has been out to see him since d/c and the patient yesterday through himself out of the chair and crawled to door. Then refused to come to ER when ambulance arrived to get him up out of floor. Ya stated that she was planning on getting patient into [facility] but then he finally agreed to come to ER for evaluation. Patient gave verbal consent for [facility] for SNF Rehab. Patient admits that he is unable to care for himself at this time. CM will ask physician about OT, PT, and ST eval for placement. CM will continue to follow and assist as needed with discharge planning / needs. Business Office Manager: Hermila Leon DCP- Discharge Planning Updated by [id number]: Fidelina Fisher on 10/04/19 1:[address] REFERRAL SENT TO THE [facility], HE IS CURRENT WITH [facility] WILL NEED TO SEND ALL EVALS WHEN THEY ARE COMPLETED DCPIA - Discharge Planning Initial Assessment Updated by [id number]: Hermila Leon on 10/04/19 9:54 pm * Is the patient Alert and Oriented? Yes * PCP MARGIE LOPEZ * Pharmacy [facility] * Preadmission Environment Home Alone * ADLs Total Dependent * List name and contact numbers for known caregivers / representatives who currently or will assist patient after discharge: CARRIE STODDARD - [phone] * Verbal permission to speak to the caregivers and representatives has been obtained from the patient. N/A * Community resources currently utilized Home Health * Please name any agencies selected above. [facility] * Additional services required to return to the preadmission environment? No * Can the patient safely return to the preadmission environment? Yes * Has this patient been hospitalized within the prior 30 days at any hospital? Yes Coverage Notice Reviewer: [id number] Paloma Leon Notice Issued Date-Time: 10/13/2019 20:21 Notice Type: Patient Choice Letter Notice Delivered To: Patient Relationship to Patient: Self Extension Clerk Name: Delivery Method: HAND - Hand Delivered Yolanda Days: Prior Verbal Notification: Recipient Understood Notice: Yes Recipient Signature: Yes Med Rec Note Co-signed by Attending: Coverage Notice Comment: [employer] THAT TAKES INSURANCE Reviewer: [id number] Paloma Leon Notice Issued Date-Time: 10/03/2019 19:30 Notice Type: Patient Choice Letter Notice Delivered To: Patient Relationship to Patient: Self Extension Clerk Name: Delivery Method: HAND - Hand Delivered Yolanda Days: Prior Verbal Notification: Yes Recipient Understood Notice: Yes Recipient Signature: Yes Med Rec Note Co-signed by Attending: Coverage Notice Comment: ROBIN MEDLEY Reviewer: [id number] Paloma Marinelli Notice Issued Date-Time: 10/05/2019 13:32 Notice Type: Patient Choice Letter Notice Delivered To: Patient Relationship to Patient: Extension Clerk Name: Delivery Method: - Yolanda Days: Prior Verbal Notification: Recipient Understood Notice: Yes Recipient Signature: Yes Med Rec Note Co-signed by Attending: Coverage Notice Comment: [facility] Reviewer: [id number] Paloma Marinelli Notice Issued Date-Time: 10/05/2019 13:32 Notice Type: IM Discharge Notice Notice Delivered To: Patient Relationship to Patient: Extension Clerk Name: Delivery Method: - Yolanda Days: Prior Verbal Notification: Recipient Understood Notice: Yes Recipient Signature: Yes Med Rec Note Co-signed by Attending: Coverage Notice Comment: al imm signed and put in chart. Last DP export: 10/14/19 9:27 a Patient Name: CHAZ HUGGINS Page [id number] at 1040 All edits/amendments must be made on the electronic document DICTATION DATE: 10/14/19 104 CHIEF NURSE: JACK 10/14/19 1040 RPT#: [id number] DC DATE: STATUS: ADM IN [facility] [address] [place] [address] END OF REPORT
[2019-10-14 12:54] VITALS: BP 102/52
[2019-10-14 16:47] VITALS: BP 131/84
--- NOTE | 2019-10-14 18:34 | NUR ---
IV DISCONTINUED AND VERBALIZED UNDERSTANDING OF DISCHARGE INSTRUCTIONS. RAGHU NOTIFIED OF DISCHARGE. STABLE AT TIME OF DEPARTURE WITH O2 4L N/C.
--- NOTE | 2019-10-16 09:13 | MORECARE ---
CASE MANAGEMENT DISCHARGE SUMMARY PATIENT: CHAZ HUGGINS UNIT: [id number] ADM DATE: 10/03/19 AGE: 69 : 48 SEX: M ROOM/BED: D.2204 AUTHOR: DIOMEDES ANDRADE PHYSICIAN: REFERRING PHYSICIAN: RICHY PIPER MD DATE OF SERVICE: 10/16/19 Discharge Plan Patient Name: CHAZ HUGGINS Facility: [facility]:[place] : 1950 Planned Disposition: Jail Facility Anticipated Discharge Date: Discharge Date: 10/14/2019 Expected LOS: Initial Reviewer: [id number] Initial Review Date: 10/03/2019 Generated: 10/16/19 10:13 am Comments DCP- Discharge Planning Updated by [id number]: Irma Salguero on 10/14/19 9:[address] Patient Name: CHAZ HUGGINS Encounter No: [id number] : 1950 Primary Insurance: [facility] [employer] Anticipated DC Date: Planned Disposition: HOME WITH [facility], AND OXYGEN CM SOKE WITH PATIENT ABOUT DC NEEDS. PATIENT STATED HE IS TO RESUME [facility]. PATIENT ON 4 LITERS O2. SPOKE WITH PATIENT ABOUT THE POTENTIAL NEED FOR HOME O2. ELENA SIGNED FOR ANY POTENTIAL DME PROVIDER. DC IMM EXPLAINED. PATIENT SIGNED, AND VERBALIZED UNDERSTANDING. ORIGINAL LEFT WITH PATINET. SIGNED COPY LEFT ON CHART. CALLED DENNIS FROM [facility] TO VERBALIZE DC PLAN. CALLED VENUS FROM [facility]. OXYGEN TANK WILL BE PROVIDED TO PATIENT. CM TO FOLLOW NEEDED. DCP follow-up note: Patient and family in agreement with discharge plan. Updated orders and requested information faxed to SNF. Patient\family notified of anticipated dc time. SNF phone number and contact information given to patient \family. Patient will be transported by Irma Salguero DCP- Discharge Planning Updated by [id number]: Hermila Leon on 10/13/19 7:[address] Patient requested to speak to CM. Patient was wanting to make sure he had 02 when time to discharge. CM explained that he would have to be evaluated within 48 hrs of discharge to see if he qualifies. ELENA completed for any DME that will accept his insurance. CM will continue to follow and assist as needed with discharge planning / needs. DCP- Discharge Planning Updated by [id number]: Hermila Leon on 10/11/19 4:[address] CM received a call from Usha with [facility] she asked that she be called directly when patient is getting discharged [phone]. CM will continue to follow and assist as needed with discharge planning / needs. DCP- Discharge Planning Updated by [id number]: Maria R Marinelli on 10/06/19 1:[address] REFERRAL SENT TO [facility]. CM CALLED [facility], [phone], SPOKE TO CAROL WHO STATED THEY ARE OUT OF NETWORK. CM CALLED [facility], [phone], SPOKE TO JOSE WHO STATED THEY WILL NOT ACCEPT PATIENT BACK. CM WILL FAX REFERRAL TO [facility] AND SEE IF THEY WILL ACCEPT THE PATIENT FOR ADMISSION. CM SPOKE TO KRISHAN WHO ACCEPTED THE REFERRAL.REFERRAL FAXED FAX DC INFO TO [facility]. MARIA R MARINELLI RN, CCM DCP- Discharge Planning Updated by [id number]: Maria R Marinelli on 10/05/19 2:[address] DC PLAN: Pending to the [facility] has been returned and he has been approved for 30 days. CM faxed ALFRED to the [facility] along with PT/OT/ST. Maria R Marinelli RN, CC DCP- Discharge Planning Updated by [id number]: Maria R Marinelli on 10/05/19 12:[address] DC PLAN: Refusing Snf- Wants to return home with resume [facility]. ELENA Signed for [facility] - placed in patients chart. DC IMM Notification given and signed, placed in chart. CM met with patient to complete ALFRED. After completion of the ALFRED the patient stated he is refusing to go to a SNF. He stated he is going to work hard with PT and go home. CM reviewed PT eval which stated they had to encourage the patient to participate. With patient's permission CM went ahead and faxed the ALFRED just in case he needs rehab. He currently has HH services with [facility]. CM encouraged the patient to work with PT to ensure he is safe to dc to his home. He stated he is going to work with therapy because he does not want to go to the [facility]. Maria R Marinelli RN, CCM DCP- Discharge Planning Updated by [id number]: Hermila Leon on 10/04/19 9:[address] Patient Name: CHAZ HUGGINS Admission Status: ER Accout number: [id number] Admission Date: 10-03-2019 : 1950 Admission Diagnosis: Attending: RICHY PIPER Current LOS: 1 Anticipated DC Date: Planned Disposition: Jail Facility Primary Insurance: [facility] [employer] Discharge Planning Comments: CM met with patient after obtaining verbal consent. CM met with patient while in ER. His story was somewhat confusing at the time but after speaking with Ya Yates RN [phone]. CM understands a better. Patient lives home alone and was fully independent prior to his last hospitalization at [facility] in . He states he was discharged 09/30/19 after a month long stay with pneumonia. He states that he was on TPN while he was there because he is unable to eat d/t thrush in his mouth. He states that he is very weak and immobile. He states that he is unable to care for himself and his two caregivers have quit/ fired d/t stealing. [facility] has been out to see him since d/c and the patient yesterday through himself out of the chair and crawled to door. Then refused to come to ER when ambulance arrived to get him up out of floor. Ya stated that she was planning on getting patient into [facility] but then he finally agreed to come to ER for evaluation. Patient gave verbal consent for [facility] for SNF Rehab. Patient admits that he is unable to care for himself at this time. CM will ask physician about OT, PT, and ST eval for placement. CM will continue to follow and assist as needed with discharge planning / needs. Associate Professor Of Church Music: Hermila Leon DCP- Discharge Planning Updated by [id number]: Fidelina Phillip on 10/04/19 1:[address] REFERRAL SENT TO [facility], HE IS CURRENT WITH [facility] WILL NEED TO SEND ALL EVALS WHEN THEY ARE COMPLETED DCPIA - Discharge Planning Initial Assessment Updated by [id number]: Hermila Leon on 10/04/19 9:54 pm * Is the patient Alert and Oriented? Yes * PCP MARGIE LOPEZ * [facility] * Preadmission Environment Home Alone * ADLs Total Dependent * List name and contact numbers for known caregivers / representatives who currently or will assist patient after discharge: CARRIE STODDARD - [phone] * Verbal permission to speak to the caregivers and representatives has been obtained from the patient. N/A * Community resources currently utilized Home Health * Please name any agencies selected above. [facility] * Additional services required to return to the preadmission environment? No * Can the patient safely return to the preadmission environment? Yes * Has this patient been hospitalized within the prior 30 days at any hospital? Yes External Providers External Provider: [facility] Next Contact Date: Service Request Date: Service Type: Resolution: Reviewer: Comments: Coverage Notice Reviewer: [id number] Paloma Leon Notice Issued Date-Time: 10/03/2019 19:30 Notice Type: Patient Choice Letter Notice Delivered To: Patient Relationship to Patient: Self Refrigeration Plant Operator Name: Delivery Method: HAND - Hand Delivered Yolanda Days: Prior Verbal Notification: Yes Recipient Understood Notice: Yes Recipient Signature: Yes Med Rec Note Co-signed by Attending: Coverage Notice Comment: [facility] Reviewer: [id number] Paloma Marinelli Notice Issued Date-Time: 10/05/2019 13:32 Notice Type: Patient Choice Letter Notice Delivered To: Patient Relationship to Patient: Refrigeration Plant Operator Name: Delivery Method: - Yolanda Days: Prior Verbal Notification: Recipient Understood Notice: Yes Recipient Signature: Yes Med Rec Note Co-signed by Attending: Coverage Notice Comment: [facility] Reviewer: [id number] Paloma Marinelli Notice Issued Date-Time: 10/05/2019 13:32 Notice Type: IM Discharge Notice Notice Delivered To: Patient Relationship to Patient: Refrigeration Plant Operator Name: Delivery Method: HAND - Hand Delivered Yolanda Days: Prior Verbal Notification: Recipient Understood Notice: Yes Recipient Signature: Yes Med Rec Note Co-signed by Attending: Coverage Notice Comment: dc imm signed and put in chart. Reviewer: [id number] Paloma Leon Notice Issued Date-Time: 10/13/2019 20:21 Notice Type: Patient Choice Letter Notice Delivered To: Patient Relationship to Patient: Self Refrigeration Plant Operator Name: Delivery Method: HAND - Hand Delivered Yolanda Days: Prior Verbal Notification: Recipient Understood Notice: Yes Recipient Signature: Yes Med Rec Note Co-signed by Attending: Coverage Notice Comment: ANY [employer] THAT TAKES INSURANCE Reviewer: [id number] Paloma Salguero Notice Issued Date-Time: 10/14/2019 15:30 Notice Type: IM Discharge Notice Notice Delivered To: Patient Relationship to Patient: Refrigeration Plant Operator Name: Delivery Method: HAND - Hand Delivered Yolanda Days: Prior Verbal Notification: Recipient Understood Notice: Yes Recipient Signature: Yes Med Rec Note Co-signed by Attending: Coverage Notice Comment: dcc imm provided. Last DP export: 10/14/19 9:40 a Patient Name: CHAZ HUGGINS Page [phone] at 0913 All edits/amendments must be made on the electronic document DICTATION DATE: 10/16/19912 TIN POT OPERATOR: JACK 10/16/19912 RPT#: [id number] DC DATE:10/14/19 STATUS: DIS IN [facility] [address] [place] [address] END OF REPORT
== END 2019-10-14 18:34 | disposition home health service (06) | DRG 871 ==
LOC: D.ER 16:47 → D.MS 19:14
PROVIDERS: Emergency Medicine; Family Medicine; ADMIT Family Medicine; ATTEND Family Medicine
DX: A41.9 Sepsis, unspecified organism (principal); J15.8 Pneumonia due to other specified bacteria; E43 Unspecified severe protein-calorie malnutrition; B37.81 Candidal esophagitis; B37.0 Candidal stomatitis; R62.7 Adult failure to thrive; I10 Essential (primary) hypertension; I73.9 Peripheral vascular disease, unspecified; F41.8 Other specified anxiety disorders; F43.10 Post-traumatic stress disorder, unspecified; M54.9 Dorsalgia, unspecified